=== PATIENT | male | born 1980 | race Caucasian/White ===

== ENCOUNTER → 2019-10-13 | Outpatient (CLI) | payer MEDICAID | LOC: M OUTALCOH 09:25 | PROVIDERS: ATTEND Psychiatry & Neurology Addiction Medicine | DX: F10.20 Alcohol dependence, uncomplicated (principal) ==

== ENCOUNTER 2019-11-14 13:18 | Outpatient (RCR) | payer MEDICAID | END 2019-11-16 | LOC: M OUTALCOH 13:18 | PROVIDERS: ATTEND Psychiatry & Neurology Addiction Medicine | DX: F10.20 Alcohol dependence, uncomplicated (principal); F17.200 Nicotine dependence, unspecified, uncomplicated ==

== ENCOUNTER → 2019-12-16 | Outpatient (RCR) | payer MEDICAID | LOC: M OUTALCOH 11-18 11:16 | PROVIDERS: ATTEND Psychiatry & Neurology Addiction Medicine | DX: F10.20 Alcohol dependence, uncomplicated (principal); F17.200 Nicotine dependence, unspecified, uncomplicated ==

== ENCOUNTER 2020-01-13 11:00 | Outpatient (RCR) | payer OTHER, MEDICAID | END 2020-01-16 | LOC: M OUTALCOH 11:00 | PROVIDERS: ATTEND Psychiatry & Neurology Addiction Medicine | DX: F10.20 Alcohol dependence, uncomplicated (principal); F17.200 Nicotine dependence, unspecified, uncomplicated ==

== ENCOUNTER 2020-02-09 10:00 | Outpatient (RCR) | payer MEDICAID, OTHER | END 2020-02-16 | LOC: M OUTALCOH 10:00 | PROVIDERS: ATTEND Psychiatry & Neurology Addiction Medicine | DX: F10.20 Alcohol dependence, uncomplicated (principal); F17.200 Nicotine dependence, unspecified, uncomplicated ==

== ENCOUNTER 2020-03-12 14:37 | Outpatient (RCR) | payer MEDICAID, OTHER | END 2020-03-17 | LOC: M OUTALCOH 14:37 | PROVIDERS: ATTEND Psychiatry & Neurology Addiction Medicine | DX: F10.20 Alcohol dependence, uncomplicated (principal); F17.200 Nicotine dependence, unspecified, uncomplicated ==

== ENCOUNTER 2020-04-14 13:35 | Outpatient (RCR) | payer MEDICAID | END 2020-04-17 | LOC: M OUTALCOH 13:35 | PROVIDERS: ATTEND Psychiatry & Neurology Addiction Medicine | DX: F10.20 Alcohol dependence, uncomplicated (principal); F17.200 Nicotine dependence, unspecified, uncomplicated ==

== ENCOUNTER → 2020-05-17 | Outpatient (RCR) | payer MEDICAID | LOC: M OUTALCOH 04-19 13:23 | PROVIDERS: ATTEND Psychiatry & Neurology Addiction Medicine | DX: F10.20 Alcohol dependence, uncomplicated (principal); F17.200 Nicotine dependence, unspecified, uncomplicated ==

== ENCOUNTER 2020-06-09 12:00 | Outpatient (RCR) | payer MEDICAID | END 2020-06-17 | LOC: M OUTALCOH 12:00 | PROVIDERS: ATTEND Psychiatry & Neurology Addiction Medicine | DX: F10.20 Alcohol dependence, uncomplicated (principal); F17.200 Nicotine dependence, unspecified, uncomplicated ==

== ENCOUNTER 2020-07-02 13:32 | Emergency (ER) | payer OTHER, MEDICAID ==
[~2020-07-02] VITALS: Ht 182.9 cm; Wt 76.6 kg
--- OUTSIDE RECORDS SUMMARY | 2020-07-02 13:41 | CCD ---
Author Author [facility] Organization [facility] Address Unknown Phone Unavailable Care Team Providers Care Bone Cooking Operator Name Role Phone Ella GUAMAN MD Unavailable Unavailable Ella GUAMAN MD Unavailable Unavailable Ella GUAMAN MD Unavailable Unavailable Ella GUAMAN MD Unavailable Unavailable Ella GUAMAN MD Unavailable Unavailable Ella GUAMAN MD Unavailable Unavailable Ella GUAMAN MD Unavailable Unavailable Ella GUAMAN MD Unavailable Unavailable Ella GUAMAN MD Unavailable Unavailable Ella GUAMAN MD Unavailable Unavailable Ella GUAMAN MD Unavailable Unavailable Ella GUAMAN MD Unavailable Unavailable Ella GUAMAN MD Unavailable Unavailable Ella GUAMAN MD Unavailable Unavailable Ella GUAMAN MD Unavailable Unavailable ANGIE ., T AILEEN . Unavailable Unavailable ADAMS ., T AILEEN . Unavailable Unavailable Chelsie ECHAVARRIA MD Unavailable Unavailable Chelsie ECHAVARRIA MD Unavailable Unavailable Chelsie ECHAVARRIA MD Unavailable Unavailable Chelsie ECHAVARRIA MD Unavailable Unavailable Chelsie ECHAVARRIA MD Unavailable Unavailable Chelsie ECHAVARRIA MD Unavailable Unavailable Chelsie ECHAVARRIA MD Unavailable Unavailable Chelsie ECHAVARRIA MD Unavailable Unavailable Chelsie ECHAVARRIA MD Unavailable Unavailable Chelsie ECHAVARRIA MD Unavailable Unavailable Chelsie ECHAVARRIA MD Unavailable Unavailable Chelsie ECHAVARRIA MD Unavailable Unavailable Chelsie ECHAVARRIA MD Unavailable Unavailable Richelle, L Cheri FRUIT OR NUT PICKER Unavailable Unavailable Richelle, L Cheri FRUIT OR NUT PICKER Unavailable Unavailable Richelle, L Cheri FRUIT OR NUT PICKER Unavailable Unavailable Richelle, L Cheri FRUIT OR NUT PICKER Unavailable Unavailable Richelle, L Cheri FRUIT OR NUT PICKER Unavailable Unavailable Richelle, L Cheri FRUIT OR NUT PICKER Unavailable Unavailable Richelle, L Cheri FRUIT OR NUT PICKER Unavailable Unavailable Richelle, L Cheri FRUIT OR NUT PICKER Unavailable Unavailable Richelle, L Cheri FRUIT OR NUT PICKER Unavailable Unavailable Richelle, L Cheri FRUIT OR NUT PICKER Unavailable Unavailable Richelle, L Cheri FRUIT OR NUT PICKER Unavailable Unavailable Richelle, L Cheri FRUIT OR NUT PICKER Unavailable Unavailable Richelle, L Cheri FRUIT OR NUT PICKER Unavailable Unavailable Richelle, L Cheri FRUIT OR NUT PICKER Unavailable Unavailable Richelle, L Cheri FRUIT OR NUT PICKER Unavailable Unavailable Richelle, L Cheri FRUIT OR NUT PICKER Unavailable Unavailable Richelle, L Cheri FRUIT OR NUT PICKER Unavailable Unavailable Richelle, L Cheri FRUIT OR NUT PICKER Unavailable Unavailable Richelle, L Cheri FRUIT OR NUT PICKER Unavailable Unavailable Richelle, L Cheri FRUIT OR NUT PICKER Unavailable Unavailable Richelle, L Cheri FRUIT OR NUT PICKER Unavailable Unavailable Richelle, L Cheri FRUIT OR NUT PICKER Unavailable Unavailable Richelle, L Cheri FRUIT OR NUT PICKER Unavailable Unavailable Richelle, L Cheri FRUIT OR NUT PICKER Unavailable Unavailable Richelle, L Cheri FRUIT OR NUT PICKER Unavailable Unavailable Richelle, L Cheri FRUIT OR NUT PICKER Unavailable Unavailable Richelle, L Cheri FRUIT OR NUT PICKER Unavailable Unavailable Richelle, L Cheri FRUIT OR NUT PICKER Unavailable Unavailable Richelle, L Cheri FRUIT OR NUT PICKER Unavailable Unavailable Richelle, L Cheri FRUIT OR NUT PICKER Unavailable Unavailable Richelle, L Cheri FRUIT OR NUT PICKER Unavailable Unavailable Richelle, L Cheri FRUIT OR NUT PICKER Unavailable Unavailable Richelle, L Cheri FRUIT OR NUT PICKER Unavailable Unavailable Richelle, L Cheri FRUIT OR NUT PICKER Unavailable Unavailable Richelle, L Cheri FRUIT OR NUT PICKER Unavailable Unavailable Richelle, L Cheri FRUIT OR NUT PICKER Unavailable Unavailable Richelle, L Cheri FRUIT OR NUT PICKER Unavailable Unavailable Santa Bolden MD Unavailable Unavailable Santa Bolden MD Unavailable Unavailable Santa Bolden MD Unavailable Unavailable Santa Bolden MD Unavailable Unavailable Santa Bolden MD Unavailable Unavailable Santa Bolden MD Unavailable Unavailable Santa Bolden MD Unavailable Unavailable Santa Bolden MD Unavailable Unavailable Santa Bolden MD Unavailable Unavailable Santa Bolden MD Unavailable Unavailable Santa Bolden MD Unavailable Unavailable Santa Bolden MD Unavailable Unavailable Santa Bolden MD Unavailable Unavailable Santa Bolden MD Unavailable Unavailable Santa Bolden MD Unavailable Unavailable Santa Bolden MD Unavailable Unavailable Santa Bolden MD Unavailable Unavailable Rabbia, C Jessenia Unavailable Unavailable Rabbia, C Jessenia Unavailable Unavailable Rabbia, C Jessenia Unavailable Unavailable SuryadeChelsie robert MD Unavailable Unavailable SuryadeChelsie robert MD Unavailable Unavailable SuryadevarChelsie guerra MD Unavailable Unavailable SuryadeChelsie robert MD Unavailable Unavailable SuryadeChelsie robert MD Unavailable Unavailable SuryadeChelsie robert MD Unavailable Unavailable SuryadevarChelsie guerra MD Unavailable Unavailable SuryadevarChelsie guerra MD Unavailable Unavailable SuryadeChelsie robert MD Unavailable Unavailable SuryadeChelsie robert MD Unavailable Unavailable SuryadeChelsie robert MD Unavailable Unavailable SuryadevarChelsie guerra MD Unavailable Unavailable SuryadevarChelsie guerra MD Unavailable Unavailable SuryadevarChelsie guerra MD Unavailable Unavailable SuryadevarChelsie guerra MD Unavailable Unavailable SuryadeChelsie robert MD Unavailable Unavailable SuryadeChelsie robert MD Unavailable Unavailable SuryadeChelsie robert MD Unavailable Unavailable SurChelsie williamson MD Unavailable Unavailable SuryadeChelsie robert MD Unavailable Unavailable SuryadeChelsie robert MD Unavailable Unavailable SuryadeChelsie robert MD Unavailable Unavailable SuryadeChelsie robert MD Unavailable Unavailable SuryadeChelsie robert MD Unavailable Unavailable SuryadeChelsie robert MD Unavailable Unavailable SuryadeChelsie robert MD Unavailable Unavailable SuryadeChelsie robert MD Unavailable Unavailable SuryadeChelsie robert MD Unavailable Unavailable SuryaChelsie lo MD Unavailable Unavailable SurChelsie williamson MD Unavailable Unavailable SuryaChelsie ol MD Unavailable Unavailable SuryaChelsie lo MD Unavailable Unavailable SuryadeChelsie robert MD Unavailable Unavailable Suryadevara C Amcody SUAZO Unavailable Unavailable SuryadevaraChelsie Amcody MD Unavailable Unavailable SuryadevaraChelsie Amcody MD Unavailable Unavailable SuryadevarChelsie guerra Amcody MD Unavailable Unavailable Suryadevara, Chelsie Amcody MD Unavailable Unavailable Suryadevara, C Amcody MD Unavailable Unavailable Suryadevara, C Amcody MD Unavailable Unavailable Suryadevara, C Amcody MD Unavailable Unavailable Suryadevara, C Amcody MD Unavailable Unavailable Suryadevara, C Amcody MD Unavailable Unavailable Suryadevara, C Amcody MD Unavailable Unavailable Suryadevara, C Amcody MD Unavailable Unavailable Suryadevara, C Amcody MD Unavailable Unavailable Suryadevara, C Amcody MD Unavailable Unavailable Suryadevara, C Amcoyd MD Unavailable Unavailable Suryadevara, C Amcody MD Unavailable Unavailable Suryadevara, C Amcody MD Unavailable Unavailable Suryadevara, C Amcody MD Unavailable Unavailable Suryadevara, C Amcody MD Unavailable Unavailable Suryadevara, C Amcody MD Unavailable Unavailable Mahapatra, Angana DO Unavailable Unavailable Mahapatra, Angana DO Unavailable Unavailable Mahapatra, Angana DO Unavailable Unavailable Mahapatra, Angana DO Unavailable Unavailable Mahapatra, Angana DO Unavailable Unavailable Mahapatra, Angana DO Unavailable Unavailable Mahapatra, Angana DO Unavailable Unavailable Mahapatra, Angana DO Unavailable Unavailable Mahapatra, Angana DO Unavailable Unavailable Mahapatra, Angana DO Unavailable Unavailable Mahapatra, Angana DO Unavailable Unavailable Mahapatra, Angana DO Unavailable Unavailable Mahapatra, Angana DO Unavailable Unavailable Mahapatra, Angana DO Unavailable Unavailable Mahapatra, Angana DO Unavailable Unavailable Mahapatra, Angana DO Unavailable Unavailable Mahapatra, Angana DO Unavailable Unavailable Mahapatra, Angana DO Unavailable Unavailable Mahapatra, Angana DO Unavailable Unavailable Mcdermott, F Lisa MD Unavailable Unavailable Mcdermott, F Lisa MD Unavailable Unavailable Mcdermott, F Lisa MD Unavailable Unavailable Mcdermott, F Lisa MD Unavailable Unavailable Mcdermott, F Lisa MD Unavailable Unavailable Mcdermott, F Lisa MD Unavailable Unavailable Mcdermott, F Lisa MD Unavailable Unavailable Mcdermott, F Lisa MD Unavailable Unavailable Mcdermott, F Lisa MD Unavailable Unavailable Mcdermott, F Lisa MD Unavailable Unavailable Mcdermott, Santa Gonzalez MD Unavailable Unavailable Mcdermott, Santa Gonzalez MD Unavailable Unavailable Mcdermott, F Lisa SUAZO Unavailable Unavailable Mcdermott, F Lisa SUAZO Unavailable Unavailable Mcdermott, F Lisa SUAZO Unavailable Unavailable Mcdermott, F Lisa SUAZO Unavailable Unavailable Mcdermott, F Lisa SUAZO Unavailable Unavailable Mcdermott, Santa Gonzalez MD Unavailable Unavailable Mcdermott, Santa Gonzalez MD Unavailable Unavailable Tirso GARCIA Unavailable Unavailable Mirna Hernandez MD Unavailable Unavailable Melo Sanchez MD Unavailable Unavailable LaMee, R Allan Unavailable LaMee, R Allan Unavailable LaMee, R Allan Unavailable LaMee, R Allan Unavailable YUKO, JOCELIN PA-C Unavailable Unavailable YUKO, JOCELIN PA-C Unavailable Unavailable YUKO, JOCELIN PA-C Unavailable Unavailable YUKO, JOCELIN PA-C Unavailable Unavailable YUKO, JOCELIN PA-C Unavailable Unavailable YUKO, JOCELIN PA-C Unavailable Unavailable YUKO, JOCELIN PA-C Unavailable Unavailable YUKO, JOCELIN PA-C Unavailable Unavailable YUKO, JOCELIN PA-C Unavailable Unavailable YUKO, JOCELIN PA-C Unavailable Unavailable YUKO, JOCELIN PA-C Unavailable Unavailable YUKO, JOCELIN PA-C Unavailable Unavailable YUKO, JOCELIN PA-C Unavailable Unavailable YUKO, JOCELIN PA-C Unavailable Unavailable YUKO, JOCELIN PA-C Unavailable Unavailable YUKO, JOCELIN PA-C Unavailable Unavailable YUKO, JOCELIN PA-C Unavailable Unavailable YUKO, JOCELIN PA-C Unavailable Unavailable YUKO, JOCELIN PA-C Unavailable Unavailable YUKO, JOCELIN PA-C Unavailable Unavailable YUKO, JOCELIN PA-C Unavailable Unavailable YUKO, JOCELIN PA-C Unavailable Unavailable YUKO, JOCELIN PA-C Unavailable Unavailable YUKO, JOCELIN PA-C Unavailable Unavailable YUKO, JOCELIN PA-C Unavailable Unavailable YUKO, JOCELIN PA-C Unavailable Unavailable YUKO, JOCELIN PA-C Unavailable Unavailable YUKO, JOCELIN PA-C Unavailable Unavailable YUKO, JOCELIN PA-C Unavailable Unavailable UYKO, JOCELIN PA-C Unavailable Unavailable YUKO, JOCELIN PA-C Unavailable Unavailable YUKO, JOCELIN PA-C Unavailable Unavailable YUKO, JOCELIN PA-C Unavailable Unavailable YUKO, JOCELIN PA-C Unavailable Unavailable YUKO, JOCELIN PA-C Unavailable Unavailable Eranki, P Anabelle Unavailable Unavailable Eranki, P Anabelle Unavailable Unavailable Eranki, P Anabelle Unavailable Unavailable Eranki, P Anabelle Unavailable Unavailable Eranki, P Anabelle Unavailable Unavailable Eranki, P Anabelle Unavailable Unavailable Eranki, P Anabelle Unavailable Unavailable Eranki, P Anabelle Unavailable Unavailable Eranki, P Anabelle Unavailable Unavailable Eranki, P Anabelle Unavailable Unavailable Eranki, P Anabelle Unavailable Unavailable Eranki, P Anabelle Unavailable Unavailable Eranki, P Anabelle Unavailable Unavailable Eranki, P Anabelle Unavailable Unavailable Eranki, P Anabelle Unavailable Unavailable Eranki, P Anabelle Unavailable Unavailable Eranki, P Anabelle Unavailable Unavailable Eranki, P Anabelle Unavailable Unavailable Eranki, P Anabelle Unavailable Unavailable Eranki, P Anabelle Unavailable Unavailable Eranki, P Anabelle Unavailable Unavailable Eranki, P Anabelle Unavailable Unavailable Eranki, P Anabelle Unavailable Unavailable Eranki, P Anabelle Unavailable Unavailable Eranki, P Anabelle Unavailable Unavailable Eranki, P Anabelle Unavailable Unavailable Eranki, P Anabelle Unavailable Unavailable Eranki, P Anabelle Unavailable Unavailable Eranki, P Anabelle Unavailable Unavailable Eranki, P Anabelle Unavailable Unavailable Eranki, P Anabelle Unavailable Unavailable Eranki, P Anabelle Unavailable Unavailable Eranki, P Anabelle Unavailable Unavailable Eranki, P Anabelle Unavailable Unavailable Eranki, P Anabelle Unavailable Unavailable Eranki, P Anabelle Unavailable Unavailable Eranki, P Anabelle Unavailable Unavailable Eranki, P Anabelle Unavailable Unavailable Eranki, P Anabelle Unavailable Unavailable Eranki, P Anabelle Unavailable Unavailable Eranki, P Anabelle Unavailable Unavailable Eranki, P Anabelle Unavailable Unavailable Eranki, P Anabelle Unavailable Unavailable Eranki, P Anabelle Unavailable Unavailable Eranki, P Anabelle Unavailable Unavailable Eranki, P Anabelle Unavailable Unavailable Eranki, P Anabelle Unavailable Unavailable Eranki, P Anabelle Unavailable Unavailable Eranki, P Anabelle Unavailable Unavailable Eranki, P Anabelle Unavailable Unavailable Eranki, P Anabelle Unavailable Unavailable Eranki, P Anabelle Unavailable Unavailable Eranki, P Anabelle Unavailable Unavailable Eranki, P Anabelle Unavailable Unavailable Eranki, P Anabelle Unavailable Unavailable Eranki, P Anabelle Unavailable Unavailable Eranki, P Anabelle Unavailable Unavailable Re-disclosure Warning The records that you are about to access may contain information from federally-assisted alcohol or drug abuse programs. If such information is present, then the following federally mandated warning applies: This information has been disclosed to you from records protected by federal confidentiality rules (42 CFR part 2). The federal rules prohibit you from making any further disclosure of this information unless further disclosure is expressly permitted by the written consent of the person to whom it pertains or as otherwise permitted by 42 CFR part 2. A general authorization for the release of medical or other information is NOT sufficient for this purpose. The Federal rules restrict any use of the information to criminally investigate or prosecute any alcohol or drug abuse patient.The records that you are about to access may contain highly sensitive health information, the redisclosure of which is protected by Article 27-F of the [facility] Public Health law. If you continue you may have access to information: Regarding HIV / AIDS; Provided by facilities licensed or operated by the [facility] Office of Mental Health; or Provided by the [facility] Office for People With Developmental Disabilities. If such information is present, then the following [facility] mandated warning applies: This information has been disclosed to you from confidential records which are protected by state law. State law prohibits you from making any further disclosure of this information without the specific written consent of the person to whom it pertains, or as otherwise permitted by law. Any unauthorized further disclosure in violation of state law may result in a fine or alf sentence or both. A general authorization for the release of medical or other information is NOT sufficient authorization for further disc losure. Allergies and Adverse Reactions Type Description Substance Reaction Status Data Source(s ) DRUG INGREDI OLIVE OIL OLIVE OIL Rash [facility] ivory soap ivory soap [facility] Drug allergy bismuth subsalicylate bismuth subsalicylate [facility] Family History Family Member Name Family Member Gender Family Member Status Date o f Status Description Data Source(s) Unknown Condition [facility] Unknown Condition [facility] Unknown Condition [facility] Unknown Condition [facility] Encounters Encounter Providers Location Date Indications Data Source(s ) Outpatient Attender: Dale Milan MD 10/16/2019 12:00: 00 AM EDT [facility] Emergency [id number] 08/26/2019 05:42 :00 PM EDT - 08/26/2019 09:38:00 PM EDT Emesis, Cough, r/o [place] Virus [facility] pital Emesis, Cough, r/o [place] Virus Patient discharged. Outpatient Attender: Dale Milan MD 08/21/2019 12:00: 00 AM [facility] Outpatient Attender: Anabelle ElliottReferrer: Dale guerra MD 08/13/2019 12:00:00 AM [facility] Outpatient Attender: JOCELIN Jamesonrer: Dale williamson MD 08/08/2019 12:00:00 AM [facility] Outpatient Attender: Dale Milan MD 07/31/2019 12:00: 00 AM [facility] Emergency [id number] 07/30/2019 08:13 :00 AM EST - 07/30/2019 11:31:00 AM EST Presence of other vascular implants and grafts [facility] Presence of other vascular implants and grafts Patient discharged. Outpatient Attender: JOCELIN Jamesonrer: Dale Milan MD [id number] 07/30/2019 12:00:00 AM EST - 07/30/2019 12:56:04 PM ES T Inflammatory conditions of jaws [facility] Inflammatory conditions of jaws Outpatient Attender: Cheri Peoples NPReferrer: Dale stevenson MD 07/28/2019 12:00:00 AM [facility] Outpatient Attender: JOCELIN Jamesonrer: Dale williamson MD 07/25/2019 12:00:00 AM EST [facility] Emergency 07/24/2019 07:57:00 AM EST - 07/24/2019 08:47:00 AM EST Pic Line issue [facility] Pic Line issue Patient discharged. Emergency Attender: JACOBO ECHAVARRIA MD [id number] 07/24/2019 04:36:00 AM EST - 07/24/2019 07:33:00 AM EST Encounter for other specified aftercare [facility] Encounter for other specified aftercare Patient discharged. Outpatient Referrer: Panfilo Morrow DO 07/22/2019 03:38:00 PM EST Inflammatory conditions of jaws [facility] Inflammatory conditions of jaws Outpatient Attender: Dale Milan MD [id number] 12:00:00 AM EST - 07/17/2019 04:07:01 PM EST Fracture of mandible of other specified site, subsequent encounter for fracture with nonunion [facility] Fracture of mandible of other specified site, subsequent encounter for fracture with nonunion Outpatient Attender: Dale Milan MD 07/17/2019 12:00: 00 AM [facility] Outpatient Attender: AILEEN ADAMS .Referrer: AILEEN ADAMS . 07/14/2019 12:00:00 AM EST Abscess of salivary gland [facility] Abscess of salivary gland Outpatient Attender: Dale Milan MDReferrer: Dale silva MD 07/08/2019 12:00:00 AM EST Abscess of [facility] gland [facility] Abscess of salivary gland Outpatient Attender: Dale Milan MD [id number] 12:00:00 AM EST - 07/03/2019 03:00:58 PM EST [facility] Out[facility] Attender: Darren Sanchez MD 07/02/2019 12:00:00 AM EST Veterinary Virologist [facility] Veterinary Virologist Outpatient Attender: Dale Milan MDReferrer: Dale silva MD 06/28/2019 12:00:00 AM [facility] Inpatient Attender: Dale Bae DAttender: KARLY GUAMAN MDAdmitter: Dale Milan MDReferrer: Allan Luis [id number] 0 12:00:00 AM EST - 07/01/2019 12:00:00 AM EST Fracture of unspecified part of body of right mandible, subsequent encounter for fracture with nonunion [facility] Fracture of unspecified part of body of right mandible, subsequent encounter for fracture with nonunion Patient discharged. Emergency Attender: Mirna Hernandez MD 06/25 02:59:00 PM EST - 06/25/2019 03:35:00 PM EST [facility]/mouth [facility]/mouth and jaw complaint Patient discharged. 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 Outpatient Attender: Jessenia MccrackenReferrer: Dale Milan MD 06/24/2019 12:00:00 AM [facility] pretest Outpatient Attender: Dale Milan MD [id number] 12:00:00 AM [facility] - 06/19/2019 02:05:24 PM EST Fracture of unspecified part of body of right mandible, subsequent encounter for fracture with nonunion [facility] Fracture of unspecified part of body of right mandible, subsequent encounter for fracture with nonunion Emergency Attender: Lisa Mcdermott MD 06/08/20 03:45:00 PM [facility] - 06/08/2019 05:27:00 PM EST [facility]/Jaw injury Patient discharged. Outpatient Attender: Dale Milan MD 06/05/2019 12:00: 00 AM [facility] Outpatient Attender: Dale Milan MD 05/29/2019 12:00: 00 AM [facility] Emergency Attender: ROLANDO GARCIAAttender: Raffi kessler MD [id number] 05/27/2019 12:00:00 AM [facility] - 05/27/2019 05:14:00 PM EST Fracture of unspecified part of body of right mandible, initial encounter for closed fracture [facility] Fracture of unspecified part of body of right mandible, initial encounter for closed fracture Patient discharged. Medications Medication Brand Name Start Date Product Form Dose Route Admi nistrative Instructions Pharmacy Instructions Status Indications Reaction Description Data Source(s) Ibuprofen 200 MG Oral Capsule Ibuprofen 09/26/2019 12:00:00 AM EDT active [facility] ([facility]) Acetaminophen 325 MG Oral Tablet acetaminophen (TYLENO L) tablet 975 mg acetaminophen (TYLENOL) tablet 975 mg 07/30/2019 09:45:00 AM EST 97 5 mg Oral completed 975 mg, Oral, O nce, 07/30/19 at 0945, For 1 dose
Maximum daily dose of acetaminophen is 3,000 mg from all sources in 24 hours.
[facility] Medication administered onsite Amoxicillin 875 MG / Clavulanate 125 MG Oral Tablet Amoxicillin-Pot Clavulanate 875-125 MG Oral Tablet Amoxicillin-Pot Clavulanate 875-125 MG Oral Tablet 07/30/2019 12:00:00 AM EST 1 {tbl} Oral active Take 1 tablet by mouth Two Times Daily for 7 days [facility] Amoxicillin 875 MG / Clavulanate 125 MG Oral Tablet Amoxicillin-Pot Clavulanate 875-125 MG Oral Tablet Amoxicillin-Pot Clavulanate 875-125 MG Oral Tablet 07/30/2019 12:00:00 AM EST 1 {tbl} Oral active Take 1 tablet by mouth Two Times Daily [facility] chlorhexidine gluconate 1.2 MG/ML Mouthw venice chlorhexidine (PERIDEX) 0.12 % solution 15 mL chlorhexidine (PERIDEX) 0.12 % solution 15 mL 07/24/19 20 09:00:00 AM EST 15 mL Mouth/Throat aborted 15 mL, Mouth/Throat, 2 Times Daily, First dose on Yarelis 07/24/19 at 0900, For 30 days
Do not swallow.
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 Use as directed 15 mLs in the mouth or throat Three times daily [facility] 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 sodium chloride 0.9 % SOLN 50 mL with ertapenem 1 g SOLR 1,0 00 mg 07/02/2019 12:00:00 AM EST 1000 mg Intravenous active Inject 1,000 mg into the vein every 24 (twenty-four) hours [facility] 24 HR Nicotine 0.583 MG/HR Transdermal P atch Nicotine 14 MG/24HR Transdermal Patch 24 Hour (NICODERM CQ) Nicotine 14 MG/24HR Transdermal Patch 24 Hour (NICODERM CQ) 07/02/2019 12:00:00 AM EST 1 {patch} Transdermal active Place 1 patch onto the skin daily [facility] 1 ML heparin sodium, porcine 100 UNT/ML Injection Heparin Lock Flush 100 UNIT/ML Intravenous Solution Heparin Lock Flush 100 UNIT/ML Intravenous Solution 07/02/2019 12:00:00 AM EST 500 U Intracatheter aborted Encounter for long- term (current) use of antibioticsOsteomyelitis of mandible 5 mLs by Intracatheter route as needed (PRN for after IV infusion and as needed) [facility] Encounter for long-term (current) use of antibiotics Osteomyelitis of mandible Ertapenem Sodium 1 GM Intravenous Solution Reconstituted (IN VANZ) [id number] 07/02/2019 12:00:00 AM EST 1 g Intravenous a borted Encounter for long-term (current) use of antibioticsOsteomyelitis of mandible Inject 1 g into the vein every 24 (twenty-four) hours [facility] Encounter for long-term (current) use of antibiotics Osteomyelitis of mandible Sodium Chloride Flush 0.9 % Intravenous Solution [id number] 1 07/02/2019 12:00:00 AM EST 10 mL Intravenous aborted En counter for long-term (current) use of antibioticsOsteomyelitis of mandible Inject 10 mLs into the vein as needed (for before and after infusion and PRN) [facility] Encounter for long-term (current) use of antibiotics Osteomyelitis of mandible Vitamin B 12 0.1 MG Oral Tablet Cyanocobalamin 100 MCG Oral Tablet Cyanocobalamin 100 MCG Oral Tablet 07/02/2019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 METABOLIC PANEL COMPREHENSIVE METABOLIC PANEL Rou lizzie 07/14/2019 1:00 PM EST 07/14/2019 06:00:00 PM [facility] SEDIMENTATION RATE RBC AUTOMATED SEDIMENTATION RATE, AUTOMATED Routine 07/08/2019 4:30 AM EST 07/08/2019 09:30:00 AM [facility] BLOOD COUNT COMPLETE AUTO&AUTO DIFRNTL WBC COUNT CBC AND DIFFER ENTIAL Routine 07/08/2019 4:30 AM EST 07/08/2019 09:30:00 AM [facility] C-REACTIVE PROTEIN C-REACTIVE PROTEIN Routine 07/08/2019 4:[address] 07/08/2019 09:30:00 AM [facility] COMPREHENSIVE METABOLIC PANEL COMPREHENSIVE METABOLIC PANEL Rou lizzie 07/08/2019 4:30 AM EST 07/08/2019 09:30:00 AM [facility] CREATININE BLOOD CREATININE WITH GFR Routine 07/01/2019 9:44 AM ES T 07/01/2019 02:44:00 PM [facility] DRUG SCREEN QUALITATIVE VANCOMYCIN VANCOMYCIN, TROUGH Routine 06/30/2019 6:13 AM EST 06/30/2019 11:13:00 AM [facility] PICC ULTRASOUND - BEDSIDE PROCEDURE PICC ULTRASOUND - BEDSI DE PROCEDURE Routine 06/29/2019 8:17 AM EST 06/29/2019 01:17:00 PM [facility] FOLIC ACID SERUM FOLATE Routine 06/28/2019 8:35 PM EST 06/29/2019 01:35:00 AM [facility] SEDIMENTATION RATE RBC AUTOMATED SEDIMENTATION RATE, AUTOMATED Routine 06/28/2019 8:33 PM EST 06/29/2019 01:33:00 AM [facility] C-REACTIVE PROTEIN C-REACTIVE PROTEIN Routine 06/28/2019 8:[address] 06/29/2019 01:33:00 AM [facility] CYANOCOBALAMIN VITAMIN B-12 VITAMIN B12 Routine 06/28/2019 8:33 PM EST 06/29/2019 01:33:00 AM [facility] XR CHEST FRONTAL ONLY [id number] XR CHEST FRONTAL ONLY [id number] Routine 06/28/2019 2:20 PM EST 06/28/2019 07:20:00 PM [facility] RADIOLOG EXAM MANDIBLE COMPL MINIMUM 4 VIEWS XR MANDIBLE 4 OR MORE VIEWS [id number] Routine 06/28/2019 10:12 AM EST 06/28/2019 03:12:49 PM [facility] CUL BACT XCPT URINE BLOOD/STOOL AEROBIC ISOL BX/SURG TISSUE CUL TURE 1 Routine 06/27/2019 6:37 PM EST 06/27/2019 11:37:00 PM [facility] CUL BACT XCPT URINE BLOOD/STOOL AEROBIC ISOL WOUND CULTURE Ro utine 06/27/2019 6:36 PM EST 06/27/2019 11:36:00 PM [facility] OPEN TREATMENT, MANDIBULAR FX, COMPLICATED, MULTIPLE A PPROACHES W/INT FIXATION OPEN TREATMENT, MANDIBULAR FX, COMPLICATED, MULTIPLE APPROACHES W/INT FIXATION 06/27/2019 2:09 PM EST 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 06/27/2019 07:09:00 PM EST - 06/28/2019 12:39:00 AM EST Closed Fracture Of Right Side Of Mandibular Body With Nonunion [facility] Closed Fracture Of Right Side Of Mandibu lar Body With Nonunion CUL BACT XCPT URINE BLOOD/STOOL AEROBIC ISOL WOUND CULTURE ST AT 06/26/2019 10:32 AM EST 06/26/2019 03:32:00 PM [facility] CT MAXILLOFACIAL W/CONTRAST MATERIAL CT MAXILLOFACIAL WITH CONT RAST [id number] STAT 06/26/2019 10:13 AM EST 06/26/2019 03:13:07 PM [facility] EKG ED PHYSICIAN INTERPRETATION EKG ED PHYSICIAN INTERPRETATION Routine 06/26/2019 9:52 AM EST 06/26/2019 02:52:43 PM [facility] EKG 12-LEAD - CMAXX REPORT EKG 12-LEAD - CMAXX REPORT 06/26/2019 9:46 AM EST 06/26/2019 02:46:13 PM [facility] EKG 12-LEAD - CMAXX REPORT EKG 12-LEAD - CMAXX REPORT 06/26/2019 9:46 AM EST 06/26/2019 02:46:13 PM [facility] EKG 12-LEAD EKG 12-LEAD STAT 06/26/2019 9:46 AM EST 06/26/2019 02:46:13 PM [facility] ETHYL ALCOHOL LEVEL ETHYL ALCOHOL LEVEL STAT 06/26/2019 9:21 AM EST 06/26/2019 02:21:00 PM [facility] PROTHROMBIN TIME PROTIME INR Routine 06/26/2019 9:21 AM EST 06/26/2019 02:21:00 PM [facility] BLOOD COUNT COMPLETE AUTO&AUTO DIFRNTL WBC COUNT CBC AND DIFFER ENTIAL STAT 06/26/2019 9:21 AM EST 06/26/2019 02:21:00 PM [facility] PHOSPHORUS INORGANIC PHOSPHORUS LEVEL Routine 06/26/2019 9:[address] 06/26/2019 02:21:00 PM [facility] MAGNESIUM MAGNESIUM LEVEL Routine 06/26/2019 9:21 AM EST 06/26/2019 02:21:00 PM [facility] COMPREHENSIVE METABOLIC PANEL COMPREHENSIVE METABOLIC PANEL STA T 06/26/2019 9:21 AM EST 06/26/2019 02:21:00 PM [facility] SURGERY CASE REQUEST OUTSIDE FACILITY ONLY SURGERY CA SE REQUEST OUTSIDE FACILITY ONLY Routine 06/19/2019 5:10 PM EST Closed Fracture Of Right Side Of Mandibular Body With Nonunion 06/19/2019 10:10:40 PM EST Closed Fracture Of Right Side Of Mandibular Body With Nonunion [facility] Closed Fracture Of Right Side Of Mandibu lar Body With Nonunion DRUGS OF ABUSE, URINE DRUGS OF ABUSE, URINE STAT 05/27/2019 10:0 7 AM EST 05/27/2019 03:07:00 PM [facility] ETHYL ALCOHOL LEVEL ETHYL ALCOHOL LEVEL STAT 05/27/2019 9:24 AM EST 05/27/2019 02:24:00 PM [facility] BLOOD COUNT COMPLETE AUTO&AUTO DIFRNTL WBC COUNT CBC AND DIFFER ENTIAL STAT 05/27/2019 8:06 AM EST 05/27/2019 01:06:00 PM [facility] BASIC METABOLIC PANEL CALCIUM TOTAL BASIC METABOLIC PANEL STAT 05/27/2019 8:06 AM EST 05/27/2019 01:06:00 PM [facility] CT MAXILLOFACIAL W/O CONTRAST MATERIAL CT MAXILLOFACIAL WIT HOUT CONTRAST [id number] STAT 05/27/2019 7:59 AM EST 05/27/2019 12:59:31 PM [facility] Results ID Date Data Source [id number] 08/27/2019 04:17:50 PM EDT [facility] Name Value Range Interpretation Code Description Data Chhaya rce(s) Supporting Document(s) ED Provider Note [facility] UJRJAg1wUqIYDeCx25/ZOWdyQJOtk5AqIFhrMQh7EZtvMODdZ3EtGSY0cW5iGST9OHaUYyZaAbMrFrVr lbm [file] VDXnCOKaKcSiNTCEWVjtLW8LDS3vjsT8OJ1ScTZkBPRlYJIceXIvLOe9T78snIWqLHieSH5CLRX+Harry+ Hz6XTYFjHUAnYOHqPsRwRNKPXfJlJ5TcD6DPv8TpN8 LdIA57nSliwjQlGJwiBR5COA5hZQUuGIQRSI5EhTTstO7uobXcYiQyYEUKNeLuG81nhLYbAQZcYNIgMH DpLs1TYCLhZ8LaajVbpVwmpcYpSMTaXBJQIL7RYHdtnrDclMKchBjdFY56hRiyUV2PSq3LSsEkER3tki 4CfSCfOl0EEZYnNu5ZFKYsBCViAGWvKCG0EGKdSmFd ILzxJVYuGLOxXAS0JZPeFULzRV8GLhXrSWDwOObvUbJeLFGyOHJzgw7ZUVKtRUTdMMf4UEAzNYLvEYBn VNarLMSjSXHmPCE8IDKrHHLyPZ9WXfVkOZRzTQF8VYMpXXAiKXTojr8RAMAyMIUvPjl6RDDiMQEwRSQt GMxeGJVsAQYhIPMyQPUeWBRsSW3RFsFpIABlUMYzKv abQFKaSGPmgl9KUMNuFSAkABAnEAGoBCHyFZJjCCvfIPMjGOT8YQi6JYEvQWTnEP9VYyIeDGReIAFiQg noYAZpKJVdsb3VKFGgOMIpTVF6CyUgCSOnKHUxPTbkRQRrFUZ9XZZ9BNQkVHQxKM9QOrOlUPAsAZR0Lf IeGDKmMSNkmx0EOEIcEYJwTpufMuCcFDKnPRQwYWxd UYRtFEM4ZpNbICJlKEWgID9NZiJbFPVaNSq4GUEtOJPnNUTacn4GNJOdWVVqJEedTlIxBBRvGEVjFDpa ROHzGKH5SQGcHQBrFMNcBI5IFeOkCCNzJYeyKLuoIJXhYMXbfd9QLPGgBPMyDESlWCRuJWBfDGOdIAfa WEFmXXLiQPPkHCQfKZAqEL3SHmRdQOLwFsXbNtOaKT PgOMFnht2FGYQzHLTyHVF5VYQoMWThMRKlZYypCSDnUXYcPda9IKUrRLSpEM9ALbTsNAYpUnR6ZGEcTQ DrQKKifr1TaGAisXjuqw4ROVzXDw6IoNilNID2EXobBq4qzHLkIuTgNHECVv1AhiQpRLHbNLQPLDvdKK GoEZWjQ7PrIkVjEFLqHYCjUHZ2GtS5JoDcRfPsJcqr IoRdOdF9PjLdFJUsPdDdKjSvTQIfKNRjDAKkCxYnYhF3QCX0CRU+CJ0rPNe+Ov4Eb3OkyrU3jdGdMYlb QFq2Wv9DYUXWS0QUXx== ID Date Data Source [id number] 07/30/2019 02:10:14 PM EST [facility] Name Value Range Interpretation Code Description Data Chhaya rce(s) Supporting Document(s) ED Provider Note [facility] XLDMBb1cIjCXMfLt74/GLOsnGOUck4RjOQjaYXb8JZabLZDwO1VzQKI4uX5hORV4GVjYKbQlYxMeFwUq lbm [file] 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+Yn4qkwFjiuhbvE0BqDrzhGENj3H4ttuNpe5oYutVMEgV8kitmeHSKmARX/ClOJ2ENN+onzpw/dPCK [file] 0xUoqTkdNjbSGVyaMRBO0AdA0h1jRxIeqrvrfF/golf ball molder [file] AgICAgICAgICAgICAgICAgICAgICAgICAgICAgICAgICAgICAgICAgICAgICAgICANCiAgICAgICAgIC AgICAgICAgICAgICAgICAgICAgICAgICAgICAgICAg ICAgICAgICAgICAgICAgICAgICAgICAgICAgICAgICAgICAgICAgICAgICAgICAgICAgICAgICAgICAN CiAgICAgICAgICAgICAgICAgICAgICAgICAgICAgICAgICAgICAgICAgICAgICAgICAgICAgICAgICAg ICAgICAgICAgICAgICAgICAgICAgICAgICAgICAgIC AgICAgICAgICANCiAgICAgICAgICAgICAgICAgICAgICAgICAgICAgICAgICAgICAgICAgICAgICAgIC AgICAgICAgICAgICAgICAgICAgICAgICAgICAgICAgICAgICAgICAgICAgICAgICAgICANCiAgICAgIC AgICAgICAgICAgICAgICAgICAgICAgICAgICAgICAg ICAgICAgICAgICAgICAgICAgICAgICAgICAgICAgICAgICAgICAgICAgICAgICAgICAgICAgICAgICAg ICANCiAgICAgICAgICAgICAgICAgICAgICAgICAgICAgICAgICAgICAgICAgICAgICAgICAgICAgICAg ICAgICAgICAgICAgICAgICAgICAgICAgICAgICAgIC AgICAgICAgICAgICANCiAgICAgICAgICAgICAgICAgICAgICAgICAgICAgICAgICAgICAgICAgICAgIC AgICAgICAgICAgICAgICAgICAgICAgICAgICAgICAgICAgICAgICAgICAgICAgICAgICAgICANCiAgIC AgICAgICAgICAgICAgICAgICAgICAgICAgICAgICAg ICAgICAgICAgICAgICAgICAgICAgICAgICAgICAgICAgICAgICAgICAgICAgICAgICAgICAgICAgICAg ICAgICANCiAgICAgICAgICAgICAgICAgICAgICAgICAgICAgICAgICAgICAgICAgICAgICAgICAgICAg ICAgICAgICAgICAgICAgICAgICAgICAgICAgICAgIC AgICAgICAgICAgICAgICANCiAgICAgICAgICAgICAgICAgICAgICAgICAgICAgICAgICAgICAgICAgIC AgICAgICAgICAgICAgICAgICAgICAgICAgICAgICAgICAgICAgICAgICAgICAgICAgICAgICAgICANCj w/jWPqQ2voyTOippV0K6scTr6YGa1BLJ4ce7VuSFOw KRicceGnZeiNYxYwMAPvYslPRok0JElkRX7HgFYtH3TmW8UoUHzsDQ7PIKCbUPSzbNFcJHJhAOAuSaE6 BMJnKPixKV1GmOSvKCglKJApFEJmDpIaFVTcWRFcNUFkMEKcVOWTZSUsAYOmSeRaLBAbRZQrZTsuMKGY HCP5LMYfToGoUCNuQCJcLsRwAJNQNS1DGlKsO0GtxW 50IDEwDQo+Jt9FXM0md9HgECy9UtKwZU5wlh8PDEsQLfHuW7RelkI7KFT5UHThYv3YUCKbPKOswCP1EW IfFGVLDcKdA3ZmkV78HSQTBb4+LCbtsjCdPqnYZyK4AWEuw2ArIBi9JT2YSFHiZQe1bHUmFLDuEQBrrt csKRLqGl70TYItUgjjPGGdQJaaLhHHnUfdPEHsUVUL YOT5AIBpKGKoPcFgAEBlTRyvXsUHVQoDDbXfX4Gsi5FiCqD3ILNmArGtGMrzGYMfVoInIW73tAuzFY1G QGKjFVGiKO37FTD9FIFkVz0VOIZeHcZ7aOK0QJWqNWTEBz9+CPzmfnSlAsbAGoW6DAZbk7PrBCh7QT5F PKHfTWc6tJFhAXRoMBCrlipjUZThKe04GTAwXnpkAH IpWSxvUnOWnPnzXJHhFHLOXKR4UJGkCYPkNoGzBANdLMpoWjRUKHbOKaOuM4Yhv7YzRtUfKuSrSDMrI2 iHTfMjVDIkHsAchFfpOR6BPbMpZ6QnrjEifVG3JfPlXUZBOpKoF7GpJBNoYJbvMBWVDFzuZU9PCEt2KI K0TVMtQs5QWp1XZmGrBS2bwx6DLHozAYKxHwhSPcf4 NQzhIG8AvWWyKKxMCVSBt4MalvHswIHNeEddnAFmQDCvJLTbZ1tcALUQSCO3FNIbQXFaIfYvILExSDct AFBMSCbUDhUtI6Kmk0QpAcQoLCXtWUGhJ2sPMaRwVYM1KDNcpHvwLD3JIvQaP3WtykRiaRJ9AxDdQUZH CjCuT6LiGVQsLEmiZDTJGBhaGV1HCKx8ATPgYAFaAg 8EPm1YBfJkPT9xiu1EMMMtXGFpTboPAwl4BOmcYE5SlGZfWYaEBZEVcfdzI6VqDc20YRVpBsezTpRmzb liKHZfLDWKbZPjzSTkB7rmQFNZQHH1MBKaJYMmIwMuJZRtCAfvTKJJAPrEXkZzL4Pmb4JwMeQdHYRzHU OwN8rUHgQkGEojVE96hVvuGR2TDDYrZXPgIK36VDL5 TFEsNd8XKOVoCVPoauV5QUTzFIQOYl7+HVdbusEbXghFPsRgIULib5ZyMRs2MS5BOXBbOExiLC8PFJUm lL2mJCzsXK4AZtV8WDCcVIMYRoSxP88kwZWuVIm9K5SiVaYjZHQuEobfHEZmPUgvGxImAGDqViPgLTkd ID4+ID4+FBxdWV7EYPfmkiCgKTPtVk4DJWLyZDCrNY 8zBXHgRBUlO2A9hXlxKIKAYcRuQ6tvaknnRB7xBDBbY027tYobcfDeAVC1QXPjLo5HBRDcQSO2DTYijI ZzNPFuXXPGTDsoNR3FiFBzLGZ2sR5tHDnlJJIgMHNkA6oFQaMhfYwyIB50jSppyzEcfMXrZDn+Pg0KZW 7bz3MhXJw3wuTgWUwkAYEkTOeaHRGjVNDuKNDeORE4 TEH2IHXYEtHcCIDgYORxCBidGNJkWWYlnc0GNRDfQIP8AJD6UBYzULEhABUqBIdzZERwXXKqOoR9IYRt TDZmNS4KOxQnAMPiCXKqUBslPLHmDWHwfj9WWZDwIFNnQjSwWWZkYTVsYPQtNHfaDVBqEVVzTVClRZSl KXFoZE6CEzVjJIMeCBOtLKLzLBVxUYThwf9WZWGnJD AgZmS3CdSrHNIuKEKaWSrqNGHqPSC2CPh6KLZpLWRuWO5VXeFsIXKqKFnkLZjlZZLmWKXvjr0KUJKySG VgImY9BPOhAHFzVOFfOAhtEPUfNCXkNQr3RQGfPNAkJZ3ITrSwEJHmLIA2RAfhRGUgLSKsuc6YNOJmNF FoBeLwRUMaLUOfCTEpGKshMCWuLMJ8XBU3XBJoWOPf LT0JBxIkPNLaEAcoVeFpPKOtWASeol3QMBCxRQEbWJD5EuJzWUTwGEDzAYipMUSsXGZvEPIvTVVhRIZu PW0DJbIoMDPrNbN8NXwcXCMpIKUotf2DUUYbCRBsWWPhFPYbQYWrZMWqXRgmAUVfSPU0RBMmKKEuZUGx CP5MIwDiDMOoBsrrAhrvFCBuZEUcgp5TRMDqLOArOW E7FSFcJHFyOVLnUBkjWSGtADK9NBdrKAQkGKAaZL4RBzEcKLSqXyQ8TvWpBQXnACEojr3ZFEFtZHJtPE rdQHAdMIDyGKPhNDwmCKRtTRAkXXPuTKZcGSGgOM4JBtStXNFiCfU3KmDnXUNaAVWpux2NOFWyAKNpHj U1TaHqYPZxVGOjNJrfXTNzGWVmWuNnGYPfTGEiDM0J SkMwRWPiIvDwRhQqNWObIMHufw3FYBHmRVHrNyBjXwFhOBHkKNZgKGnrVXLrQACyQfWyAXIfTZWdQW8I BrJtMHTkAIW1BFLjJSEdZEAggo4GDWCmSMW8SCPuHlGhMQIgRCSdVEyyXBWhKMB7VESrUCPiIOXxPP1T XrXqPNMjYOA2JLZaXYYpQUDniu8XSLGxULF7DJo4Xd TqUDCnGHOrOXusOGLmXZG0GLDsXNOhIAYaBX1HGaTyWGVeBAwzUgxjMPCfXJZkrn9VSTPgITO3BdWnSh FzIXMwKCTnLRgyQCJoPCH8GPAoXRAyTRQmZI1GNjSbCVYvDEogVMXoRDDcZZYaup9KNJLnMAO1MEViVS PbDJVeMHVePRgxFUHmBLG8EQZ3MAShLNXgYK1FAbBi KZDoPKN9UwbkJIQdLUTjxj9FPUEpBVX4NRIcCCQfSIElYCHpCNvvOASkMVWiJhZ0NFGdANTaFS4UPgBu PLTyQBO4ERPaGKCaFILnjz3MQNUaYBR4TCE1HDMqGNRaTPMaFEgxEHHmYWYqSuRkILRsPKNeOU1NYkPq CXitSMTJErg2ROogK7n6EKZ8Gb7HH7Vvs5VuPFAoPY NEJQtmMZ5rbpQxCFFsBg9AH5xVYyaiM6HoKNTlFXB1GNM4I1DpWnozDPCkD5W3CrB1M4AgMB0tNRC9VA ApEjMoWpBjHNioWaYqUVEeDANbVuK7CRd8NqRoPsDcBG3WBr5GJdP8FVV6jMYxJo7QVTN3WTACLjFeGS 9GDQo= ID Date Data Source [id number] 07/30/2019 12:57:15 PM EST [facility] Name Value Range Interpretation Code Description Data Chhaya rce(s) Supporting Document(s) Progress Note [facility] CFKKCr3vCdJZWyBb75/WSIyhKITad1WyFLstIYa4YIpdBSGzA0IpZDU7uG6fZEA8VHgEOpRrFtMrSpWl lbm [file] 0e/Jodie/BSKYATi8X8f8g21DPY2sQsUMDQiKaGJM0lfYchW7sfTMqybXVLMYRFcOnwxXVYHPJnSMN+f6J DBTL784h43iDILuxkbqU3fqPKW+dAbQG4X0wLAUrEm GITRZ25ELaM+xwip0uld8NdXES/i4TFbPNTarJm+hhsdFCPx+3/aSjCBq8sb3mwXpFpc9z1J/leUPUWR x900/q/I17WedBJ1bnMN9ZXUoDA2DQBrpDkjihmHNOes082iTyjFXtnGN1SsqTuGLmKLg0xAcmVR7Yix qY/ajducraPAnpYjxGzLKwjUBDJj7IogV+cfyXhwsm /3ORzAFlMi4zoyafXTAl602jpE7EadsleJb5jbGFV9JUuDmaDQAXLYD7YsYukp+X2VAOGofpFF7oBQK8 3Ol8aD9Usv5lmF3/KIO26Pu2dxWhO6r0vivlbKdomv5p45JrJ2i+xDXd24wfG6Eff5vDByOSnQC0tIvI 5Tdup/hqnQ5RcNZi/ZjT2P8PZCVDkwUECPVx/0fNAd Dntn/K9FIeFmXUZjBi+Azaw5XST+ozZWkEI7+XXaQQ9LF7TeQRcZjfD9AqdB2ZU8odHyE2eurrilqdaT uRWii5QryMJy4Rck9wOR3XJrTZTabjVJIOjLOp6etiUWtT3ypK0enxKYrx3U010e9hTFilgSCCcK3bts qEvKho4vEDDM8ObJT4dVfSI9c+1FIBSLop1IukPg+n A+TglCaf1Ec0JFUhATCA9IEZ8cTkJVymhRIYV0ETXGnelbRl6lLkErjPfuHb5r2op9SXUe8z8Sq99lAL HQkUvOwP16HwMkmwWw4d+YXUQKFvwEfdKRE0QEKLaJlMr3Kls8IB6DCpICRYA+0KbtCnQGNHv9kb0/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 [file] AgICAgICAgICAgICAgICAgICAgICAgICAgICAgICAgICAgICAgICAgICAgICAgICAgICAgICAgICAgIC AgICAgICAgICAgICAgICAgICAgICAgICAgICAgICAgICANCiAgICAgICAgICAgICAgICAgICAgICAgIC AgICAgICAgICAgICAgICAgICAgICAgICAgICAgICAg ICAgICAgICAgICAgICAgICAgICAgICAgICAgICAgICAgICAgICAgICAgICANCiAgICAgICAgICAgICAg ICAgICAgICAgICAgICAgICAgICAgICAgICAgICAgICAgICAgICAgICAgICAgICAgICAgICAgICAgICAg ICAgICAgICAgICAgICAgICAgICAgICAgICANCiAgIC AgICAgICAgICAgICAgICAgICAgICAgICAgICAgICAgICAgICAgICAgICAgICAgICAgICAgICAgICAgIC AgICAgICAgICAgICAgICAgICAgICAgICAgICAgICAgICAgICANCiAgICAgICAgICAgICAgICAgICAgIC AgICAgICAgICAgICAgICAgICAgICAgICAgICAgICAg ICAgICAgICAgICAgICAgICAgICAgICAgICAgICAgICAgICAgICAgICAgICAgICANCiAgICAgICAgICAg ICAgICAgICAgICAgICAgICAgICAgICAgICAgICAgICAgICAgICAgICAgICAgICAgICAgICAgICAgICAg ICAgICAgICAgICAgICAgICAgICAgICAgICAgICANCi AgICAgICAgICAgICAgICAgICAgICAgICAgICAgICAgICAgICAgICAgICAgICAgICAgICAgICAgICAgIC AgICAgICAgICAgICAgICAgICAgICAgICAgICAgICAgICAgICAgICANCiAgICAgICAgICAgICAgICAgIC AgICAgICAgICAgICAgICAgICAgICAgICAgICAgICAg ICAgICAgICAgICAgICAgICAgICAgICAgICAgICAgICAgICAgICAgICAgICAgICAgICANCiAgICAgICAg ICAgICAgICAgICAgICAgICAgICAgICAgICAgICAgICAgICAgICAgICAgICAgICAgICAgICAgICAgICAg ICAgICAgICAgICAgICAgICAgICAgICAgICAgICAgIC ANCiAgICAgICAgICAgICAgICAgICAgICAgICAgICAgICAgICAgICAgICAgICAgICAgICAgICAgICAgIC AgICAgICAgICAgICAgICAgICAgICAgICAgICAgICAgICAgICAgICAgICANCjw/lRXvH8txhRSuqzD6S3 jgIj7NGy5HWT4nl1NrFLNhDZwmvbNkTkqZPfJqDELg XpcJPqh8YKetFW5DaKCeT8WsQ0KpXYitGM0VFDSdIVDisATpVZTnUBYwXbF5AHDoVJnmRW5SeORdJAvw GROeZAXvHyUkQPDbDCKrIZTnTMVdPCSPWF3GXmCzB8NoxR57TMVIWf2+YHsuacEeBvlMIdHxXQSwf2Zu OAf7EJ8IYVYzKosjs7HkTaOuUALKXSphUI3AVZG9YO KbSLCmUb1PNRHcN203llIyLU5BAu8RBfIiTE8oui2GMkJkIEMfHvjCBil1PLksMC5FnLHzEBhDyc7eri JhxtGOa5TgaoMbkHWQg75jbKrkwrKIEIHnnctzcstvUNPlMFMtMj6jSr3nZHRoVMEnMbWeVIXGTC7PIH StXLNkbKQpWAArLDNRFB3EHVkdUIY8ZEKgouApySOd RQfeQG2SVEHkgnOfUbDpCCMZZHa+Yb7CXR7wb9UiJKmnKwCfIR1fil5RFKnJIeBnA8W9xSBuJ6K3SWyd Xv5NCYBuKONmYozeHIMYTVemLP3SBQ5usrY2ZT7TpPUdIVHgXGXywDZsYZv8W47piWDtCOvmDV9UNSD+ Harry+Xu3MYLIaOMZoHYYlQvDkHXGYLiYrQ8QbM1FCl0 TbN9CpTW35rHehagVdRUksIO2JQC3sXMYzXYZDZY1HnRIsuM9zyrCiGKDrZOFYStVcN36qbBJaESJyRU Z3UVSoLl3OUBPkZ2DihoWxtZndvkMbWDJoVEUVEW4YKRodvkOedMLohWurSO14dGuiKQ9KCx4JPnXfQG 6nwn1DeBYiZy7FRTItWf2OFNUzHNSfEZIuGPQ7XIRz LaRuWWxeWGIvVVEgNCG8SNYnDUXoLT3MCxKuMYLyUuQ9GnCsZHDqTZDotn6FMSSlHWJsFPUsMaTzIFKs SUSyWLxbBBJmAPQoNZT8UEYxRXBhFJ0VKiWiYFCcBRE8GVvtELQgSUVyed2EJHFxYOUaVxx2BeHhNFEb CDHkVCzdRTRhNZO7HCy9WCIgXUMjIA9GToMgHURrLZ sqOcmxYNKjRMEege3VUSFkVLZzTNC2BUMzPDAzKWDvYHuvSUJxVKW2CPL2QCPmGLTcJF3CTbPgVVNtMS R3CkiaUIUsUFQejc7SITDlQJRuMgO7GSSqKEBoZWOeGSpzRKIaGBEfAWI9ZPKtZNFbUZ4BXjUkGUXmLB LgTCHwWVUaIBOmto1CYPOrRGYjJoH3DOAdUKAuTCXn SQlnGILmQJT2CWZsFQDvYWAtQX4DLyCwCONtASQ3JBWpMJAyUYWast9MJTHmSGSlJZpmZeKzVJMgGFDq UDxpJNAfNCM1IaYnCVKkFKPmTP4EIlIjTIVnYnV3HTxkQCMpBEObaq6ATEYlQIMxQvc7GoZlZPBrRKXv CTmlVIRuBMB8SOO1MZAdVZSuTY9OPdUoHDZmObojFQ EmISGqBWFzar9TGZNrXHTlZCUlLnEhSWRvYBBvLNewALGhAMT6VpE1TPFfCWLoCJ1IGuCiDBIeNit9SE NiBJIwGHJqan0LAAHmNKVqJOnrGCYdOQCsTAWcZQqlRJSdQYFvImVzVQWpWQClXC5GKeTnUADlWtEoTR erBLBiKGSxtr9HUQCwIELiSBY8OVVmLJDnAQPoNXtu UPPvLEZ6EmR8EIInCWUgIM9WKmYfFPYuYwJ0HmrjMVAcRYPbyd7EnIAokXmpoi8TRLdCHj3NyQhaCZWi EOwjVg5hcNWyQuHtEXLNIr9LhmOeQNQkYGFFYIuoUQKnOUFrXhYvCLJnQNG3KCHdO7NeSiQeELJrMQQc KGY8RbF1OzA9XNAxBUOdSEZnHZV9ISK6JdF3BeSuEm D2AnBgVWVmIjG+AH0wXGm+Wt7Qd2FgfsB5vbAiUAjmQSGqKU0CVFZEY1BIJk== ID Date Data Source [id number] 07/28/2019 08:29:42 PM EST [facility] Name Value Range Interpretation Code Description Data Chhaya rce(s) Supporting Document(s) ED Provider Note [facility] NIBIUs4yGqZOWkSu67/DPKelMRZqa5HnKCpaJCc5JBsoWMMqK2SzOVT6yS1gJIN5WObJWgRyFoRtCeNy lbm [file] OTRiMjRjYzBjZDUyNmE+AD5iIUq+Hh0Ev0NblkM7goZsMYr7NRD3Ou9PCUFKK8GSIp== ID Date Data Source [id number] 07/24/2019 11:27:[address] [facility] CT MAXILLOFACIAL WITHOUT CONTRAST [id number] INAL RESULTInterpreted by:Sonia Rob MDINDICATION: 39-year-old male with recent multiple mandibular fractures status post ORIF now with new trauma.TECHNIQUE: Multidetector axial CT images were obtained through the bones of the face and displayed with bone and soft tissue algorithms, without intravenous contrast. Coronal and sagittal reformatted images were obtained from the axial slices. Automated dose lowering techniques and/or adjustment according to patient size were utilized for this exam.COMPARISON: CT maxillofacial dated 06/26/2019.FI NDINGS: There has been interval ORIF of the previously seen right mandibular angle fracture and multiple midline mandible fractures by plate, screw, and cerclage wiring fixation. The fracture fragments appear to be in grossly anatomic alignment. The surgical hardware appears intact without evidence of fracture, loosening, or displacement. No new facial fractures are identified. The nasal bones are normal. The pterygoid plates and zygomatic arches are intact. The globes are normal and symmetric bilaterally. Orbital bacon are intact. Extraocular muscles are normal and symmetric. Redemonstration of prior resection of the medial wall of the right maxillary sinus. There is near complete opacification of the right maxillary sinus. There is partial opacification of the ethmoid air cells. The remaining paranasal sinuses are clear. Mastoid air cells are clear bilaterally. IMPRESSION: 1. No evidence of new facial bone fractures.2. Status post ORIF of previously seen right mandibular angle and multiple midline mandible fractures with surgical hardware apparently intact. Fracture fragments are in grossly anatomic alignment.This document has been electronically signed by Kapil Alberto MD on 07/24/2019 11:25 AM Name Value Range Interpretation Code Description Data Chhaya rce(s) Supporting Document(s) ID Date Data Source [id number] 07/24/2019 05:57:11 AM [facility] XR CHEST FRONTAL ONLY [id number] RESULTI nterpreted by:GT RoaROCEDMARISA INFORMATION: Exam: XR Chest, 1 View Exam date and time: 07/24/2019 5:49 AM Age: 39 years old Clinical indication: Other: Eval picc placment TECHNIQUE: Imaging protocol: XR of the chest Views: 1 view. COMPARISON: CR XR CHEST FRONTAL ONLY [id number] PORTABLE 06/28/2019 2:10 PM FINDINGS: Lungs: Unremarkable. No consolidation. Central vascular catheter tip resides at the upper superior vena cava upper right jamey.Pleural space: Unremarkable. No pleural effusion. No pneumothorax. Heart/Mediastinum: Unremarkable. No cardiomegaly. Bones/joints: Chronic fracture deformity left 3rd and 4th ribs. Chronic fracture deformity left 9th rib.IMPRESSION: No acute findings. THIS DOCUMENT HAS BEEN ELECTRONICALLY SIGNED BY LIZBETH HAGEN MDThis document has been electronically signed by Lizbeth Hagen DO on 07/24/2019 5:57 AM Name Value Range Interpretation Code Description Data Chhaya rce(s) Supporting Document(s) ID Date Data Source [id number] 07/17/2019 04:49:10 PM [facility] Name Value Range Interpretation Code Description Data Chhaya rce(s) Supporting Document(s) Progress Note [facility] FOIXTu5uNrIJSbQv58/MAExqYSBac4BgOVafMMm8YIjnORPsL9JoHES8cM6tZHW0OPsJEfUmYhXjVTSa lbm [file] DQo+Vk2Bl3XbtkO0zqIeKZntYDj7Id9ICISAC6VKCl== ID Date Data Source [id number] 07/14/2019 08:18:40 PM [facility] Name Value Range Interpretation Code Description Data Chhaya rce(s) Supporting Document(s) Leukocytes [#/volume] in Blood by Automated count 4.4 10*3/uL 4-10 [facility] Erythrocytes [#/volume] in Blood by Automated count 3.66 10*6/uL 4.6- 6.1 L [facility] Hemoglobin [Mass/volume] in Blood 13.0 g/dL 13.5-18 L [facility] Hematocrit [Volume Fraction] of Blood by Automated count 37.9 % 4 1-53 L [facility] Erythrocyte mean corpuscular volume [Entitic volume] b y Automated count 103.4 fL 80-96 H [facility] Erythrocyte mean corpuscular hemoglobin [Entitic mass] by Automated count 35.5 pg 27-33 H [facility] Erythrocyte mean corpuscular hemoglobin concentration [Mass/volume] by Automated count 34.3 g/dL 32.0-36.[facility] width [Ratio] by Automated count 13.9 % 11.5-14.5 [facility] Platelets [#/volume] in Blood by Automated count 257 10*3/uL 150-400 [facility] Differential cell count method - Blood [facility] Neutrophils/100 leukocytes in Blood by Automated count 48 % [facility] Lymphocytes/100 leukocytes in Blood by Automated count 37 % [facility] Monocytes/100 leukocytes in Blood by Automated count 11 % [facility] Eosinophils/100 leukocytes in Blood by Automated count 3 % [facility] Basophils/100 leukocytes in Blood by Automated count 1 % [facility] Neutrophils [#/volume] in Blood by Automated count 2.14 10*3/uL 1.8-7 .0 [facility] Lymphocytes [#/volume] in Blood by Automated count 1.62 10*3/uL 1.2-4 .0 [facility] Monocytes [#/volume] in Blood by Automated count 0.47 10*3/uL 0-0.8 [facility] Eosinophils [#/volume] in Blood by Automated count 0.12 10*3/uL 0-0.5 [facility] Basophils [#/volume] in Blood by Automated count 0.05 10*3/uL 0-0.2 [facility] Nucleated erythrocytes/100 leukocytes [Ratio] in Blood by Automated count 0 /100{WBCs} 0-0 [facility] ID Date Data Source [id number] 07/14/2019 08:26:26 PM [facility] Name Value Range Interpretation Code Description Data Chhaya rce(s) Supporting Document(s) C reactive protein [Mass/volume] in Serum or Plasma 1.2 mg/L <8.0 [facility] ID Date Data Source [id number] 07/14/2019 08:26:26 PM [facility] Name Value Range Interpretation Code Description Data Chhaya rce(s) Supporting Document(s) Albumin [Mass/volume] in Serum or Plasma by Bromocresol green (BCG) dye binding method 3.8 g/dL 3.5-5.2 [facility] Bilirubin.total [Mass/volume] in Serum or Plasma 0.3 mg/dL <1.2 [facility] Calcium [Mass/volume] in Serum or Plasma 9.1 mg/dL 8.6-10.0 [facility] Chloride [Moles/volume] in Serum or Plasma 102 mmol/L 98-107 [facility] Creatinine [Mass/volume] in Serum or Plasma 0.70 mg/dL 0.70-1.20 [facility] Glucose [Mass/volume] in Serum or Plasma 130 mg/dL 70-140 [facility] Alkaline phosphatase [Enzymatic activity/volume] in Serum or Plasma 85 U/L 40-129 [facility] Potassium [Moles/volume] in Serum or Plasma 4.4 mmol/L 3.4-5.1 [facility] Protein [Mass/volume] in Serum or Plasma 6.2 g/dL 6.4-8.3 L [facility] Sodium [Moles/volume] in Serum or Plasma 139 mmol/L 136-145 [facility] Aspartate aminotransferase [Enzymatic activity/volume] in Serum or Plasma 20 U/L <40 [facility] Urea nitrogen [Mass/volume] in Serum or Plasma 4 mg/dL 6-20 L [facility] Osmolality of Serum or Plasma by calculation 287 mosm/kg 275-300 [facility] Creatinine/Urea nitrogen [Mass Ratio] in Serum or Plasma 6 [facility] Bicarbonate [Moles/volume] in Serum 22 mmol/L 22-29 [facility] Alanine aminotransferase [Enzymatic activity/volume] in Seru m or Plasma 23 U/L <41 [facility] Anion gap 3 in Serum or Plasma 15 mmol/L 8-15 [facility] Albumin/Globulin [Mass Ratio] in Serum or Plasma 2.0 [facility] Glomerular filtration rate/1.73 sq M pre dicted among non-blacks [Volume Rate/Area] in Serum or Plasma by Creatinine-based formula (MDRD) >6 0 [facility] Glomerular filtration rate/1.73 sq M pre dicted among blacks [Volume Rate/Area] in Serum or Plasma by Creatinine-based formula (MDRD) >60 [facility] ID Date Data Source [id number] 07/14/2019 09:17:52 PM [facility] Name Value Range Interpretation Code Description Data Chhaya rce(s) Supporting Document(s) Erythrocyte sedimentation rate 9 mm/hr <15 [facility] ID Date Data Source [id number] 07/11/2019 12:47:37 PM [facility] Name Value Range Interpretation Code Description Data Chhaya rce(s) Supporting Document(s) Operative Note [facility] KUCSJa2rMtKRUtPe82/PVGpwCZFys5PeDXptHHh7SIqoGCYgF9HcWOR0wS4vHTS5PXaFTwIjKtYaHFK4 lbm [file] 0gDQo+Yk9Nf5RuksE3drFgNOohJCo2Ic2UJLDWF7VKVl== ID Date Data Source [id number] 07/09/2019 05:57:17 PM EST [facility] Name Value Range Interpretation Code Description Data Chhaya rce(s) Supporting Document(s) Discharge Summary [facility] HHCIXe9zInZSZfEv92/AEPqgJALwe6PrDFqsCZt1IUboGBLsB3TdUYU2zN9uIFU8NJaPXoYlNoObMFTi lbm [file] ICAgICAgICAgICAgICAgICAgICAgICAgICAgICAgICAgICAgICAgICAgICAgICAgICAgICAgICAgICAg RAQbTZUjIXYbRAOeMN5RQZWgCIYhIWYdBWSvFXXqEULzFGDtKHEwSCWtCSEtWSInVSDgWWRaUUDlICKb ICAgICAgICAgICAgICAgICAgICAgICAgICAgICAgIC BwMJXaZOCmUNZaBRIzFVEiKGTmMGHaCU7WVLLdZZVuZIWtEWHkJXEkLFTlBCCeKJTbYZEoQZAtRWJpVD AgICAgICAgICAgICAgICAgICAgICAgICAgICAgICAgICAgICAgICAgICAgICAgICAgICAgICAgICAgIC HyVVCyYM5IIDZmHKYlSDLdBOZrMHBaTKJmLBHrMYWn ICAgICAgICAgICAgICAgICAgICAgICAgICAgICAgICAgICAgICAgICAgICAgICAgICAgICAgICAgICAg YVThTKDxYXSkEHIcHEIdOI7UIEIxRMTkLCQrKHKnAYXmTUZoGBHpSKKrXMYnNTNwAFCpILUmJRCdVYKf ICAgICAgICAgICAgICAgICAgICAgICAgICAgICAgIC KfFMScGPVdUFLvDRSqGVDuBODiPDFzZURvUC1QDZKqKHLuFTPmYGVyXSUoRCAoFMOdNWBmDYUvAADoZV AgICAgICAgICAgICAgICAgICAgICAgICAgICAgICAgICAgICAgICAgICAgICAgICAgICAgICAgICAgIC CjLPAmRGRcHG2LXOTlQEJvDAFgVSRfYCDxVSHgUZAm ICAgICAgICAgICAgICAgICAgICAgICAgICAgICAgICAgICAgICAgICAgICAgICAgICAgICAgICAgICAg IFUiVNEoVATyUHLrRXHpZZOeFR0EYROlXCCtDWNeESXfJWDhDDMqCTVhIMHpHEIfTRWhDABtYOWpDASq ICAgICAgICAgICAgICAgICAgICAgICAgICAgICAgIC PhOVWgNWOfPPCyIQSsDEIrVNMoZVYoUJUqPXSbDG1TPRFsHHSwWDJtADAoDISfIKGlYBKjAYKtTZGsUF AgICAgICAgICAgICAgICAgICAgICAgICAgICAgICAgICAgICAgICAgICAgICAgICAgICAgICAgICAgIC EsGMIoGYLoXPBjQS4FIRUbPDRhYTYxYAFdUXBpSRIa ICAgICAgICAgICAgICAgICAgICAgICAgICAgICAgICAgICAgICAgICAgICAgICAgICAgICAgICAgICAg MSSpUEZtWKFtXYSkZONrFNPlEVCtEI8UFD57kBFya2F4BRCaQW8bbhp/Zc2TJZskqvYlmFDrCS5TCsAf FA5dzz4KTqIpWM4xmy4ZQGrJIlPzH9H8wVFcHAQeIZ FLQuYkV62eXIwuWr03ZFldXQRgGlJtBOu7Pe1TInViE7ikSYOeUmU6KKDnPvQ6WJLuBzY9QIKdFzNqRR zjUN0Wz6NpzKZzYKy+Dw0GOX7lr0AoQKyaLVIiRY0wxz5IBIsAMwJjG0XvlwP7AKSkUALvFz4DVZPuII YziYYcPfNsHMAVToHxG5DkrS14DPTBCe7+DQplbmRv RejWVzMfRDReb5YkQOf0AM0IRPRrJKb6lDTnIFtlK2iehphgCKJ4zY3hliqgWxtpD5NkU4NgFMBYxVuw DRBqREVdFV8yIO9nYMLbPFIbOnF6NMUHCR5GIATcRDDdkEAxEZYnVGAFXX7CLRqgLBI8SPIhmqJxlZKu GHcdNG2IUHYmoxQpRvBwVGFKGPh+Bi9LVZ0kq9EcWC bdGpEvOU7pji0XORcGYuJlN5F4rDVhC5S9CZmyOt4ORACcERMjBJaiBHEWSIqaXL7QOK9ekeH4SG1RzE TqBVInFXZcoFYuUPw2H77nkCEeLGjnXB1EIOV+Harry+Nq4NEDTbNXNlJQZwVwSvDYWHHmCeV6TwS5XUt9 HuS6XdHB40fZwvhzMuGUhuFR9ION8uXXSrOFHBLC0D mULtaJ5iubVgDWSyRGCYGaFlT59uyPMyZMRmTXQiOHXlUj7URQRtT9UelhPjnNiavoXvHTAsZUWXXM3I SOvoorQkpIUjtWviIP28yMumRH0LTr1HFbPbIL9deb4LfSDhOe0VFKKcKW5JUCNtANKrPNPhUUO6HGWg LlGbXDibMPGiCIXcJSR4UIJtANPyAU1FWeRdETHgHE QvRaZpVCHlZWYnmt9JQLQgTNEtUou4OFPcHGTrAAKgCEhnNIIfBFTaHIC8UQVzBJShVP3DDnNkNTEgGY R6MwGfCFGjHABjff5XKFTxJXObAhvaQeIfVSAqYOFwFVxxFBOwHHN1SxW1YDOnAAFoSY3CZqHcGKMdLL R6VhCqFRAiVDElox7XLGGtEHJgPuw1NQQbTBVkDCQx IMcwCZPtZBJ5HPX8ROCtMMTgDQ5SYfUiRPNkZCb6CTHgDXXaQDXjgz2RABZsUSIcYDIbRpJcYFIdTEEh INguAJZrNHT9Aue3OZWbPLXoRO9WNtZiHHXbPDYtDEApUEGpNQOgmf0BLOCjUGVfYAE8ZlGbASKeOZVt ESkgLBLqZJQoMtU4PMTnUDErBO8GUaTiSYPvNZD6LR BbYKPsRGUusb2JZSEaAZIjLQplIJEiTWJzVQNoAYpeBPOxHRPoWFb0ZFXvBWEjQK0NHuAhDWQmLMI1Au EuAZVsSIYrqr2YBYMaWDGxWcr3TXZeONFvQUAdTIobTZYlTLYfNHFrSFLrUSQcBR4BWlSkSCNzNCJbJT CjYXVsECFmpu1TvMLkzBzyfw4XKPaQPj7ShLzmEGV0 DRcyMm6juUJcWfVnXRLUDd1PuiZdZVXsJISOFDxlGKBoANM4OWJfRGQhMrAbQVLqESBmXULeUfL8UHE6 TtNvNaL2SoL9DGzqIHBmTZPhCwUfCaHbS8UfJPHjWsPuHUNjVnA3HWP+GT4wPOt+Cn9Jw4NqqrI4ciZt RIksPISlUQ4TMDARX9CTXp== ID Date Data Source [id number] 07/08/2019 07:33:[address] [facility] Name Value Range Interpretation Code Description Data Chhaya rce(s) Supporting Document(s) Leukocytes [#/volume] in Blood by Automated count 6.4 10*3/uL 4-10 [facility] Erythrocytes [#/volume] in Blood by Automated count 3.84 10*6/uL 4.6- 6.1 L [facility] Hemoglobin [Mass/volume] in Blood 13.6 g/dL 13.5-18 [facility] Hematocrit [Volume Fraction] of Blood by Automated count 39.6 % 4 1-53 L [facility] Erythrocyte mean corpuscular volume [Entitic volume] b y Automated count 103.2 fL 80-96 H [facility] Erythrocyte mean corpuscular hemoglobin [Entitic mass] by Automated count 35.3 pg 27-33 H [facility] Erythrocyte mean corpuscular hemoglobin concentration [Mass/volume] by Automated count 34.2 g/dL 32.0-36.0 [facility] distribution width [Ratio] by Automated count 13.3 % 11.5-14.5 [facility] Platelets [#/volume] in Blood by Automated count 292 10*3/uL 150-400 [facility] Differential cell count method - Blood [facility] Neutrophils/100 leukocytes in Blood by Automated count 53 % [facility] Lymphocytes/100 leukocytes in Blood by Automated count 32 % [facility] Monocytes/100 leukocytes in Blood by Automated count 13 % [facility] Eosinophils/100 leukocytes in Blood by Automated count 1 % [facility] Basophils/100 leukocytes in Blood by Automated count 1 % [facility] Neutrophils [#/volume] in Blood by Automated count 3.37 10*3/uL 1.8-7 .0 [facility] Lymphocytes [#/volume] in Blood by Automated count 2.03 10*3/uL 1.2-4 .0 [facility] Monocytes [#/volume] in Blood by Automated count 0.83 10*3/uL 0-0.8 H [facility] Eosinophils [#/volume] in Blood by Automated count 0.04 10*3/uL 0-0.5 [facility] Basophils [#/volume] in Blood by Automated count 0.09 10*3/uL 0-0.2 [facility] Nucleated erythrocytes/100 leukocytes [Ratio] in Blood by Automated count 0 /100{WBCs} 0-0 [facility] ID Date Data Source [id number] 07/08/2019 07:40:13 PM [facility] Name Value Range Interpretation Code Description Data Chhaya rce(s) Supporting Document(s) C reactive protein [Mass/volume] in Serum or Plasma 5.2 mg/L <8.0 [facility] ID Date Data Source [id number] 07/08/2019 07:40:13 PM [facility] Name Value Range Interpretation Code Description Data Chhaya rce(s) Supporting Document(s) Albumin [Mass/volume] in Serum or Plasma by Bromocresol green (BCG) dye binding method 3.9 g/dL 3.5-5.2 [facility] Bil[facility].total [Mass/volume] in Serum or Plasma 0.3 mg/dL <1.2 [facility] Calcium [Mass/volume] in Serum or Plasma 9.3 mg/dL 8.6-10.0 [facility] Chloride [Moles/volume] in Serum or Plasma 99 mmol/L 98-107 [facility] Creatinine [Mass/volume] in Serum or Plasma 0.58 mg/dL 0.70-1.20 L [facility] Glucose [Mass/volume] in Serum or Plasma 84 mg/dL 70-140 [facility] Alkaline phosphatase [Enzymatic activity/volume] in Serum or Plasma 103 U/L 40-129 [facility] Potassium [Moles/volume] in Serum or Plasma 4.3 mmol/L 3.4-5.1 [facility] Protein [Mass/volume] in Serum or Plasma 6.8 g/dL 6.4-8.3 [facility] Sodium [Moles/volume] in Serum or Plasma 137 mmol/L 136-145 [facility] Aspartate aminotransferase [Enzymatic activity/volume] in Serum or Plasma 23 U/L <40 [facility] Urea nitrogen [Mass/volume] in Serum or Plasma 5 mg/dL 6-20 L [facility] Osmolality of Serum or Plasma by calculation 280 mosm/kg 275-300 [facility] Creatinine/Urea nitrogen [Mass Ratio] in Serum or Plasma 8 [facility] Bicarbonate [Moles/volume] in Serum 23 mmol/L 22-29 [facility] Alanine aminotransferase [Enzymatic activity/volume] in Seru m or Plasma 28 U/L <41 [facility] Anion gap 3 in Serum or Plasma 15 mmol/L 8-15 [facility] Albumin/Globulin [Mass Ratio] in Serum or Plasma 1.0 [facility] Glomerular filtration rate/1.73 sq M pre dicted among non-blacks [Volume Rate/Area] in Serum or Plasma by Creatinine-based formula (MDRD) >6 0 [facility] Glomerular filtration rate/1.73 sq M pre dicted among blacks [Volume Rate/Area] in Serum or Plasma by Creatinine-based formula (MDRD) >60 [facility] ID Date Data Source [id number] 07/08/2019 08:38:19 PM [facility] Name Value Range Interpretation Code Description Data Chhaya rce(s) Supporting Document(s) Erythrocyte sedimentation rate 28 mm/hr <15 H [facility] ID Date Data Source [id number] 07/04/2019 04:25:36 PM [facility] Name Value Range Interpretation Code Description Data Chhaya rce(s) Supporting Document(s) Progress Note [facility] GMXLGq6iViDGNaPw55/VDOreMHWan1XhMFlxAPc6HLvvDVZdQ2UjKIN8eW6jANQ2WExFNxSsQjWqIJN1 [facility] [file] AgICAgICAgICAgICAgICAgICAgICAgICAgICAgICAgICAgICAgICAgICAgICAgICAgICANCiAgICAgIC AgICAgICAgICAgICAgICAgICAgICAgICAgICAgICAg ICAgICAgICAgICAgICAgICAgICAgICAgICAgICAgICAgICAgICAgICAgICAgICAgICAgICAgICAgICAg ICANCiAgICAgICAgICAgICAgICAgICAgICAgICAgICAgICAgICAgICAgICAgICAgICAgICAgICAgICAg ICAgICAgICAgICAgICAgICAgICAgICAgICAgICAgIC AgICAgICAgICAgICANCiAgICAgICAgICAgICAgICAgICAgICAgICAgICAgICAgICAgICAgICAgICAgIC AgICAgICAgICAgICAgICAgICAgICAgICAgICAgICAgICAgICAgICAgICAgICAgICAgICAgICANCiAgIC AgICAgICAgICAgICAgICAgICAgICAgICAgICAgICAg ICAgICAgICAgICAgICAgICAgICAgICAgICAgICAgICAgICAgICAgICAgICAgICAgICAgICAgICAgICAg ICAgICANCiAgICAgICAgICAgICAgICAgICAgICAgICAgICAgICAgICAgICAgICAgICAgICAgICAgICAg ICAgICAgICAgICAgICAgICAgICAgICAgICAgICAgIC AgICAgICAgICAgICAgICANCiAgICAgICAgICAgICAgICAgICAgICAgICAgICAgICAgICAgICAgICAgIC AgICAgICAgICAgICAgICAgICAgICAgICAgICAgICAgICAgICAgICAgICAgICAgICAgICAgICAgICANCi AgICAgICAgICAgICAgICAgICAgICAgICAgICAgICAg ICAgICAgICAgICAgICAgICAgICAgICAgICAgICAgICAgICAgICAgICAgICAgICAgICAgICAgICAgICAg ICAgICAgICANCiAgICAgICAgICAgICAgICAgICAgICAgICAgICAgICAgICAgICAgICAgICAgICAgICAg ICAgICAgICAgICAgICAgICAgICAgICAgICAgICAgIC AgICAgICAgICAgICAgICAgICANCiAgICAgICAgICAgICAgICAgICAgICAgICAgICAgICAgICAgICAgIC AgICAgICAgICAgICAgICAgICAgICAgICAgICAgICAgICAgICAgICAgICAgICAgICAgICAgICAgICAgIC ANCjw/gXHrP7xyjIAaifQ7K7nrZu8EKa6MIA2ds5Xw YAOuPFmvibJnIgnWAxOpTIRuIzlREgo0SRrwYX4TlCViX5VnG5CbTDxqAN0LKPTqPWXokOBvOTLrGJXn GiO3NKFhALdkMF7MgRTeYIzdLGZuJSXzCF9RVVEyF000cyBzVM1WMu8NGuCvTV1sxa7ZNBpsOLLcOjiX Yqr4VLdoIY7HxVTnhTTgOIPrXWZMMpAlE7ctp6KqXc CkXOWWFIomLI5Nq5IccYRmEVv+Gf1HQZ7ko4OmRUunWVJcGI0tbn9LOGfZDjQtY0MtyWmsGOQlc9byFC AdGD9weDOlILX1VPSeBSVnXmBUnIR2QUNwvpGdISjaETUbCVOdTQ9mEe5fXQTqARLyCqOoIUPCDH2VCT WtINKehCHnMYQwGGSGLP3UXEzmBQQ4JUXwpnZczTAr CYlqJA7TPUCpntJjRSdlKFJSRBt+Om5PVY0bl0AmKCmcXFYoRJ7keu7KBCxYVaAeS4R2yXVvY5H7EUby Zk1RWXOcVHUdPTfwCRTUTLteJF8RFU6wmzV2TD1FkNKlTXMdTTCsqEAmHQz0Q31yuZNyQAkhGK8RMAF+ Harry+Em9ZHBBrYRHhLNNsGpZwJQNNAqEeD2EoJ6LWv1 IwQ2KgBI32qAwajlFzRIuyCM2XVV2cVVHaDYDTFC9YbXOmuG3yqrPzEADbDBAKNiMbT58zgSTnSOOnTB K3FUWfMl3ZOEPmF5QpyoSlaRgjtoQtZPDnWPWMMF9XMKiheeBorGGqfOzcSG62kCgtHV9GCv6MLmMqUC 6pys9AxPPdQi2PHINeKq4MODRmNMZsJCHlERR4LGQq XmRjCEsvYVAgYESpMKT4BJTdIAQaHG2LIzVuRJYzIPpdBBRzSSYyQZDbix8HSWEeHWOeLKEqFvQyWZJi VSPvSAoaNMRaGKKyYJC2PYGhJNIsLI2COzQsSKDaVEQgSMGzOUGgPULsho7KTQCoLWZrJfYeYXJoIKFb AUMcIVgnYTXzBIOcWysiMCFrULOePH3FGvXnYPAeDV R7OhmaVEFxGUMjoy2DOWFbIWRtMja9CROtSXRlRKDxVYxjFMIhEOZ1QoY7VNLvDVTfSH0LUyUrFCQcUA R7MKyrFMYbTMTsek6DVDWfMQEsNLD7AaLbTCRiXKUbRHvlLAWpDLZ9NCKcTYXrRQAqTR3HPsPpTWCjUP P2EgluTLKhPFOxdf0UHOTwSWMkXjn4JdOyIRHcLLLf AFkhCXGyIFF4PoB8FYDfUYUwYN8FCmHlETWqFTwfJjLzRTQaRMOjwu7XSMWqCSLpGxc4KnJvXRVuVAVu DCyoZTNiBYS3PwGpMNOhPNRuBH3MXiXcTJOuXTsvGiViTKXpLNMseb4PHFSuYQMqOEWnWHIlXOTiIQTw QNj9miGytINoRXv7IB8NM2QxluUjGxHWAt6Oc529OZ JzACOcEr2NU9beJb5iSVNjRMFUKc2YFGn9Vcf5KKhaOHFuMPAmOJmcClRmYTLvDMZxCqDtYOC2OkV+ID ffVPg8XBMdBQAnHzKcDtVvPfN8NmUcSqYqBOUhRyv4IH9eOUKWAp6+EPbzqJHkxYkpAULWWgT4BrH9GH qtKDZLKq8L ID Date Data Source [id number] 07/02/2019 05:47:00 PM EST [facility] DR AILEEN ADAMS - [address] - NO FAX FAX TO [facility] [phone] AILEEN ADAMS - [address] - NO FAX FAX TO [facility] [phone] AILEEN ADAMS [address] - NO FAX FAX TO [facility] [phone] AILEEN ADAMS - [address] - NO FAX FAX TO [facility] [phone] Name Value Range Interpretation Code Description Data Chhaya rce(s) Supporting Document(s) SODIUM 139 MEQ/L 135-145 N [facility] POTASSIUM 4.2 MEQ/L 3.5-5.3 [facility] CHLORIDE 104 MEQ/L 94-110 [facility] CARBON DIOXIDE 27 MEQ/L 22-33 [facility] ANION GAP 12 5-16 N [facility] BLOOD UREA NITRO 7 MG/DL 7-25 N [facility] CREATININE 0.7 MG/DL 0.6-1.4 N [facility] GFR > 90.0 ML/MIN [facility] Stage G1 - Normal or high kidney functi on GFR normal is >=90 The MDRD GFR calculation is considered valid between the ages of 18 and 75 years only. The GFR is an estimate of the Glomerular Filtration Rate. It is considered accurate in evaluating patients with Chronic Kidney Disease,but may underestimate kidney function in Healthy Patients. BUN/CREAT RATIO 10 8-36 N [facility] GLUCOSE 109 MG/DL 70-100 H [facility] CA 9.3 MG/DL 8.7-10.5 N [facility] BILIRUBIN,TOTAL 0.4 MG/DL 0.1-1.3 N [facility] AST 57 U/L 5-40 H [facility] ALT 67 U/L 5-48 [facility] ALKALINE PHOSPHATASE 124 U/L 40-140 N [facility] alth TOTAL PROTEIN 6.6 G/DL 5.9-8.3 N [facility] ALBUMIN 4.1 G/DL 3.0-5.1 [facility] GLOBULIN 2.5 G/DL 1.5-3.5 N [facility] ALB/GLOB RATIO 1.6 G/DL 1.0-2.7 N [facility] ID Date Data Source [id number] 07/02/2019 05:57:00 PM EST [facility] DR AILEEN ADAMS - [address] - NO FAX FAX TO [facility] [phone] AILEEN ADAMS [address] - NO FAX FAX TO [facility] [phone] AILEEN ADAMS [address] - NO FAX FAX TO [facility] [phone] AILEEN ADAMS - [address] - NO FAX FAX TO [facility] [phone] Name Value Range Interpretation Code Description Data Chhaya rce(s) Supporting Document(s) WHITE BLOOD COUNT 7.22 10^3/uL 4.00-10.50 [facility] RED BLOOD COUNT 4.09 10^6/uL 4.30-5.80 [facility] HEMOGLOBIN 14.0 G/DL 13.0-17.5 N [facility] HEMATOCRIT 42.3 % 41.0-53.0 N [facility] MCV 103.4 FL 80.0-100.0 [facility] MCH 34.2 PG 27.0-34.0 [facility] MCHC 33.1 G/DL 32-36 N [facility] RDW 13.7 % 11.5-14.5 N [facility] PLATELET COUNT 233 10^3/uL 130-400 [facility] MPV 10.2 FL 8.7-13.2 N [facility] GRAN % (AUTO) 55.8 % 42.0-75.0 [facility] LYMPH % (AUTO) 25.2 % 20.0-51.0 [facility] MONO % (AUTO) 16.1 % 2.0-15.0 [facility] EOS % (AUTO) 1.9 % 0.0-11.0 [facility] BASO % (AUTO) 0.6 % 0.0-2.0 [facility] IG % (AUTO) 0.4 % 1.00-5.00 [facility] IG # (AUTO) 0.0 10^3/uL <0.5 [facility] GRAN # (AUTO) 4.03 10^3/uL 1.50-6.50 [facility] LYMPH # (AUTO) 1.8 k/uL 1.0-5.0 [facility] MONO # (AUTO) 1.16 k/uL 0.20-1.50 [facility] EOS # (AUTO) 0.14 10^3/uL 0.00-1.10 [facility] BASO # (AUTO) 0.04 10^3/uL 0.00-0.20 [facility] ID Date Data Source [id number] 07/02/2019 05:47:00 [address] [facility] [address] AILEEN Leo [address] - NO FAX FAX TO [facility] [phone] AILE[address] - NO FAX FAX TO [facility] [phone]LEEN Leo [address] - NO FAX FAX TO [facility] [phone] AILEEN Leo [address] - NO FAX FAX TO [facility] [phone] Name Value Range Interpretation Code Description Data Chhaya rce(s) Supporting Document(s) C-REACTIVE PROTEIN 23 MG/L 0.00-5.00 [facility] ID Date Data Source [id number] 07/02/2019 05:57:00 PM [facility] [address] AILEEN Leo [address] - NO FAX FAX TO [facility] [phone] AILEEN Leo [address] - NO FAX FAX TO [facility] [phone] I[address]EN [address] - NO FAX FAX TO [facility] [phone] AILEEN Leo [address] - NO FAX FAX TO [facility] [phone] Name Value Range Interpretation Code Description Data Chhaya rce(s) Supporting Document(s) SED RATE 37 mm/hr 0-15 [facility] ID Date Data Source [id number] 07/01/2019 10:36:26 AM [facility] Name Value Range Interpretation Code Description Data Chhaya rce(s) Supporting Document(s) Creatinine [Mass/volume] in Serum or Plasma 0.70 mg/dL 0.70-1.20 [facility] Glomerular filtration rate/1.73 sq M pre dicted among non-blacks [Volume Rate/Area] in Serum or Plasma by Creatinine-based formula (MDRD) >6 0 [facility] Glomerular filtration rate/1.73 sq M pre dicted among blacks [Volume Rate/Area] in Serum or Plasma by Creatinine-based formula (MDRD) >60 [facility] ID Date Data Source [id number] 06/30/2019 12:59:16 PM [facility] Name Value Range Interpretation Code Description Data Chhaya rce(s) Supporting Document(s) [facility] GSBPZr6jZvGDCuZo44/DRRpsZJWoz4GqNMtoTWx8RZsuUPQkR4NrDEV0eI9sFXI1DLdHFaEpBcTbIWBy lbm [file] [id number] ID Date Data Source [id number] 06/30/2019 09:32:37 AM [facility] XR MANDIBLE 4 OR MORE VIEWS [id number] R ESULTInterpreted by:GRAZYNA Shermanlinical indication: Status post ORIF mandible.5 views of the mandible were submitted for interpretation.Comparison: Maxillofacial CT dated 06/26/19Findings/impression: There has been internal fixation of the symphysis and angle of the right mandible. The fractures appear well aligned. Within the limitations of the study, the occlusal surfaces appear aligned.This document has been electronically signed by Ellie Westbrook MD on 06/30/2019 9:30 AM Name Value Range Interpretation Code Description Data Chhaya rce(s) Supporting Document(s) ID Date Data Source [id number] 06/30/2019 07:12:35 AM [facility] Name Value Range Interpretation Code Description Data Chhaya rce(s) Supporting Document(s) Vancomycin [Mass/volume] in Serum or Plasma --trough 10.1 ug/mL 10.0- 20.0 [facility] ID Date Data Source [id number] 06/29/2019 12:27:47 PM [facility] Name Value Range Interpretation Code Description Data Chhaya rce(s) Supporting Document(s) [facility] FQTIZh7hLlPUXaEj73/OOVdeYQLyp7FhXHlfNKg6GJjiYGBlU0TyGPY6dG6bSDY0FWsYIaSsEyXnQRFm lbm [file] +six color press operator+GO7huqxNN5+VxXI7RPuXKq/Fcxg5E9hGgAwgSjSMLzmFwRGnY9AjN+BkHdh/2k93RtDEerYA1dc [file] piNKuEEpnKJbhW/6DN5Gv9n4RenmFameD3pAdIl [file] AgICAgICAgICAgICAgICAgICAgICAgICAgICAgICAgICAgICAgICAgICAgICAgICAgICAgICAgICAgIC AgICAgICAgICAgICAgICAgICAgICAgICAgICAgDQogICAgICAgICAgICAgICAgICAgICAgICAgICAgIC AgICAgICAgICAgICAgICAgICAgICAgICAgICAgICAg ICAgICAgICAgICAgICAgICAgICAgICAgICAgICAgICAgICAgICAgDQogICAgICAgICAgICAgICAgICAg ICAgICAgICAgICAgICAgICAgICAgICAgICAgICAgICAgICAgICAgICAgICAgICAgICAgICAgICAgICAg ICAgICAgICAgICAgICAgICAgICAgDQogICAgICAgIC AgICAgICAgICAgICAgICAgICAgICAgICAgICAgICAgICAgICAgICAgICAgICAgICAgICAgICAgICAgIC AgICAgICAgICAgICAgICAgICAgICAgICAgICAgICAgDQogICAgICAgICAgICAgICAgICAgICAgICAgIC AgICAgICAgICAgICAgICAgICAgICAgICAgICAgICAg ICAgICAgICAgICAgICAgICAgICAgICAgICAgICAgICAgICAgICAgICAgDQogICAgICAgICAgICAgICAg ICAgICAgICAgICAgICAgICAgICAgICAgICAgICAgICAgICAgICAgICAgICAgICAgICAgICAgICAgICAg ICAgICAgICAgICAgICAgICAgICAgICAgDQogICAgIC AgICAgICAgICAgICAgICAgICAgICAgICAgICAgICAgICAgICAgICAgICAgICAgICAgICAgICAgICAgIC AgICAgICAgICAgICAgICAgICAgICAgICAgICAgICAgICAgDQogICAgICAgICAgICAgICAgICAgICAgIC AgICAgICAgICAgICAgICAgICAgICAgICAgICAgICAg ICAgICAgICAgICAgICAgICAgICAgICAgICAgICAgICAgICAgICAgICAgICAgDQogICAgICAgICAgICAg ICAgICAgICAgICAgICAgICAgICAgICAgICAgICAgICAgICAgICAgICAgICAgICAgICAgICAgICAgICAg ICAgICAgICAgICAgICAgICAgICAgICAgICAgDQogIC AgICAgICAgICAgICAgICAgICAgICAgICAgICAgICAgICAgICAgICAgICAgICAgICAgICAgICAgICAgIC FyCOIyAJOtDAZsPQDzAJDqHCJwYJVqVRYdWRYrOTHiQBRwZSFuEDy8J9umHVEmWFPyIS1yJXd4Uz2+DQ zERpEsKBI2baSbgY6FTD4ju5PfKYviDNDqa3BiCLt6 IZ7VFRNqYQizXA1CHJifap7BFYNeJSPoySSMr3giRbUiXAW4JTAzZrvbHH5BPSIgX8zydpNvILAyGVUZ CZqcBWZEIJffWKTBGZLgRTLhGoWjSlLtWIRjGGUvSPFHJOA7FZEwGtNkNGroXI4Wk2MgaHE5QGw+Pg0K IE8ve7FeIGm8BAMjZL3gan1XYPaPVlTkL0OborM6RC HyNHOaPr3YTIQlIIDfpSH2UVZaTRZJKoWfB0IvnI72OGZBQl9+NKyxcjCvCttEJhImRVRbi8ZyWQr5JP 4XDHBtPNb8xDHmL94wp6FviHKrEmezRRBpxGinXEdgF0SwFDSvBWSMQXTSuVWqIUKsCL1gHV9kGQEaWP KdMsYvDGMKDS4ORZWaJQEihSBgIKPoWLVAZD6DIBhq MRR5GLYppaCqiZDqCBpcVK2TMGZdbsWbXJSvWISLQPd+Pe3JCO0oy9RtAVa3WyWdVJ3aja6EUIwKEcAn J7I4gXOvQ9I2DRfvOe0FDZUmTOHjMnqpYKYJTLocGB5TAE4eyqE2MY9OnIWgMNLpYQXqkJWwOOe4N13o sMNwYHhwJG0WBDS+Harry+Kx4LDMXrVVLsDUWmYeBmBS JBSfXfY1YsN9UWy4ZdY7SiJO82tGfesuDwCLetPO2GVY5hICJsMQGEXR0BsCMolY1ljrV8UUVlHLVXNr JjP98xxPZcEEClVUK2JXWaDg5BECWdJ9WdcwAzpJsptiJlVYLeMBFMND6YIKypmfEaqUUpqEgvAV16dS jeJL7MBa5GXzDpQN9add7HsJLuVk9JJWC8Pm7UDTFh MTCrEAXdQSI3KZEaZfNoKOcjLSQcQJPrVIQ8OHBcOYNxHQ5LUnFzEBCuXFM8NZRsQVZwAIDkst0XUVZi MSY6OjygBpRxOJOhCXJqAUusYVLtUYDjSGW6GLOvXNNvPA1KEbNuKYDdITA2VXUtCGPjEDJdtr3IXRDx PVYmTtxiNZIiVNCuCQLqBDfjYURgFVM5NHu8DANdQH LwUN7DWrGlZWMpCNqdBYCwVIMuSZTojw3BAJOeZHAiFMb7UzZgOMMbWSJjLRiqPHDbLEJkAWc0GGAnPE WlET2KDjWaGTVjEWQ8BzBrUGNkRWWqjg4AQELzFOHnJlY8QVQcQCPuRGHdSTihPGAzMIY9ICP1HWRdXY EdJK8YLbVfFERgTQA2GOKiFQVkDXNquo4VGMSrUWWb TSPbZxCaHJGiIKEoYZflCDZxSFM2DwWmJSPrOAVbMG7RDrVxCHJbZkO6PmNgTOWoTUTvsj1GYKIxGCKb AHh3YGMoGTMbSNNgWOaaLEPuCRAzTXN6TZDhQEBgAW9SNkYsJPBbJaNqYnOrCGZcTCMvuj0VLNSaWZIq TcUcHLBtAHJbSVYoECeqVVVcZEQ0DkE3QBFiVOUnQP 5GPbYyECOcAaA1DeFyRRDlINXbld7YVGCvSOHuIJM5GBApOMDhADFlPQyoHENuFWP6IgL8DEEyKXRxSH 2FJbOrSRVaIyY9SOYxUQTlBFEwog4LHOXuGBVqZNx0DWWhUPCtBCMfLEjwMYMaHZX3RshfZNOpSJFbGQ 8MMkChEFXjRzn4RCHxEYQmANRqvy0LLWZjWMTwCzhh DDEjNDEwVLJmTEsrJUEuDLE8WPE1EDYlKJNzGD3HGvXdMWAoLewaIPNgFMDrWZCyeo7VWWTfOBSfMTGn SIGrVIWrPNGoSVbyMLEnOEQ0UGY5WRDoMPLzZU2PLcKlHWRvEtk2QCLgHSAaNCVrkc5YEBAtZXT5BAL5 GYUdJPGgIUGtQNygMYGfAUHpUlNrCCJxAUShTP6GIw EdXJHcUFL5WdMfCWAcULGkwq9DZEKpNXA3HSP6LhCfQYUiTNYeBWwcYWUiOZWmSEWiGDOkKPVtQA1LRl OqFSEjUXY6TdJhAKZuITRylw6BTNKeBTF6HzV4GDFpEUUmCFBsVTm3ocKgkUMuYKa9FA4AP6OqjrFsFR GALw5Av446ZJSeOFCjWq2NH5bdJa3eTHIhJEUKCr3T PWa4XSB1QOZkWNY4OTIoAWO4HCT2ZRXbTXJjSYHhDhtvBXX+GUz1Mzg2DjSrWyyqXBV0PQT4GrT5P3Jl ZkX5AIT6QATbQx7qOSVQHw4+TYxmmSOvkHjySNLBEmXrDuI2LTcqQMZWFq7M ID Date Data Source [id number] 06/29/2019 07:33:55 AM EST [facility] Name Value Range Interpretation Code Description Data Chhaya rce(s) Supporting Document(s) Consultation [facility] WNJZVt2iXtCZXyNy56/SMFfjNRKwq6XlVTzsEPq3KDbeGRNmW8EuTDK6nS2gBFO7IXjLMcAqVaMvZNPw lbm [file] NeZ2RAgbETGNGf9V ID Date Data Source [id number] 06/28/2019 09:26:55 PM [facility] Name Value Range Interpretation Code Description Data Chhaya rce(s) Supporting Document(s) Folate [Mass/volume] in Serum or Plasma 7.88 ng/mL >4.77 [facility] ID Date Data Source [id number] 06/28/2019 08:51:36 PM [facility] Name Value Range Interpretation Code Description Data Chhaya rce(s) Supporting Document(s) Erythrocyte sedimentation rate 31 mm/hr <15 H [facility] ID Date Data Source [id number] 06/28/2019 09:28:10 PM [facility] Name Value Range Interpretation Code Description Data Chhaya rce(s) Supporting Document(s) Cobalamin (Vitamin B12) [Mass/volume] in Serum or Plasma 380 pg/ml 2 946 [facility] ID Date Data Source [id number] 06/28/2019 09:28:10 PM [facility] Name Value Range Interpretation Code Description Data Chhaya rce(s) Supporting Document(s) C reactive protein [Mass/volume] in Serum or Plasma 33.1 mg/L <8.0 H [facility] ID Date Data Source [id number] 06/28/2019 04:04:33 PM [facility] XR CHEST FRONTAL ONLY [id number] RESULTI nterpreted by:SUEJY CorreaROCEDURE INFORMATION: Exam: XR Chest, 1 View Exam date and time: 06/28/2019 2:42 PM Age: 39 years old Clinical indication: Fracture of unspecified part of body of right mandible, subsequent encounter for fracture with nonunion; Other: Eval aspiration, alcoholism TECHNIQUE: Imaging protocol: XR of the chest Views: 1 view. COMPARISON: No relevant prior studies available. FINDINGS: Lungs: Minimal bibasilar predominantly linear opacity, likely atelectasis or scar. No dense consolidation. Pleural space: Unremarkable. No pleural effusion. No pneumothorax. Heart/Mediastinum: Unremarkable. No cardiomegaly. Bones/joints: Unremarkable. IMPRESSION: Minimal bibasilar predominantly linear opacity, likely atelectasis or scar. No dense consolidation. THIS DOCUMENT HAS BEEN ELECTRONICALLY SIGNED BY DEBBI CANDELARIA MDThis document has been electronically signed by Debbi Candelaria MD on 06/28/2019 4:04 PM Name Value Range Interpretation Code Description Data Chhaya rce(s) Supporting Document(s) ID Date Data Source [id number] 06/28/2019 08:51:02 AM [facility] Name Value Range Interpretation Code Description Data Chhaya rce(s) Supporting Document(s) ED Provider Note [facility] XKSIAs1oUbVOJhMc60/EMBbyFPLdo3UdCKewXKg5BTpeCHXkT8EfILN9qB0sRVE0WEzTNlVhQcPjIBHv lbm [file] XSANCj4+WXevyOGnnWalCHCCRzu2TmAmHLiwXJXPTi3Q ID Date Data Source [id number] 08/22/2019 08:54:18 AM [facility] Service Cmnt XXX-Imp : ANTERIOR MANDIBLE Acid fast Stn XXX : No Acid fast bacilli seen on Fluorochrome stain.Microorganism XXX Cult : No growth (qualifier value) Name Value Range Interpretation Code Description Data Chhaya rce(s) Supporting Document(s) ID Date Data Source [id number] 07/25/2019 09:47:22 AM [facility] Service Cmnt XXX-Imp : ANTERIOR MANDIBLE Microorganism XXX Cult : No growth (qualifier value) Name Value Range Interpretation Code Description Data Chhaya rce(s) Supporting Document(s) ID Date Data Source [id number] 07/03/2019 11:22:13 AM [facility] Service Cmnt XXX-Imp : ANTERIOR MANDIBLE Microorganism XXX Cult : Three (3) colonies ofPropionibacterium acnes (organism) Name Value Range Interpretation Code Description Data Chhaya rce(s) Supporting Document(s) ID Date Data Source [id number] 07/02/2019 08:33:14 AM [facility] Service Cmnt XXX-Imp : ANTERIOR MANDIBLE Microorganism XXX Cult : 2Aggregatibacter aphrophilus (organism)Staphylococcus epidermidis (organism)No growth on solid media, growth from broth only.(NOTE)Called to and read back by Aaliyah Ray 06/29/19 at 10:35am by Name Value Range Interpretation Code Description Data Chhaya rce(s) Supporting Document(s) ID Date Data Source [id number] 08/22/2019 08:54:18 AM [facility] Service Cmnt XXX-Imp : R MANDIBLE SYMPHY SISAcid fast Stn XXX : No Acid fast bacilli seen on Fluorochrome stain.Microorganism XXX Cult : No growth (qualifier value) Name Value Range Interpretation Code Description Data Chhaya rce(s) Supporting Document(s) ID Date Data Source [id number] 07/25/2019 09:47:22 AM [facility] Service Cmnt XXX-Imp : R MANDIBLE SYMPHY SISMicroorganism XXX Cult : No growth (qualifier value) Name Value Range Interpretation Code Description Data [facility] rce(s) Supporting Document(s) ID Date Data Source [id number] 07/02/2019 11:51:26 AM [facility] Service Cmnt XXX-Imp : R MANDIBLE SYMPHY SISMicroorganism XXX Cult : No anaerobes isolated Name Value Range Interpretation Code Description Data [facility] rce(s) Supporting Document(s) ID Date Data Source [id number] 06/30/2019 11:17:18 AM [facility] Cmnt XXX-Imp : R MANDIBLE SYMPHY SISGram Stn XXX : No WBC's or organisms seen.Microorganism XXX Cult : One (1) colony ofAggregatibacter aphrophilus (organism) Name Value Range Interpretation Code [facility] ID Date Data Source [id number] 08/22/2019 08:54:18 AM [facility] Cmnt XXX-Imp : R MANDIBLE SYMPHY SISAcid fast Stn XXX : No Acid fast bacilli seen on Fluorochrome stain.Swabs are suboptimal specimens for the isolation of most microorganism due to the small amount of material that is absorbed onto and released from the swab. Tissue, fluids, and aspirates are the preferred specimens for detection of microorganisms.Microorganism XXX Cult : No growth (qualifier value) Name Value Range Interpretation Code Description Data [facility] rce(s) Supporting Document(s) ID Date Data Source [id number] 07/25/2019 09:47:22 AM [facility] Service Cmnt XXX-Imp : R MANDIBLE SYMPHY SISMicroorganism XXX Cult : No growth (qualifier value) Name Value Range Interpretation Code Description Data [facility] rce(s) Supporting Document(s) ID Date Data Source [id number] 07/01/2019 08:56:52 AM [facility] Service Cmnt XXX-Imp : R MANDIBLE SYMPHY SISGram Stn XXX : 3WBC'S Seen.No organisms seenMicroorganism XXX Cult : 2Aggregatibacter aphrophilus (organism)Two (2) colonies ofStaphylococcus epidermidis (organism) Name Value Range Interpretation Code Description Data Chhaya rce(s) Supporting Document(s) ID Date Data Source [id number] 07/02/2019 10:16:56 AM [facility] Service Cmnt XXX-Imp : R MANDIBLE SYMPHY SISMicroorganism XXX Cult : No anaerobes isolated Name Value Range Interpretation Code Description Data Chhaya rce(s) Supporting Document(s) ID Date Data Source [id number] 06/27/2019 02:18:05 PM [facility] Name Value Range Interpretation Code Description Data Chhaya rce(s) Supporting Document(s) [facility] XTZUKq3mOiMVZdBi81/UGRoiURZzw5NcVVcnTSr7DTwgYZChO8ClYOW7aB6uGII8DAzVVjOqZeSgONMk lbm [file] ICAgICAgICAgICAgICAgICAgICAgICAgICAgICAgICAgICAgICAgICAgICAgICAgICAgICAgICAgICAg ICAgICAgICAgICAgICAgICANCiAgICAgICAgICAgICAgICAgICAgICAgICAgICAgICAgICAgICAgICAg ICAgICAgICAgICAgICAgICAgICAgICAgICAgICAgIC AgICAgICAgICAgICAgICAgICAgICAgICAgICANCiAgICAgICAgICAgICAgICAgICAgICAgICAgICAgIC AgICAgICAgICAgICAgICAgICAgICAgICAgICAgICAgICAgICAgICAgICAgICAgICAgICAgICAgICAgIC AgICAgICAgICANCiAgICAgICAgICAgICAgICAgICAg ICAgICAgICAgICAgICAgICAgICAgICAgICAgICAgICAgICAgICAgICAgICAgICAgICAgICAgICAgICAg ICAgICAgICAgICAgICAgICAgICANCiAgICAgICAgICAgICAgICAgICAgICAgICAgICAgICAgICAgICAg ICAgICAgICAgICAgICAgICAgICAgICAgICAgICAgIC AgICAgICAgICAgICAgICAgICAgICAgICAgICAgICANCiAgICAgICAgICAgICAgICAgICAgICAgICAgIC AgICAgICAgICAgICAgICAgICAgICAgICAgICAgICAgICAgICAgICAgICAgICAgICAgICAgICAgICAgIC AgICAgICAgICAgICANCiAgICAgICAgICAgICAgICAg ICAgICAgICAgICAgICAgICAgICAgICAgICAgICAgICAgICAgICAgICAgICAgICAgICAgICAgICAgICAg ICAgICAgICAgICAgICAgICAgICAgICANCiAgICAgICAgICAgICAgICAgICAgICAgICAgICAgICAgICAg ICAgICAgICAgICAgICAgICAgICAgICAgICAgICAgIC AgICAgICAgICAgICAgICAgICAgICAgICAgICAgICAgICANCiAgICAgICAgICAgICAgICAgICAgICAgIC AgICAgICAgICAgICAgICAgICAgICAgICAgICAgICAgICAgICAgICAgICAgICAgICAgICAgICAgICAgIC AgICAgICAgICAgICAgICANCiAgICAgICAgICAgICAg ICAgICAgICAgICAgICAgICAgICAgICAgICAgICAgICAgICAgICAgICAgICAgICAgICAgICAgICAgICAg ICAgICAgICAgICAgICAgICAgICAgICAgICANCjw/wGMlP7qzzXXyicY8O2lrTl4TTf0POU1jm7CgVJIc FFhbtvNdYidJZpAaLLCtRbmCQlx8BEprGR6OgOLcP2 OjW3QjWJcyCA6EBVUbSBLyoKYvPFFdVDRoMwX1YINrPHvjHE2WdEBcAPxvMKDmQKLxLfQfWBGnZIJvEC WhLQQnUBCOUF2KNaMhD5VuaE34DPGTEr1+NXyomtTsYbmAWeZ3QMTxb4SaAXo6KP5AFPJeEaucj6BsZy oqRSRVZEbiBZ5IHZE6KOU3RKAwJf1BSJHkA493aqWy OR0YNy3HWgMoII1vui0QXvymMOKqGkrXMqh9NAnnYH5RkSVvJJnOj85bmVy5ywQerFYGyLUgOTZpE6Xr oWQbKSBuqpNgFD2RGAO4UDWfXQ9vSPKeUBC5MqE3AIVYBK0NYLRtJDLdzKQlCOQkFFTTRG5NSIyuXHG5 KSGmmaTjiZAcTTqeCR2DHXWgkcSyRbnxUVFACBi+Pg 3INH7rk8EeMZivCUIiGO0chk5BKLfALyUyL3T5oFFiN8O7SEfmTg2WWRDaOKUzYlXbYZBXWClaES9MEZ 9sluT0ZC6XgWEbYVHtUXPcvTTrGNr4O47fuNJpEVcdMX2MIMQ+Harry+Da0WFBMpSJUcIWKhWxOcSZZFAm KrS3IpG9SDs2UjT0PdXT60gJivgqNuWMbzYB0AKC6a NEPoKMDFHF8ByKPqoK3vaqDpMYPgMYYXPiMyH92bpVGkZNNsNJG3LYXeAz8LZCCdN4MdbiJgvUjddgTa FINzKXDVWM8OQYetdhMnpUUrpJhlDT84xLogUG0HJb7VRzWaPT6ere1ThATdVx3VWNWjKF2LERKdSMTg YPCqFUU4AJDoCeZrXWpgQVChEGNvSHD2WTBiANSbWW 9DMwBuSFLoScf6EBFpSUKiUDBxos9QBSKwJOHmGEHtFSBtZEIrGBOuCAcpBTFjTCCpCEE8BZGsXTAhON 7FGlGeRMNsUWU7LGOhVYDgTTVzuu2QESDpCZUxGvk4XVAjZURdOQXuTOriVBKlSRW9WYxmXIStGLVoTG 6KQnVjERLdUCGkKZOqRSNxHACbnr8VMLQxIPMcVFG2 WPKqFVCuEUVsCMngFAGvJVK8ZtmqZVBcCCHaVT6ZWyKbMOKaYGYgQkOmGKXnMSUpvy0ECQJzUCFbWtJ1 CvUkEMYiRKNhEHlcDORgZJCxAhV7TNPbJXCsTW8OViXjBJHrOMT0EtZvOHXpMXUfzi4NZKFoLGCnRdvp ZzOdMYAwBVQcVDhvMPHjKPU2Qux3EDLzQBSmSE6IXj ErBGLzNTS0VeenGCMlRRYgcl9HCRTnTLEbLBI8AqBbBMOnRVRuGXnfAAVpMNI9CHHcCEQqMNPxPK5PRu ZbEKOuOiL0FmvhKNLpWULckl1MPADxGZIpZwd6QKZaKPXwFYGgCJheFNRxLSB2KpG1FKUxVPYzOR7FZi SlRCNmLyyqZjUqFEZeHEEmsm7ZZYCxFTSzGKYqLoLb ZBAgISOaIGjdHUVyCKX0JQf1ZMAvOVXnBJ4NFiIjLMToDso8TfJyKPJnPZTsxx0ZHUPfFEHoOBI7PKBs ESUyGYPgRQprYJZyUJTnSYB0FNNtGAAeIN0RIyXbJXIiVvV4JDsnZQBwPWEoqg4HIEBnXHWtMJa4GEXe EULjRHKlJPk9ajVhoMDsJBf5WV2PM7YhgcTzIeISXt 3Lo859OACnECSxWw3KH9kuId1sJYEnNRULHs1ICVl5LSUgJkGgAKfbIyuuRmE2VJk8ApYuQCKgLDUpHm M5MzU+AHn0WqK4VnV3SYDxO0GdKWP2YGx0QdHlEuHzWWEaDinnSA1dAVPYQp1+DQpzdGFydHhyZWYNCj LhGAT6ISbuYKKQWt1D ID Date Data Source [id number] 06/27/2019 10:28:[address] [facility] Name Value Range Interpretation Code Description Data Chhaya rce(s) Supporting Document(s) Consultation [facility] XNVYQw8qMjZJMwEs17/GEXtoDDSsi9JmPIgnRIi0WIicBOIpJ2SqZLZ9yZ2nUSN4NQeFGcTqBpFuWIXs lbm ZnWrhGJgAvAZDdCbsKCfMcYExuIfouyGNxRE9OfYZ8ZRPnP82nLMJqMIOnT8CwDPS2UdU+Dc9QQCBfrK KrGF7FRivT3R8ww9vEGd7+sW3D5h19lDQyv2/13bxfosrVWsIbnXD8LfP2dvzJjhfyqveq7/a1I0a5ZF a9scGGBYiF7JO6PpMcja8sefuzjylB2q//BYdJFIZh WCeqKcLHLBk0iE//EtSnMVqdVn/GZfCL2PFHo/OMAR/ZFp0vu2CPOF71ECdm8IADcOh4H66iRHVnkOTMzm [file] [id number] ID Date Data Source [id number] 06/27/2019 07:02:18 AM EST [facility] Name Value Range Interpretation Code Description Data Chhaya rce(s) Supporting Document(s) Progress Note [facility] BCBGEw3kTpSUJtYq30/HNRkoSTJof2PtJJagUDg6TQhgYDCvH2WqOLX5bU0dXPY5QZyXJbOlAmAeIQXm lbm [file] MzU+CL3aQPj+Tf6An5OwctW3tkAdJJrqVQOaTi0EZQZTP4GYMq== ID Date Data Source [id number] 06/27/2019 05:47:[address] [facility] Name Value Range Interpretation Code Description Data Chhaya rce(s) Supporting Document(s) Progress Note [facility] XLKFVu1jFlPXVoEw59/EYQnrGNUba0CxTNbfCDx5BOtbMUNeQ6IsXMB3jY8kPTY7KKfOLpMiJyYdDOZk lbm VkWcfGYcZoDBZeWdeFNpZhFZjjAriqcKUcYE4VkIZ6NPAlP09zYKFmALCzS2DvBRV7JWR+Hc7ISHTclZ HgJF2VGctT3WraFomIEH5k7F2oLjCBNPfMnA+2TEJQwDdT18FCzMuIN3QxxKT8Hki/73o90kX7QQ9OHX PQJg/154ng36j8gSxLkpi/f7Sp2XBQ9ez/5mOcSnYz Yz//lRtycHll2408RzJBlPTvItcxLkQ+SqH8cGnuiNhtjDcqK8cziDZvzTuow0SX9D2z/sWEUnbFwqKE JqrQtERaV+wKYG0hGZAMqxpXRiz5DZKCgB77uBwPATweW7IpGzQgDbX5IcByDFXrhBhU1bfrbZicuyIu yy4tYgbJxgcaWEhGraWB8oBpQu5M3xFKT8MeHZeWUL seeLXINCrFfvdQPtZBq9opsPccO5TxUaRzhCIfYWfus8ZScUNhyujHnGYuk7yp85JyaZmIG7jH/xhDaR pRm+ZN5LRd0n9FF9ffKU/TXW1U3VObFoyK6Q1lpYfX52pFE7CyFrIah4TcpEaocQ4JwJ23VjpHqySsXu tDhlrJIdX/oC0ikTSuiV6zFQ0K/xLAT40659p4jveH O48pWMgBub4IxwWhtDitls5FAP+ixauZm3cJQX5J8rpnH+IuLX9QNwj2BiReWFYWGkXyHuJs+IENhsE5 eXGXcm9nDmWB73HfLcyV8PtlbSpvHb8A0TaLjoGR51M72vhbRdoPUGQQe91MRtpqlrosqeI6B2XjiYZp awWFpITlGe9P715R955LyRg6Kiy+wIo+fOV6vmuPbr ZAJ8hmXwVPOlSPJsVUIj8rgDqXvXXvYfXXW7+hzueofRt4TpZU57pZpp/utOqxqZtzbyIlq8TpGNjEp5 GsWOF0wCymOURGjl2fe/Howard+Kquha5skfcwkzH/SDW1+OmwwZX/fen/U/tBu9o9e8eaf+wsN1kOnoKfw [file] ICAgICAgICAgICAgICAgICAgICAgICAgICAgICAgIC AgICAgICAgICAgICAgICAgICAgICAgICAgICAgICAgICAgICAgICAgICAgICAgICAgICAgICAgICANCi AgICAgICAgICAgICAgICAgICAgICAgICAgICAgICAgICAgICAgICAgICAgICAgICAgICAgICAgICAgIC AgICAgICAgICAgICAgICAgICAgICAgICAgICAgICAg ICAgICAgICANCiAgICAgICAgICAgICAgICAgICAgICAgICAgICAgICAgICAgICAgICAgICAgICAgICAg ICAgICAgICAgICAgICAgICAgICAgICAgICAgICAgICAgICAgICAgICAgICAgICAgICANCiAgICAgICAg ICAgICAgICAgICAgICAgICAgICAgICAgICAgICAgIC AgICAgICAgICAgICAgICAgICAgICAgICAgICAgICAgICAgICAgICAgICAgICAgICAgICAgICAgICAgIC ANCiAgICAgICAgICAgICAgICAgICAgICAgICAgICAgICAgICAgICAgICAgICAgICAgICAgICAgICAgIC AgICAgICAgICAgICAgICAgICAgICAgICAgICAgICAg ICAgICAgICAgICANCiAgICAgICAgICAgICAgICAgICAgICAgICAgICAgICAgICAgICAgICAgICAgICAg ICAgICAgICAgICAgICAgICAgICAgICAgICAgICAgICAgICAgICAgICAgICAgICAgICAgICANCiAgICAg ICAgICAgICAgICAgICAgICAgICAgICAgICAgICAgIC AgICAgICAgICAgICAgICAgICAgICAgICAgICAgICAgICAgICAgICAgICAgICAgICAgICAgICAgICAgIC AgICANCiAgICAgICAgICAgICAgICAgICAgICAgICAgICAgICAgICAgICAgICAgICAgICAgICAgICAgIC AgICAgICAgICAgICAgICAgICAgICAgICAgICAgICAg ICAgICAgICAgICAgICANCiAgICAgICAgICAgICAgICAgICAgICAgICAgICAgICAgICAgICAgICAgICAg ICAgICAgICAgICAgICAgICAgICAgICAgICAgICAgICAgICAgICAgICAgICAgICAgICAgICAgICANCiAg ICAgICAgICAgICAgICAgICAgICAgICAgICAgICAgIC AgICAgICAgICAgICAgICAgICAgICAgICAgICAgICAgICAgICAgICAgICAgICAgICAgICAgICAgICAgIC AgICAgICANCjw/oWDtM2paoURpjtJ0D7jsGp3NBo8TMU6jk1NaVFBcLGhqgiZsUobCDqCbDCZoCwkLMs g9PJcdMB3DiGFpU3IbP0SxGQvmYA4UKEXzITThtRKs SEWzKOSrXjY4OSRyGYkoFX5FwVBxBQhzCZYnQKMpJH1RQINtJ075knOeFS3ZTj1KQpUxGC1mfj9ZDXWc TEKaXqiUDdl9AHtyMB0BoILkfJTiEBKjRQXZXlDcS7dyk0MpDLDzFZAUQUgpVQ3Do1DfpVMiEFl+Pg0K TZ1iq0BzEZojAGZkZE9rsc1CLGzTImVsZ3KjqExtBR Ykc5htNZFuVM9cfESfVEQ9ADRaxkStUFMXSK6lwBYmuxsnRg5tSKBiOI6wBY0cCRKcVTR3HfJjDUIESY 9LAKRvPKZdlXThIROpHVXDER3NRKibCLS6ASRaeqXrmIXkUPacRL0PPEAumxOjNXUbMDHNVVe+Pg0KZW 4vn8FmBUgeMnMyFF5jks7ZYJpADlZpM8W1mTIdB5A9 QPgbDv0KFJStOMXdPOUsCEQGNRblWD5ZOL9rdrJ1ZN0ZzANtHEExCWSpbFXrQSb7L53loIDlPFxgXU0N ICA+Harry+Cu7NXRJmCYCqZWIuAgWsUQVKTrSzJ7OsQ8AHf1IsM8GkZE66aRtacdGeNHccYO0CVE9uLBVu CBKOXO0OzNGccT6wfbImUDLtXKAYKoTzU16vmWNcDT WwKSMjEOLnZt7JBXXvX8WeveIefBpflqQsNXMgNYKVXX3MWLpwkxBxzPXbfUaxMD42zAevXM5XAy1ICy ZqLO7kwi2XxZXcFe6SSNNgKq0OTQHzQHYvSKAgVTQ9RCTdOgKhIOmzXEBvQOIzAAN4APKxQAHdJF7VIy LcJTJdLGH1KIIaYWYrQSEkug3XCPAlCNBdToAlCmFj BNLgTXPpVTzbXDBbYARyAXB6XPLpBMUbMP0RPtMeNSUcNCB7PNKsPODuBMHjiy4SGUWbLPEvSDi9AuGm YUQhZXVfUTonBTCpRUMeWHJ3PFAiTVVhFD1GEbShPXIfMXXgNXPyINPjICJrvx6RBDWiQFQoAjRiHTVc IXGnDXOpKVvuYACfAOT6JZd4YKJcOKPlRL4AIrPzZI JtOHOpYQHjEMNzVXOrci9ZYEPhXBThPPY2CSSsWYVoUQVkYIdyRGNaDKM0XAwnLHKlGVHlYT0TKlQtPK WgAMN9XrNyDTXtFVPxzb1ZTRZhPXScSaQ1GWLeIPVwNREcJDbkIPWkNNQ9WbNfZSBtHABiFH7ROpAyHT owYOGPWct4KWvtR3j2UMQrYd8YS1Hpt9KcBENmTEPT JZfnYO7ksnUmIOIqQa2ED4fWJojgHeIrJSXcMLD6VHOlCek7ZcG0NCEyZVozOaVuOnN6Ul8jHHSrHaA9 BNE2Lcv9NzV4NIEeXHZ5XvYsEJDzSCGnSqh0ZhAiGT5VNa2ZPlY0NEW7jZKqPy7IFoo1EM4LUGNVD4AM Cg== ID Date Data Source [id number] 06/27/2019 02:35:08 AM EST [facility] Name Value Range Interpretation Code Description Data Chhaya rce(s) Supporting Document(s) Progress Note [facility] ZCJJWv5sCtFABfLs63/PVZwfPYGih6VvTBxlHLf8MHbhQAEfL3FbOVF7oN9nUMA4DUiHEkJrAcSbKCLn lbm [file] REr2TAHDDmbLo/sports complex attendant/ibRjcDnMsWj6BDbMzxbTPFFfcC+8/pmYFGxHXqY4h9ZBH0suGWNobOJN4S42q8s [file] YzM+UX0mMUo+Vo6Gi9KxwnB1ygNcKYm1Tuj4PMnhAJCUVa8M ID Date Data Source [id number] 06/26/2019 01:15:07 PM [facility] Name Value Range Interpretation Code Description Data Chhaya rce(s) Supporting Document(s) Progress Note [facility] RZFIRm2kBiTDCwLf29/ONGsjFPRim2HrDBpkUJc4GDzuUJZvM6BjNYC5tR5lECT0PJwCCjJvTuUrPOS9 lbm [file] 2Wl4YzkiY4cqTwWDazQQW0ZJ8ZIIEML2LKSf== ID Date Data Source [id number] 06/26/2019 01:14:[address] [facility] Name Value Range Interpretation Code Description Data Chhaya rce(s) Supporting Document(s) Progress Note [facility] OJRUJf7gTiXLAjCg83/MAUruREFyq9FrXFkkEVh9MNhkBPDmR5RfWYH8uU1eTVS5HAbWLgHxNhPlBJA1 lbm [file] AgICAgICAgICAgICAgICAgICAgICAgICAgICAgICAgICAgICAgICAgICAgICAgICAgICAgICAgICAgIC AgICAgICAgICAgICAgICAgICAgICAgICAgICAgICAgICAgICAgDQogICAgICAgICAgICAgICAgICAgIC AgICAgICAgICAgICAgICAgICAgICAgICAgICAgICAg ICAgICAgICAgICAgICAgICAgICAgICAgICAgICAgICAgICAgICAgICAgICAgICAgDQogICAgICAgICAg ICAgICAgICAgICAgICAgICAgICAgICAgICAgICAgICAgICAgICAgICAgICAgICAgICAgICAgICAgICAg ICAgICAgICAgICAgICAgICAgICAgICAgICAgICAgDQ ogICAgICAgICAgICAgICAgICAgICAgICAgICAgICAgICAgICAgICAgICAgICAgICAgICAgICAgICAgIC AgICAgICAgICAgICAgICAgICAgICAgICAgICAgICAgICAgICAgICAgDQogICAgICAgICAgICAgICAgIC AgICAgICAgICAgICAgICAgICAgICAgICAgICAgICAg ICAgICAgICAgICAgICAgICAgICAgICAgICAgICAgICAgICAgICAgICAgICAgICAgICAgDQogICAgICAg ICAgICAgICAgICAgICAgICAgICAgICAgICAgICAgICAgICAgICAgICAgICAgICAgICAgICAgICAgICAg ICAgICAgICAgICAgICAgICAgICAgICAgICAgICAgIC AgDQogICAgICAgICAgICAgICAgICAgICAgICAgICAgICAgICAgICAgICAgICAgICAgICAgICAgICAgIC AgICAgICAgICAgICAgICAgICAgICAgICAgICAgICAgICAgICAgICAgICAgDQogICAgICAgICAgICAgIC AgICAgICAgICAgICAgICAgICAgICAgICAgICAgICAg ICAgICAgICAgICAgICAgICAgICAgICAgICAgICAgICAgICAgICAgICAgICAgICAgICAgICAgDQogICAg ICAgICAgICAgICAgICAgICAgICAgICAgICAgICAgICAgICAgICAgICAgICAgICAgICAgICAgICAgICAg ICAgICAgICAgICAgICAgICAgICAgICAgICAgICAgIC AgICAgDQogICAgICAgICAgICAgICAgICAgICAgICAgICAgICAgICAgICAgICAgICAgICAgICAgICAgIC SwODBqKHUpIAToDNKdOFSoTZCwMPMxSQJmKYSrQPYvXPYdVPNeWTNnQIJrXMFjNEd3E8xxNWMpKICyUA 8iMFg1Lw4+JWiRDvGvONY1dmLphE8BYT0hl9UlXIlf IBKbf6QgHRe1ZB9AZZAeAJdqYF9HSKrygt6QWSSuKMZgeARZm1nlFvCeIED4OZDjVoxtCN9TRFKhT6rn dvWpTVStLCYTVC2YZhUqD4SmyF91WFWWNp2+HGknejKxVihYNgU2KVBxe9KtQJh4WW8ZCKUaDkmdh1Dq StMrQEHDQMctSA7UMRZ2WXJiCNZdZp6XPFRbW604ti CgMQ0GGv0QYwScFC7aex3QBeUaOPZeFvxQHfq1AGanML3KdJZfCCzVqf9gxcHhglSBk3UiioJwnGLKzc jnLXTXbFY4y6VuzN78ANdaUoLOXBX7EZUvGY6lQTVrGEQpYgCuCHLTLJ5VKOHdKRRcsZXjCUUwKCWXNH 3FRHlvJLD0DTMpuqJuwHNhARpeCM2JOJSfxbDqJUan MCBSDQo+Bt6UVM4nu9GbMVilNUVpDI2reh3XJMjPFbDrC4G0sDWvL9K8KXfhNd1ZBVZsNBKlXYnySFKF XDzlVP7AZL4hzbY8WZ1TsMKgWPUoMIJqiYByZKz1O89rnNRqIYegDU9EPOD+Harry+Zj0SYWHqFLUfWBEn IuEbJECMKvUjG9GpJ2NJe5JnO4LtYN58vPqyczCfLI jePA0RUQ5fIJNzQWRXGQ5AwSOwfK0cweTdNUAtLRUIUwEzP28whCKaWMGePQJ4BNFgPh4HJIMkX7Gtns BbfQrjouWdRWHhMBDLTG2OPTyqlfOmjKAaxEdtJB76gEuvMJ8XRc2EUdRzTH4aqx4PsOJwHu3HDRRnHa 2MKZDtQEJtTOFbOVC0ZQApLyPrYPbdOKLxSIKnIUO6 ERGgSXUiAK0QKiDjUXJvMTdcQrjyTWOtUKXvyt4WGOSiCZLtRSw0QwPuEYGgAPWxHOtlSHUbNOMbDIN0 MMRnWAWrDS3XJjEuCDFjBQUhWiUzHRQySGAior2CEDYjVBBrAxC0HLInUHDxAFAfDLatPCWbZNZ7EwS0 IGQuQFLgSY0LVdUjKDRgUMD0AgLuNJJuZYYkyy1NSU VlFEXsRXJhJoCjMLJuBGBhPDwxBRKuBYA3ETyxHLHwPCHzUE5GDcKdHUMtZYV8KsRkIADzBYIvak7FTH RuNYIjAOq1BAPwCDScUNZcXHeaPZBjUHA2RwB9MYJxRQGnSF0PThBrUUAaNGe4BlQsZASjASSour7FAM UnJKUbLcg3DeYlCAVzILTqALniEINiXNC9YGFjFJWs HJCyUG6CHvJkZSQsJHhoNJhgYMVlTLGfbh8ECNQhBYEsKLP0FzUoRKBnIOOwIWxfORQcJWJvMQd2EENp AEUeHN2ZXnMoMVKqLpAjDfAwINJcINWnts7LGSCrXFCsINYhHYZxBZDuIIRmMMy1szTpwEQyLLq6GS5E F0FjswVuQmYLVt0Dz601SWHvRDCxLr7UE8uuQs8pRD SlHUCFGl7HICe7BoQ0LCDvZYI3VcLvHBJ0BpGwZWYrDeT9YojoORxjDVB+MAy7CMo4G0ZkApk2SIXcIK f7JZMxZSD3UkVqXZC9YHQ7Aa5nVXHBCz8+SSojcMAjpRlqIZBUSwImUKIeYZtmSKZDGc4B ID Date Data Source [id number] 06/26/2019 12:08:10 PM [facility] CT MAXILLOFACIAL WITH CONTRAST [id number] L RESULTInterpreted by:Pat Mathew MDCLINICAL INDICATION: 39-year-old male with open wound to mandible, history of mandibular fracture.TECHNIQUE: Axial CT images of the maxillofacial bones were obtained. Images were then reconstructed in the coronal plane using source data. There was no intravenous contrast administered. Automated dose lowering techniques and/or adjustment according to patient size were utilized for this examination.COMPARISON: CT Max face dated 05/27/2019FINDINGS:Redemonstration of a mildly displaced fracture of the right mandibular body extending towards the right mandibular angle, which is slightly more widened compared to prior examination.Multiple minimally displaced fractures involving the midline mandible. There is surrounding soft tissue edema. There is no mandibular subluxation or dislocation.No additional facial bone fractures identified. There is near complete opacification of the right maxillary sinus status post uncinectomy.IMPRESSION: Multiple minimally displaced fractures of the midline mandible that were not previously present. Redemonstration of fracture involving the right mandibular angle.This document has been electronically signed by Tom Mancia MD on 06/26/2019 12:05 PM Name Value Range Interpretation Code Description Data Chhaya rce(s) Supporting Document(s) ID Date Data Source [id number] 06/26/2019 11:55:22 AM [facility] Name Value Range Interpretation Code Description Data Chhaya rce(s) Supporting Document(s) [facility] ospital HZRNYo2hDnQAQeIwq9TiOeQaBVBbUZ1sxam0M9Z1mITvT1WauNZou9olL3UdN6FtGIPmBBNNBQ4RrILr jb2 [file] TlobF8ynJ31HCK2dtUKTVQ/c2enTXuW45SfbH359bZOUU2zTuanaySXvElYSyPQa+4n+vp human resources+op9k7hiAy e+CVe3JnA4q6j1LHu2edeDgFAa5wloFTwbtg3khHvK vTabgIZxIoEeHTYOBWHLzvMTChtcnM0KH0ugpg8JWbtqqqM5qoe37IA6P0kLoNYzazg2rJOOcp/4ysVl mztytQ1d1/G3rvxNALIqxD2/pEdkKZeQoucou7u/OI9h1B9G3zhUzg1+OfHMr7PBQ4Xokng/qEeKB4eG 7Lf431deDdXQt9UnSfeS+L+FTh+RrObzWNBpzmMX9a c50kI0Y348/XwjNgUye+lfQnBlX/nzrx/Vm+b6IxRl2YDcsq4wmwfJt8Vb54I9PGT/EPO8F7Cz2UA1Fh 6AzvISL5BS/yNCeaucp96/5OyEnNeFK4KE0UJxBXJrwYdEG7YWXJfQFc0DVQ87lWaFZGJz+HBgljMIVE OXFOSXlguGiOzo0M80IdhAErV+q1XmbVTZYqDYN9yS BtKAP7lQiO+3yvEBHhPW4dcCAExwGHiy83c/VAgZTZhdMpDW1SIXmv5BKnw7356ScgZkqb96J9GX+bBH ll33i+4PshoUYqnVgGNdKmRtpGgvdQ/UHRMCPR8F1TMDPJZdz0XuPeZBHqdAkD1Ln8nh7hBPvwxFCODR bO3ceklPIs3miotbGewKyrPL7dOiwlBNFhiKoXW1tA fPzWwjMnQJoBy7FklD+zjp5ceoR1oDUP2h3PCAgs28XJVhteuUVwit+UQda+11SQte+EAqpo55p6LJeR tSL35kgN49NxgfsuUg4UD4S4pSIrCrmxsP0dkf7WZys+Dz7wo16co5W386rmYQLAJGYtO2uZcXo9ibir gcDrZFnRNrycXoJMwvsp1lP1ckKhkOZu1rd7lKHl7t FTPG/M6ev12Yx+eZzjTLaACvAW0PyKJl3Iu6BKE0o8Cn61rwoaM1Q6ez8JhO8v3ntlcBMZOiUoAGvbN1 K5IjlNMEAJTIFWyA7B0po7u9icSNdx555pDlYLAlpjDY1T4g9ag7CKjZDMwUVJuRGSYIUuwCLMDQAFfj VHjWYdOXThoRsUTbRPotl4O+CMqATOlge6R+CMgTMG zhg4Y+HYdXZsFM7vgQnDQJbwj7IKmSKBsRGMFpPbIaPZJhUqNNTsADHrUSzMsBzLuQKyZ/NaFXgfKSJI GpyxYFO01juVA21RvEhmMs9TeGw4ZOBPpWPdXWw3ffYdx1UKosZfIP8Sv+wLpNnCRCumtbaoFjt9azwu 4YmUauLhpSX5GEK8rGlt1YfXr4slSY2Sq4a0WqOAhq dZZrRy17rbnpfANKQf1iIztEh9A5qCLzROK7vDAmnqPD0yuj1Od0ehGWNbbn2PuOHqwV24FKXZzQw42l qLWHVN7gsb6mc75S5XjOAawm07QEFe31D1MppJ3pPp42u4d5Mslm68eEI1mefGwUXc/ar1Ov7Kjk+ljE NO/mDW+4mWf/4c7x/MB/NNy08W5XwFbziiTEOocS3q riDPhdcgWSSLZJNsEHkeGiRCIiRKoiRGkjGQ/XLnIHDLagN98gj5bVwYAuysyYtica/imax9f/IDhFn7 GzpMtU7nKEPErbuxP515XZvStMhWldouVFicnI8AwE5/3brj7yJTnTr8ReINRIml3wvu0dEByhyq7S+7 XWnbpqe7gh6ig3//+r8g4eamUGyc0IvFP28iO+aRcq 0XZ3a1PHwgU5fk0fr1GBRE4zwE3aqakE4/pe+n/W9Wvt/39qvfqL9/wC/w6/GPbPttG/yG3w+sZ8Dv+P 1fx/+u1On/6/dtwz/hn/Av+Bf8G/59/Z9j/sji6h02q1Zkj7RxP01GL+E3+A3+Af+A3+F3+AP+gH/CP+ E//V2e7eM/VXt6+vu2r9+jP765ZM1FN+FX+A1+g3/A P+B3+B3+gD/gn/BP+Bf82d/Qu9e4KeUonJghxQ9/D7Nvug3P69+Tfhl5dcd//X3b8A/4B/wOv8N/+ptF tyT7T2rro+nv24Z/wX/8D4hgcU/u9vmisJ5/wC/wK/zor6O/th32sRqw2+6nn/5mhbKf/mbBtZ/+vm34 J/wT/oX1LKx/G6jrmrvL4cEV0g5GhtMvUED+ht3rQ+ S6Anp5DUNtK0+k/1vcMQ3v/q6sc/7o98jM+ylD/2un/2QiCizqu86wt02/P9dnT/+5Pr/t65/TUv548+ ejOk71+chcjt6MhL/tVD6xk4yk/Z8Gv+R805Qxf/j44R80Rz3sn7ew39ez/A04imlJ09iQa22eZ+N5Yj mu4z3PkE9zfv11gp+IbH/7yf3oyHPmL38+NDTk30dR 1YbI07cZ+Af8Dr/DH/AH1n/6+7bhX/Av+Df8+/r3c9e/T3+fU4D/UeN/l9GNqz7o97bX+BW/P/3N7yns 099qn/7Ko9UMP8V//j6L2iynf4l3vOtdv9MmW/6Gw1DUwCEc93iPle/EfDO0Zuzq6r71X/I6vrjbF4H7 3ywh/7FEXA91935/5tejSI1z79nz6QR7/3RWVmX/9X inOMq9N5+w7Ujm73/w2aIrH4qm0cWf8/2zHqm/oP5Z/5P+T38/O/tvlo3/9RRnUpawuCANulyWr8H9xf wt2HeI1cqCi+2P36tE/SS6gw6BK83yRNBzwgxQegml5PMg+gvdJ3U0DFHYvhs8VmEn+H8ZlhUN22/zRV MvzH82K/wT/gX/gn/Dv68/9dXbhl/gz/T69Bvyp2zw qm3wG/wD/gG/w4/+vm8DLKQ+qjb6m/ynwx4MG/qb+aqT9Ga5lr/e9o1/4gv9YmmcpiFr1eFlly/H13B8 VlpHuVaMneu7KwNCR8D/U1/VshPrWfAv+Zk70H7It2SuZKdxe9ws3HowK66GY/1NfZUxGVdvaOqrrBlN fVXtgD/gn/BP+Bf8C/4N/75+v/CEzh8jmxBb8Dg3Ft /CK3e9Vv4pZuy7/VS/+lnd4Q/47/yrqa/eNvwL/vXVP+pXP6tf/ywq80955DYNM+f9YPrv/kEu641cp1 GAizQnJzPr9Nkwkxht9MW76icy+nbOxl2jdlU4GJ3/U1/0z9o0jlRx5C51kfqf5dop+dbw5Lhtv/kt24 71Fmp//ZqisI0Q/tZs/60r/Z/+7qeKtB+0/c3p9NoD Od2stf1N48kxEg2hpDc9yH+u7wsBF99679huC/09+qriNu/8e4q03/v3ftKToT/bcuN/5MJc4CUi/R6j o6/y8S809H1Bk/XkKc1+e3TNBoX7um3wSTS8YF3g2Uy34nj6/4QB8rzmuyZ36BzqXi+9/4I940037/vB U439rv/kl8rj1SlhAiuK9erFLx238Wu8Df9WT+fvxv m70d+N83fj/N04f/c9f0/t9W1/91Nex97mevWf8Th0Nx4Z/5Cl8CoyT1gumzjw95glp40p5LMcR/Av+D s3H68c5oirL30OB+BX+BV+g9/gH/AP+B1+hz/gR3+MonCcsyc3M5e63KkD4IDfeb4gjhea4yh0CM7GEw diX5a5uiG+rt4u0l3x++wuUcx5lcVgygh6/f7mnr+m 6G/qq1r/dCVF3btKt/7mgkVsLRxId4M/z18zHF+7+mcQGp6y10NWgW88puB39Yya18KfN9EQoR75YfR3 hOv167pG/4T/rcpdYizl4rbkzb7lv6y1adPfCVytizCdIIETTSVjwwTHLf+5z6LGhXR+/l6/30ydxi65 6GNHm7n2+aj59wixl+3wO/xx93+au2piJjjSjlzXIx 2V1/9TGv3G+eirb/b5l01xgrA2/3yqom/0TytR1JQWO3/5SUP+ypC/sspfZdvhd/w+HrThn/BPrOfmr8 yvfja/9wvm9/4D8a6kFVk3tOPjM7s2x9cbmtpS21hz2Xf8G/aRakzg994DsM82Ad6913NmoegHsPvx8/ 731DxX/pEBBNb847z5/vYL52/qqxxLR1/u9U553/tZ pzvP/b0lujRbiy+zrp5y07qKHo/7/fpN3u/nbz73+lWE9rzbDJwdvvUupU+jngYR5k8EVy3G3v6+5gRO xpX67jwr/nvPvdUl0blm/kktcnmi7xnXs7sw0yiAvI4l30tc9Xc8E68qlD4R0b/yuGT+Pmwdrsb8R7a/ F+bf5fAH/AH/hB/P09Cx04V5eeL3lCV8Z20Z9Kw4h4 2b4k3047j3YP6aq8hrW6/3gB/29lLiR6H/Af+EH/3d6C/0laW+acggW14wcsc2BtjrUSN98gl2kml/jk fhV/gNfoN/AYclE6h8f8jKvsI0CiID8/e5tsThigaQdN/tBf+C/z4fHHg+IIS4wWVcprs1Kt707/Ar/D f/TKN7cOw/8s8KJzVB+P07L5+b4L425K/8fmI9E/4F /4J/w7+v/+irbxt+gV/g17s/R1/mawJpWb49jfC+fatG6Jjm/cNv2+F3+AP+gH/CP+Ff8C/4N/z7q09O 6ARB61eg+NsW+OLkY01L2C8/gxIMloD38K3fYCHAG88sPO4olHPCN822l/0cg8bg1LtbSxJA4r94/rvc Iemmw30Fm9akqebL0g/f0n/fj8LAfp44Jzzklql1eT +xmsd67Vk52h+yhvUY/AP+Ab/D7/AH/AH/hH9i/9ft10B/d90rMGq3AbF0+kuw7kaYg4uF09xntoB6P7 +QXmd19E+tgob5Tfzc9YM0EK0a10v68QKudRpqV32qWvwV+U5TudLwVF+F1vsXp96a4Bk/cWqH3/UHxn NgPGf+oqrXs8n/ikfr31iOn7B6n/cuGH3mj5Tmt+av 5tnQ51Kzex2he5G/4V/wL7/r3M/q5s4ngfLDDS3+Z2T+6m3Dr/Ar/Aa/wY/+JmzoMg1KE6rqjxzReNAs XN4Nt1sb+CJ/NZC/DkkwUqRhBfCWA8T/C/1d6G/mr/P5FhdibV7Rs4Q/5Mo2uei6z1Mqzh1p0Oyewko0 LbuoliBrHE57faNJC+AX+BV+hd/gx/YxPQ3ta2ce+G 12ofaFn681z5hm94G/wb/uOM/gwhkw4s6n59+t723DL/GXfv0xarm22Md12uQxCf+A3+F3rCe+++/PPb 7+6BfmIqgm54qjFh6al2dfhzjaK5OIZ8FJmNw8rX03Tm9qy5o8+mkZ50ga5vuxygu6lwapr/sp6K1r/q aacN62EH1WU3FfdZpvq815cxmxeYf0cQ6a4R+N/Ud/ U1+rSoT5Ju822JGSV+/780pOPl64hI4zQ389ZV539oedr/hv/xw42byoi/6L9z6EV4/leP/K8f6VZ/5q pj/fZzjtzF+9bfjv+chk783ZG2Zj6Sp8If3X/18yqZ11jtmUT/AH/BP+Cf+C/76f4/k93Bqe520z0/PB OpkJ8dmKBKxbjhbpniPo+P3Nb/v89zL47j+qVvaM56 yj/+ieih3OozsppgTpgraWTFe82YoK7/cq12sveetpeyflm05tr9Jznwjd6xm75JUp6/zFZ6EE4Xg1JW BQock5l/5jxqrSu39f6FpijBIjj1agesqmZR+i66tC61601Hof/go1BfXSdmy5/8qRv3K/97+e+uqp9j 0v/N4fud/7I/ebr3O/94Oe+edSU83Sdwbo7xfUg//r xU9foYzdAi1En1S/7/c97v2+v0Hv8Tr6Sn+Ef8K/1Qx4Gox++/it7PjfSisWk7Hx4Aa4Hz/Bj/5O9Hfe /IbPm9/weZ+n+UH4gb23qf4lE8/hc8G/4b/5HF83n+PrgV/gv/l2X/d5mS+F3+A3+Ui1Q64Q4+FHf/F8 0Bf6m/mrat/aYp4o8bNeU/4cz+f3G+Q63TN3q/7Z93 9x1jqnC6xl773n+uptwz/gH/A7/A5/3KCb2SF6k83R2074+026Qh756jnh9hlVQ9dh1ja6Cu/Ar1/9E8 /Vk/Hc+6A1ng2IK0Z/4Hf4/jrR80oCGdC9WrOf3+0WlSRvnicudkhc3HTK5mK+koIE3Zr7UhO/+uSUw5 JjOoSeyCfBMZhodBn4IXNu+sIExlwZ57/7pCX75j7W 4bduHGm9xmB2uu+byIV8XNh7uN7r4C/6aqb/6KtqL/gX/Bv+fcxp1XAy/+ge1o0W9D+dj8ygs66elwq0 lfmEU/Y75d1ue4nI2AwCh8AiZq3bhnDPcvI1thnhubXZ5gmN8VHzU416DkL+izRPIcOxU9N4ncLk0o+G 3fujsHt/FCbwK/hKB4qqfS6s/irHf+mo3ag8Pb/NT0 pnc716XkuA75cxw26g/gX/gn/Df5+UKW8rsQueE/xLx2Xo6Xb4Hv+Tj6Nu3Af6RZ/2H1Wlce4M2ZjSWn JQOoVRQ6UTS3b/Xy652VkHP3x/Ai345HbDN4e//n9qKO4j7jz/HJm/avwKm7V/4F/wb6z/1w5p9Z3Icl S8GwG10kdEaT8dopU4+Vs6N51W2+EP+AP+Cf/8zo8R b/3Rv1ma+t0k6ylycH+gaVxJK1R+8Av8Ar/Cr/Ab/Ab/gH/A7/CgkWA5qf9e7e4zU/wT/ns/GPPqyZhX W1n9uqSV1CJyRiiw+jxYyQVl9fqQncdX/QIgz4X4jrZI27/td2Ygj73pFm6xN/Pvuu+qFfas4lxl+auq rF61ph15ft6YtQ5ugcKE5W400oj+v099lpQsk0TbQ0 00m34tt9GPdF+dg5s30w8zis+ky8aefb25vQc8Dqqd1+++d04v01y57/Ep7Ct8FjtyBaliR665V0r4/2 pj66CW7kf+6Hzu+8Dzuc/942Zh893pgW/fB575/tXbhj/gv+8Dz3z/6m3Dv+Bf8G/47/3+lPs+8JQHfo Ff4M/5zbOsHfD0vb8+g/++7z3z/asq/ed5Kqm7pO9/ g3iHdid7jnO86u3cMB655Q4/icO338/v8898/7mNpvO5B975hjB3/YeJsU3dlRz8BHm0y9oRV/1CVnhm /UL+9yToRX7u5MyP3KFYaxUqXmArGiW/TJnsm08kMKwQhcLfWA132bzLW/xbQtl563cX/yi0MFPu//Nb FXkL5amUst7oKJ5yxl3J+FvH+M6H6CWmPAAA6fx1Fb sdELEofYHCAJGnzx4eQwto7IVKHlMAAjTbPqOZEEzNGGfFFkHOw9BQFXHpJNsKzOn9sEPssd7se4QAGU 2lxjddS7wQJWVDapXhNVLzC2Q/WNwzBmUESZBMkkmSMcg/DH8ZetC7vVdV57KRMeWMg1mDshlKr6UqIJ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
[2020-07-02] MEDS ORDERED: B-12100021 PO (13:44)
[2020-07-02] MEDS ORDERED: IBUP200C25 PO (13:44)
[2020-07-02] MEDS ORDERED: KETOROLAC 30 MG/ML 1ML VIAL IV ONE (14:30)
--- NOTE | 2020-07-02 15:11 | REP ---
INDICATION: fall injury COMPARISON: None. TECHNIQUE: Four views right wrist. FINDINGS: There is no evidence of acute fracture, dislocation, or intrinsic bone disease. IMPRESSION: No fracture or dislocation. <Electronically signed by Paul Roque > 07/02/20 [id number]
--- NOTE | 2020-07-02 15:13 | REP ---
INDICATION: fall injury. COMPARISON: None. TECHNIQUE: Five views lumbosacral spine. FINDINGS: There is no compression fracture. There is no malalignment. There is straightening of the normal lumbar lordosis. This could indicate muscle spasm. Tiny spurs are seen of L4 on L5. The disc spaces are relatively well preserved. The posterior elements are intact. IMPRESSION: No fracture or dislocation. Straightening of normal lumbar lordosis may indicate muscle spasm. <Electronically signed by Paul Roque > 07/02/20 [id number]
--- NOTE | 2020-07-02 15:23 | REP ---
INDICATION: fall. COMPARISON: None, prior frontal view of chest 01/26/2014 TECHNIQUE: Five views with frontal view of the chest FINDINGS: Multiple views of the right ribs show no acute fracture or osseous lesion. There is what appears to be a healed rib fracture involving the right 9th rib. The accompanying frontal view of the chest shows no cardiomegaly, infiltrates, effusions, pneumothoraces, or significant changes from the prior exam. IMPRESSION: Evidence of an old but age undetermined right 9th rib fracture. <Electronically signed by Jose D Cahpin > 07/02/20 [id number]
[2020-07-02] MEDS ORDERED: ISOVUE-370 76% 100ML VIAL As Ordered ONE (15:39)
[2020-07-02 15:43] LABS: BASO # 0.1 10^3/uL (0.0-0.2); BASO % 0.6 % (0.0-1.0); EOS # 0.2 10^3/uL (0.0-0.5); EOS % 1.9 % (0.0-3.0); HEMATOCRIT 44.1 % (42.0-52.0); HEMOGLOBIN 15.2 g/dl (13.5-17.5); LYMPH # 2.4 10^3/uL (1.5-5.0); MEAN CORPUSCULAR HEMOGLOBIN 34.4 pg (27.0-33.0); MEAN CORPUSCULAR HGB CONC 34.5 g/dl (32.0-36.5); MEAN CORPUSCULAR VOLUME 99.8 fl (80.0-96.0); MONO # 1.3 10^3/uL (0.0-0.8); MONO % 13.8 % (0.0-5.0); NEUTROPHILS # 5.6 10^3/uL (1.5-8.5); NEUTROPHILS % 58.3 % (36.0-66.0); PLATELET COUNT, AUTOMATED 163 10^3/uL (150-450); RED BLOOD COUNT 4.42 10^6/uL (4.30-6.10); WHITE BLOOD COUNT 9.6 10^3/uL (4.0-10.0)
--- OUTSIDE RECORDS SUMMARY | 2020-07-02 15:49 | CCD ---
Author Author [facility] Organization [facility] Address Unknown Phone Unavailable Care Team Providers Care Guest Services Name Role Phone Ella GUAMAN MD Unavailable [...] Unavailable Unavailable Ella GUAMAN MD Unavailable Unavailable Melo BYNUM . Unavailable Unavailable Melo BYNUM . Unavailable Unavailable Chelsie ECHAVARRIA MD Unavailable Unavailable Chelsie ECHAVARRIA MD Unavailable Unavailable Chelsie ECHAVARRIA MD Unavailable Unavailable Chelsie ECHAVARRIA MD Unavailable Unavailable Chelsie ECHAVARRIA MD Unavailable Unavailable Chelsie ECHAVARRIA MD Unavailable Unavailable Chelsie ECHAVARRIA MD Unavailable Unavailable Chelsie ECHAVARRIA MD Unavailable Unavailable Chelsie ECHAVARRIA MD Unavailable Unavailable JERICHO Chelsie CENTENO MD Unavailable Unavailable JERICHO, Chelsie CENTENO MD Unavailable Unavailable JERICHO, Chelsie CENTENO MD Unavailable Unavailable JERICHO, Chelsie CENTENO MD Unavailable Unavailable Richelle, L Cheri PRINCIPAL DATABASE DEVELOPER Unavailable Unavailable Richelle, L Cheri PRINCIPAL DATABASE DEVELOPER Unavailable Unavailable Richelle, L Cheri PRINCIPAL DATABASE DEVELOPER Unavailable Unavailable Richelle, L Cheri PRINCIPAL DATABASE DEVELOPER Unavailable Unavailable Richelle, L Cheri PRINCIPAL DATABASE DEVELOPER Unavailable Unavailable Richelle, L Cheri PRINCIPAL DATABASE DEVELOPER Unavailable Unavailable Richelle, L Cheri PRINCIPAL DATABASE DEVELOPER Unavailable Unavailable Richelle, L Cheri PRINCIPAL DATABASE DEVELOPER Unavailable Unavailable Richelle, L Cheri PRINCIPAL DATABASE DEVELOPER Unavailable Unavailable Richelle, L Cheri PRINCIPAL DATABASE DEVELOPER Unavailable Unavailable Richelle, L Cheri PRINCIPAL DATABASE DEVELOPER Unavailable Unavailable Richelle, L Cheri PRINCIPAL DATABASE DEVELOPER Unavailable Unavailable Richelle, L Cheri PRINCIPAL DATABASE DEVELOPER Unavailable Unavailable Richelle, L Cheri PRINCIPAL DATABASE DEVELOPER Unavailable Unavailable Richelle, L Cheri PRINCIPAL DATABASE DEVELOPER Unavailable Unavailable Richelle, L Cheri PRINCIPAL DATABASE DEVELOPER Unavailable Unavailable Richelle, L Cheri PRINCIPAL DATABASE DEVELOPER Unavailable Unavailable Richelle, L Cheri PRINCIPAL DATABASE DEVELOPER Unavailable Unavailable Richelle, L Cheri PRINCIPAL DATABASE DEVELOPER Unavailable Unavailable Richelle, L Cheri PRINCIPAL DATABASE DEVELOPER Unavailable Unavailable Richelle, L Cheri PRINCIPAL DATABASE DEVELOPER Unavailable Unavailable Richelle, L Cheri PRINCIPAL DATABASE DEVELOPER Unavailable Unavailable Richelle, L Cheri PRINCIPAL DATABASE DEVELOPER Unavailable Unavailable Richelle, L Cheri PRINCIPAL DATABASE DEVELOPER Unavailable Unavailable Richelle, L Cheri PRINCIPAL DATABASE DEVELOPER Unavailable Unavailable Richelle, L Cheri PRINCIPAL DATABASE DEVELOPER Unavailable Unavailable Richelle, L Cheri PRINCIPAL DATABASE DEVELOPER Unavailable Unavailable Richelle, L Cheri PRINCIPAL DATABASE DEVELOPER Unavailable Unavailable Richelle, L Cheri PRINCIPAL DATABASE DEVELOPER Unavailable Unavailable Richelle, L Cheri PRINCIPAL DATABASE DEVELOPER Unavailable Unavailable Richelle, L Cheri PRINCIPAL DATABASE DEVELOPER Unavailable Unavailable Richelle, L Cheri PRINCIPAL DATABASE DEVELOPER Unavailable Unavailable Richelle, L Cheri PRINCIPAL DATABASE DEVELOPER Unavailable Unavailable Richelle, L Cheri PRINCIPAL DATABASE DEVELOPER Unavailable Unavailable Richelle, L Cheri PRINCIPAL DATABASE DEVELOPER Unavailable Unavailable Richelle, L Cheri PRINCIPAL DATABASE DEVELOPER Unavailable Unavailable Richelle, L Cheri PRINCIPAL DATABASE DEVELOPER Unavailable Unavailable Santa Bolden MD Unavailable Unavailable Santa Bolden MD Unavailable Unavailable Santa Bolden MD Unavailable Unavailable Snata Bolden MD Unavailable Unavailable Santa Bolden MD [...] Unavailable Unavailable Rabbia, C Jessenia Unavailable Unavailable SuryaChelsie lo MD Unavailable Unavailable SuryaChelsie lo MD Unavailable Unavailable SuryadeChelsie robert MD Unavailable Unavailable SuryaChelsie lo MD Unavailable Unavailable SuryaChelsie lo MD Unavailable Unavailable SuryaChelsie lo MD Unavailable Unavailable SuryaChelsie lo MD Unavailable Unavailable SuryaChelsie lo MD Unavailable Unavailable SuryaChelsie lo MD Unavailable Unavailable SuryadeChelsie robert MD Unavailable Unavailable SuryadeChelsie robert MD Unavailable Unavailable SuryadeChelsie robert MD Unavailable Unavailable SuryadeChelsie robert MD Unavailable Unavailable SuryadeChelsie robert MD Unavailable Unavailable SuryadeChelsie robert MD Unavailable Unavailable SuryadeChelsie robert MD Unavailable Unavailable SuryaChelsie lo MD Unavailable Unavailable SuryaChelsie lo MD Unavailable Unavailable SurChelsie williamson MD Unavailable Unavailable SuryaChelsie lo MD Unavailable Unavailable SuryadeChelsie robert MD Unavailable Unavailable SuryadeChelsie robert MD Unavailable Unavailable SuryaChelsie lo MD Unavailable Unavailable SuryadeChelsie robert MD Unavailable Unavailable SuryaChelsie lo MD Unavailable Unavailable SuryaChelsie lo MD Unavailable Unavailable SuryaChelsie lo MD Unavailable Unavailable SuryaChelsie lo MD Unavailable Unavailable SuryaChelsie lo MD Unavailable Unavailable Chelsie Milan MD Unavailable Unavailable SurChelsie williamson MD Unavailable Unavailable Chelsie Milan MD Unavailable Unavailable SuryaChelsie lo MD Unavailable Unavailable Suryadevara, Chelsie Amcody SUAZO Unavailable Unavailable Suryadevara, Chelsie Amcody MD Unavailable Unavailable Suryadevara, Chelsie Amcody MD Unavailable Unavailable Suryadevara, Chelsie Amcody MD Unavailable Unavailable Suryadevara, Chelsie Amcody MD Unavailable Unavailable Suryadevara, Chelsie Amcody MD Unavailable Unavailable Suryadevara, C Amcody MD Unavailable Unavailable Suryadevara, Chelsie Amcody SUAZO Unavailable Unavailable Suryadevara, C Amcody MD Unavailable Unavailable Suryadevara, Chelsie Amcody MD Unavailable Unavailable Suryadevara, C Amcody MD Unavailable Unavailable Suryadevara, Chelsie Amcody SUAZO Unavailable Unavailable Suryadevara, C Amcody MD Unavailable Unavailable Suryadevara, Chelsie Amcody MD Unavailable Unavailable Suryadevara, C Amcody MD Unavailable Unavailable Suryadevara, C Amcody MD Unavailable Unavailable Suryadevara, C Amcody MD Unavailable Unavailable Suryadevara, Chelsie Amcody [...] Lisa MD Unavailable Unavailable Mcdermott, F Lisa SUAZO [...] Eranki, P Anabelle Unavailable Unavailable Eranki, P Anablele Unavailable Unavailable Eranki, P Anabelle Unavailable Unavailable [...] by Article 27-F of the [facility] Public Health law. If you continue you may have access to information: Regarding HIV / AIDS; Provided by facilities licensed or operated by the [facility] Office of Mental Health; or Provided by the [facility] Office for People With Developmental Disabilities. If such information is present, then the following [facility] mandated warning applies: This information [...] law may result in a fine or mcc sentence or both. A general authorization for the release of medical or other information is NOT sufficient authorization for further disc losure. Allergies and Adverse Reactions Type Description Substance Reaction Status Data Source(s ) DRUG INGREDI OLIVE OIL OLIVE OIL Rash [facility] ivory soap ivory soap [facility] Drug allergy bismuth subsalicylate bismuth subsalicylate [facility] Family History Family Member Name Family Member Gender Family Member Status Date o f Status Description Data Source(s) Unknown Condition [facility] Unknown Condition [facility] Unknown Condition [facility] Unknown Condition [facility] Encounters Encounter Providers Location Date Indications Data Source(s ) Outpatient Attender: Dale Milan MD 10/16/2019 12:00: [address] [facility] Emergency [id number] 08/26/2019 05:42 :00 PM EDT - 08/26/2019 09:38:00 PM EDT Emesis, Cough, r/o [place] Virus [facility] pital Emesis, Cough, r/o [place] Virus Patient discharged. Outpatient Attender: Dale Milan MD 08/21/2019 12:00: 00 AM [facility] Outpatient Attender: Anabelle ElliottReferrer: Dale guerra MD 08/13/2019 12:00:00 AM [facility] Outpatient Attender: JOCELIN Jamesonrer: Dale williamson MD 08/08/2019 12:00:00 AM [facility] Outpatient Attender: Dale Milan MD 07/31/2019 12:00: 00 AM [facility] Emergency [id number] 07/30/2019 08:13 :00 AM EST - 07/30/2019 11:31:00 AM EST Presence of other vascular implants and grafts [facility] Presence of other vascular implants and grafts Patient discharged. Outpatient Attender: JOCELIN Jamesonrer: Dale Milan MD [id number] 07/30/2019 12:00:00 AM EST - 07/30/2019 12:56:04 PM ES T Inflammatory conditions of jaws [facility] Inflammatory conditions of jaws Outpatient Attender: Cheri LAIeferrer: Dale stevenson MD 07/28/2019 12:00:00 AM [facility] Outpatient Attender: JOCELIN Jamesonrer: Dale williamson MD 07/25/2019 12:00:[address] [facility] Emergency 07/24/2019 07:57:00 AM EST - 07/24/2019 08:47:00 AM EST Pic Line issue [facility] Pic Line issue Patient discharged. Emergency Attender: JACOBO ECHAVARRIA MD [id number] 07/24/2019 04:36:00 AM EST - 07/24/2019 07:33:00 AM EST Encounter for other specified aftercare [facility] Encounter for other specified aftercare Patient discharged. Outpatient Referrer: Panfilo Morrow DO 07/22/2019 03:38:00 PM EST Inflammatory conditions of jaws [facility] Inflammatory conditions of jaws Outpatient Attender: Dale Milan MD [id number] 12:00:00 AM EST - 07/17/2019 04:07:01 PM EST Fracture of mandible of other specified site, subsequent encounter for fracture with nonunion [facility] Fracture of mandible of other specified site, subsequent encounter for fracture with nonunion Outpatient Attender: Dale Milan MD 07/17/2019 12:00: 00 AM [facility] Outpatient Attender: AILEEN ADAMS .Referrer: AILEEN ADAMS . 07/14/2019 12:00:00 AM EST Abscess of salivary gland [facility] Abscess of salivary gland Outpatient Attender: Dale Milan MDReferrer: Dale silva MD 07/08/2019 12:00:00 AM EST Abscess of [facility] gland [facility] Abscess of salivary gland Outpatient Attender: Dale Milan MD [id number] 12:00:00 AM EST - 07/03/2019 03:00:58 PM EST [facility] Outpatient Attender: Darren Sanchez MD 07/02/2019 12:00:00 AM EST Probation Manager [facility] Probation Manager Outpatient Attender: Dale Milan MDReferrer: Dale silva MD 06/28/2019 12:00:00 AM [facility] Inpatient Attender: Dale Bae DAttender: KARLY GUAMAN MDAdmitter: Dale Milan MDReferrer: Allan Luis [id number] 0 12:00:00 AM EST - 07/01/2019 12:00:00 AM EST Fracture of unspecified part of body of right mandible, subsequent encounter for fracture with nonunion [facility] Fracture of unspecified part of body of right mandible, subsequent encounter for fracture with nonunion Patient discharged. Emergency Attender: Mirna Hernandez MD 06/25 02:59:00 PM EST - 06/25/2019 03:35:00 PM EST [facility]mouth and jaw [facility]/mouth and jaw complaint Patient discharged. 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 [S02.601K] Patient discharged. Outpatient Attender: Jessenia MccrackenReferrer: Dale Milan MD 06/24/2019 12:00:00 AM [facility] pretest Outpatient Attender: Dale Milan MD [id number] 12:00:00 AM [facility] [place] - 06/19/2019 02:05:24 PM EST Fracture of unspecified part of body of right mandible, subsequent encounter for fracture with nonunion [facility] Fracture of unspecified part of body of right mandible, subsequent encounter for fracture with nonunion Emergency Attender: Lisa Mcdermott MD 06/08/20 03:45:00 PM EST - 06/08/2019 05:27:00 PM EST [facility]/Jaw injury Patient discharged. Outpatient Attender: Dale Milan MD 06/05/2019 12:00: 00 AM [facility] Outpatient Attender: Dale Milan MD 05/29/2019 12:00: 00 AM [facility] Emergency Attender: ROLANDO GARCIAAttender: Raffi kessler MD [id number] 05/27/2019 12:00:00 AM EST - 05/27/2019 05:14:00 PM EST Fracture of unspecified part of body of right mandible, initial encounter for closed fracture [facility] Fracture of unspecified part of body of right mandible, initial encounter for closed fracture Patient discharged. Medications Medication Brand Name Start Date Product Form Dose Route Admi nistrative Instructions Pharmacy Instructions Status Indications Reaction Description Data Source(s) Ibuprofen 200 MG Oral Capsule Ibuprofen 09/26/2019 12:00:00 AM EDT active [facility] ([facility]) Acetaminophen 325 MG Oral Tablet acetaminophen (TYLENO L) tablet 975 mg acetaminophen (TYLENOL) tablet 975 mg 07/30/2019 09:45:00 AM EST 97 5 mg Oral completed 975 mg, Oral, O nce, 07/30/19 at 0945, For 1 dose
Maximum daily dose of acetaminophen is 3,000 mg from all sources in [address]
[facility] Medication administered onsite Amoxicillin 875 MG / Clavulanate 125 MG Oral Tablet Amoxicillin-Pot Clavulanate 875-125 MG Oral Tablet Amoxicillin-Pot Clavulanate 875-125 MG Oral Tablet 07/30/2019 12:00:00 AM EST 1 {tbl} Oral active Take 1 tablet by mouth Two Times Daily for [address] [facility] Amoxicillin 875 MG / Clavulanate 125 MG Oral Tablet Amoxicillin-Pot Clavulanate 875-125 MG Oral Tablet Amoxicillin-Pot Clavulanate 875-125 MG Oral Tablet 07/30/2019 12:00:00 AM EST 1 {tbl} Oral active Take 1 tablet by mouth Two Times Daily [facility] chlorhexidine gluconate 1.2 MG/ML Mouthw venice chlorhexidine (PERIDEX) 0.12 % solution 15 mL chlorhexidine (PERIDEX) 0.12 % solution 15 mL 07/24/19 09:00:00 AM EST 15 mL Mouth/Throat aborted 15 mL, Mouth/Throat, 2 Times Daily, First dose on Yarelis 07/24/19 at 0900, For 30 days
Do not swallow.
[facility] Medication administered onsite Amoxicillin 875 MG / Clavulanate 125 MG Oral Tablet Amoxicillin-Pot Clavulanate 875-125 MG Oral Tablet Amoxicillin-Pot Clavulanate 875-125 MG Oral Tablet 07/24/2019 12:00:00 AM EST 1 {tbl} Oral active Take 1 tablet by mouth Two Times Daily 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 sodium chloride 0.9 % SOLN 50 mL with ertapenem 1 g SOLR 1,0 00 mg 07/02/2019 12:00:00 AM EST 1000 mg Intravenous active Inject 1,000 mg into the vein every 24 (twenty-four) hours [facility] 24 HR Nicotine 0.583 MG/HR Transdermal P atch Nicotine 14 MG/24HR Transdermal Patch 24 Hour (NICODERM CQ) Nicotine 14 MG/24HR Transdermal Patch 24 Hour (NICODERM CQ) 07/02/2019 12:00:00 AM EST 1 {patch} Transdermal active Place 1 patch onto the skin daily [facility] 1 ML heparin sodium, porcine 100 UNT/ML Injection Heparin Lock Flush 100 UNIT/ML Intravenous Solution Heparin Lock Flush 100 UNIT/ML Intravenous Solution 07/02/2019 12:00:00 AM EST 500 U Intracatheter aborted Encounter for long- term (current) use of antibioticsOsteomyelitis of mandible 5 mLs by Intracatheter route as needed (PRN for after IV infusion and as needed) [facility] Encounter for long-term (current) use of antibiotics Osteomyelitis of mandible Ertapenem Sodium 1 GM Intravenous Solution Reconstituted (IN VANZ) [id number] 07/02/2019 12:00:00 AM EST 1 g Intravenous a borted Encounter for long-term (current) use of antibioticsOsteomyelitis of mandible Inject 1 g into the vein every 24 (twenty-four) hours [facility] Encounter for long-term (current) use of antibiotics Osteomyelitis of mandible Sodium Chloride Flush 0.9 % Intravenous Solution [id number] 1 07/02/2019 12:00:00 AM EST 10 mL Intravenous aborted En counter for long-term (current) use of antibioticsOsteomyelitis of mandible Inject 10 mLs into the vein as needed (for before and after infusion and PRN) [facility] Encounter for long-term (current) use of antibiotics Osteomyelitis of mandible Vitamin B 12 0.1 MG Oral Tablet Cyanocobalamin 100 MCG Oral Tablet Cyanocobalamin 100 MCG Oral Tablet 07/02/2019 12:00:00 AM EST 100 ug Oral active Take 1 tablet by mouth daily [facility] Thiamine 100 MG Oral Tablet Thiamine HCl 100 MG Oral T ablet (B-1) Thiamine HCl 100 MG Oral Tablet (B-1) 07/02/2019 12:00:00 AM EST 100 mg Oral active Take 1 tablet by mouth daily [facility] ertapenem (INVANZ) 1,000 mg in sodium chloride 0.9 % 50 mL I VPB 07/01/2019 12:15:00 PM EST 1000 mg Intravenous completed 1,000 mg, Intravenous, Administer over 30 Minutes, Every 24 hours, First dose on Sun07/01/19 at 1215, For [address] [facility] Medication administered onsite Acetaminophen 500 MG Oral Tablet Acetaminophen 500 MG Oral Tablet (TYLENOL) Acetaminophen 500 MG Oral Tablet (TYLENOL) 07/01/2019 12:00:00 AM EST 500 mg Oral aborted Take 1 tablet by mouth every 4 (four) hours as needed for Pain [facility] chlorhexidine gluconate 1.2 MG/ML Mouthw venice Chlorhexidine Gluconate 0.12 % Mouth/Throat Solution (PERIDEX) Chlorhexidine Gluconate 0.12 % Mouth/Thr oat Solution (PERIDEX) 07/01/2019 12:00:00 AM EST 15 mL Mouth/Throat active Use as directed 15 mLs in the mouth or throat Three ti mes daily [facility] Folic Acid 1 MG Oral Tablet Folic Acid 1 MG Oral Table t (FOLVITE) Folic Acid 1 MG Oral Tablet (FOLVITE) 07/01/2019 12:00:00 AM EST 1 mg Oral active Take 1 tablet by mouth daily [facility] Tab-A-Florentino/Beta Carotene Oral Tablet [id number] 07/01/2019 12:00: 00 AM EST 1 {tbl} Oral active Take 1 tablet by mouth d aily [facility] Sodium Chloride (PF) 0.9 % Injection Solution [id number] 07/01/2019 12:00:00 AM EST 10 mL Intravenous aborted Inje ct 10 mLs into the vein every 12 (twelve) hours [facility] 1 ML heparin sodium, porcine 10 UNT/ML I njection Heparin Lock Flush 10 UNIT/ML Intravenous Solution Heparin Lock Flush 10 UNIT/ML Intravenous Solution 07/01/2019 12:00:00 AM EST 20 U Intravenous active Inject 2 mLs into the vein as needed [facility] Sodium Chloride (PF) 0.9 % Injection Solution [id number] 07/01/2019 12:00:00 AM EST 10 mL Intravenous aborted Inje ct 10 mLs into the vein as needed [facility] 1 ML heparin sodium, porcine 10 UNT/ML I njection Heparin Lock Flush 10 UNIT/ML Intravenous Solution Heparin Lock Flush 10 UNIT/ML Intravenous Solution 07/01/2019 12:00:00 AM EST 20 U Intravenous active Inject 2 mLs into the vein every 12 (twelve) hours [facility] vancomycin (VANCOCIN) 1750 mg in NaCl 0.9 % 500 mL (premix) [id number] 06/30/2019 03:00:00 PM EST 1750 mg Intravenous aborted 1,750 mg, Intravenous, Administer over 90 Minutes, Every 12 hours, First dose on Sun06/30/19 at 1500, For [address] [facility] Medication administered onsite vancomycin (VANCOCIN) infusion 1,500 mg/300 mL (premix) [id number] 4-043-06/29/2019 06:30:00 PM EST 1500 mg Intravenous aborted 1,500 mg, Intravenous, Administer over 90 Minutes, Every 12 hours, First dose (after last modification) on Sun06/29/19 at 1830, For [address] [facility] Medication administered onsite Ceftriaxone 2000 MG Injection cefTRIAXone (ROCEPHIN) I VPB (premix) 2 g cefTRIAXone (ROCEPHIN) IVPB (premix) 2 g 06/29/2019 02:30:00 PM EST 2 g Intravenous aborted 2 g, Intraven ous, at 100 mL/hr, Every 24 hours, First dose on Sun06/29/19 at 1430, For 5 days
Discouraged Uses: Empiric treatment of post-surgical meningitis (ceftazidime preferred)
[facility] Medication administered onsite Thiamine 100 MG Oral Tablet thiamine (B-1) tablet 100 mg thiamine (B-1) tablet 100 mg 06/29/2019 09:00:00 AM EST 100 mg Oral active 100 mg, Oral, Daily Standard, First dose on 06/29/19 at 0900, For [address] [facility] Medication administered onsite Folic Acid 1 MG Oral Tablet folic acid (FOLVITE) table t 1 mg folic acid (FOLVITE) tablet 1 mg 06/29/2019 09:00:00 AM EST 1 mg Oral active 1 mg, Oral, Daily Standard, First dose on 06/29/19 at 0900, For [address] [facility] Medication administered onsite 24 HR Nicotine 0.583 MG/HR Transdermal P atch nicotine (NICODERM CQ) 14 MG/24HR 1 patch nicotine (NICODERM CQ) 14 MG/24HR 1 patch 06/29/2019 09:00:00 AM EST 1 {patch} Transdermal active 1 patch, Transdermal, Administer over 24 Hours, Daily Standard, First dose on 06/29/19 at 0900, For [address] [facility] Medication administered onsite multivitamin tablet 1 tablet [id number] 06/29/2019 09:00:00 AM EST 1 {tbl} Oral active 1 tablet, Oral , Daily Standard, First dose on 06/29/19 at 0900, For [address] [facility] Medication administered onsite sodium chloride (preservative [...] C-34 Central Line Policy.
[Order 4 End] [facility] Medication administered onsite lidocaine (XYLOCAINE) 1 % injection 5 mL [id number] 06/29/2019 06:45:29 AM EST 5 mL Subcutaneous active 5 m L, Subcutaneous, Once PRN, for PICC insertion, Starting 06/29/19 at 0645, For [address] [facility] Medication administered onsite vancomycin (VANCOCIN) infusion 1,500 mg/300 mL (premix) [id number] 06/28/2019 04:00:00 PM EST 1500 mg Intravenous aborted 1,500 mg, Intravenous, Administer over 90 Minutes, Every 12 hours, First dose on 06/28/19 at 1615, For [address] [facility] Medication administered onsite Vitamin B 12 0.1 MG Oral Tablet vitamin B-12 (CYANOCOB ALAMIN) tablet 100 mcg vitamin B-12 (CYANOCOBALAMIN) tablet 100 mcg 06/28/2019 02:15:00 PM EST 100 ug Oral active 100 mcg, O ral, Daily Standard, First dose on 06/28/19 at 1415, For [address] [facility] Medication administered onsite Nicotine 4 MG/ACTUAT [...] to stimulant effectsDo not exceed 16 cartridges/day
[facility] Medication administered onsite Acetaminophen 325 MG [...] mg from all sources in [address]
[facility] Medication administered onsite Acetaminophen 10 MG/ML Injectable Soluti on acetaminophen (OFIRMEV) infusion 1,000 mg acetaminophen (OFIRMEV) infusion 1,000 mg 06/27/2019 07:30:00 PM EST 1000 mg Intravenous completed 1,000 mg , Intravenous, Once, 06/27/19 at 1930, For 1 dose
If NPO and has not yet received an acetaminophen product in prior 4 hours.
[facility] Medication administered onsite HYDROmorphone (DILAUDID) injection 0.52 mg [id number] 06/27/2019 07:19:39 PM EST 0.5 mg Intravenous aborted 0.52 mg (rounded from 0.5 mg), Intravenous, Every 5 min PRN, Severe Pain (Pain Scale Score > 6), Starting Sun06/27/19 at 1919, For 4 doses, [facility] Medication administered onsite fentaNYL (SUBLIMAZE) (PF) injection 12.5 mcg [id number] 06/27/2019 07:19:39 PM EST 12.5 ug Intravenous aborted 12.5 mcg, Intravenous, Every 5 min PRN, Moderate Pain (Pain Scale Score 4-6), Starting 06/27/19 at 1919, For 10 doses, [facility] Medication administered onsite Diazepam 5 MG Oral Tablet diazePAM (VALIUM) tablet 10 mg diazePAM (VALIUM) tablet 10 mg 06/27/2019 01:20:35 PM EST 10 mg Oral activ e 10 mg, Oral, Every 6 hours PRN, Anxiety, high CIWA, Starting Sun06/27/19 at 1320, For [address] [facility] Medication administered onsite Diazepam 5 MG Oral Tablet diazePAM (VALIUM) tablet 5 m g diazePAM (VALIUM) tablet 5 mg 06/27/2019 10:15:00 AM EST 5 mg Oral completed 5 mg, Oral, Once, Sun06/27/19 at 1015, For [address] [facility] Medication administered onsite Albuterol 0.833 MG/ML [...] this unless PELON is selected 'Yes' below.
[facility] Medication administered onsite Albuterol 0.833 MG/ML [...] this unless PELON is selected 'Yes' below.
[facility] Medication administered onsite Diazepam 5 MG Oral Tablet diazePAM (VALIUM) tablet 10 mg diazePAM (VALIUM) tablet 10 mg 06/26/2019 07:26:15 PM EST 10 mg Oral compl eted 10 mg, Oral, Every 1 hour PRN, Anxiety, per CIWA protocol, Starting [facility] 06/26/19 at 1926, For 4 doses
Maximum of 40 mg in 4 hour period. If patient is sleeping, do not wake them to administer Diazepam or to assess the CIWA score. Assess once patient awakens.
[facility] Medication administered onsite 24 HR Nicotine 0.292 MG/HR Transdermal P atch nicotine (NICODERM CQ) 7 MG/24HR 1 patch nicotine (NICODERM CQ) 7 MG/24HR 1 patch 06/26/2019 01:30:00 PM EST 1 {patch} Transdermal aborted 1 patch, Transdermal, Administer over 24 Hours, Daily Standard, First dose (after last modification) on [facility] 06/26/19 at 1330, For [address] [facility] Medication administered onsite Diazepam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 Dntn/Q8RRwBhJMDfGx+Vweg5SCZ+ozZWkEI7+CGqWR7ET5QwSKrJgzP2DblE4YP8jnAvU7ltjdopvyvH lZXly1HgeGCg2Xvr7bEQ6QYtXXYrasICPDxLPo6zehAAyY4ftS9ecbVTfi0X933i2xKQnryHJBuQ3lmq eEjHfl9wFUET3MgXB0uOrYY3u+3GGVHSkn4MoqZi+n A+SryDik5No7UUWxVKFB6YRF1jHeRVngqJIRP4CACLjqsxNk1wDlSwcXojOk0e0ds7MVNv5d2Os75aZS YVzIbRtR68VnUyknWt4i+PUEQTZoqNakNQO7DJTJmThQx8Ipk0UF7BWyPXXHQ+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 [file] AgICAgICAgICAgICAgICAgICAgICAgICAgICAgICAgICAgICAgICAgICAgICAgICAgICAgICAgICAgIC AgICAgICAgICAgICAgICAgICAgICAgICAgICAgICAgICANCiAgICAgICAgICAgICAgICAgICAgICAgIC AgICAgICAgICAgICAgICAgICAgICAgICAgICAgICAg ICAgICAgICAgICAgICAgICAgICAgICAgICAgICAgICAgICAgICAgICAgICANCiAgICAgICAgICAgICAg ICAgICAgICAgICAgICAgICAgICAgICAgICAgICAgICAgICAgICAgICAgICAgICAgICAgICAgICAgICAg ICAgICAgICAgICAgICAgICAgICAgICAgICANCiAgIC AgICAgICAgICAgICAgICAgICAgICAgICAgICAgICAgICAgICAgICAgICAgICAgICAgICAgICAgICAgIC AgICAgICAgICAgICAgICAgICAgICAgICAgICAgICAgICAgICANCiAgICAgICAgICAgICAgICAgICAgIC AgICAgICAgICAgICAgICAgICAgICAgICAgICAgICAg ICAgICAgICAgICAgICAgICAgICAgICAgICAgICAgICAgICAgICAgICAgICAgICANCiAgICAgICAgICAg ICAgICAgICAgICAgICAgICAgICAgICAgICAgICAgICAgICAgICAgICAgICAgICAgICAgICAgICAgICAg ICAgICAgICAgICAgICAgICAgICAgICAgICAgICANCi AgICAgICAgICAgICAgICAgICAgICAgICAgICAgICAgICAgICAgICAgICAgICAgICAgICAgICAgICAgIC AgICAgICAgICAgICAgICAgICAgICAgICAgICAgICAgICAgICAgICANCiAgICAgICAgICAgICAgICAgIC AgICAgICAgICAgICAgICAgICAgICAgICAgICAgICAg ICAgICAgICAgICAgICAgICAgICAgICAgICAgICAgICAgICAgICAgICAgICAgICAgICANCiAgICAgICAg ICAgICAgICAgICAgICAgICAgICAgICAgICAgICAgICAgICAgICAgICAgICAgICAgICAgICAgICAgICAg ICAgICAgICAgICAgICAgICAgICAgICAgICAgICAgIC ANCiAgICAgICAgICAgICAgICAgICAgICAgICAgICAgICAgICAgICAgICAgICAgICAgICAgICAgICAgIC AgICAgICAgICAgICAgICAgICAgICAgICAgICAgICAgICAgICAgICAgICANCjw/vBLeP0msqABiiaF5Q8 kdZy1UQa9GFM4cs0WzHNDmHDemifHdKddCAtOsPEWh GlqHMpx1XSlpOG1RbFJrJ3IjI7AuCVvwWH2UBCKpDFXbqIKgULLxRPWsXgE1NDPwVPmhXP3NhRFuVMzt GIOfPTAeCxSnPGQpKVBzKXMgZWRdDXTQMY5RHeUxR4LhpN29UDGABr1+ECuuijJwJfiTRpMoBNPaz1Gg PHp2HF6WMMFlWbhqe5WeTvDrTGKOZLheRL3EWFS6XW NqOPJrIm5EBKZdG355lqBdRX6NYx6PYfHsNR1wuc7NInDmVRYhWrgJPxy6IAntUL9CzUKlWSgNdq4ccj EgvcPOe1BwhgDlbRVLx01eaPnwfeJXAWPjjmwltwipIQJbOVIlAr5xOy4pXQAjXWSpMvTkKABPLB5YIZ OcYWXhfYMeQLWhTCDKZZ9PTAypMKG1BJCzsoRctPOl TQhiCR5JGRGavnMdFuBbFWWOFEj+Xr2QZH9ew9SmZOsbJjYfEE9xgq2VKKtIHoGdD4S3wAHdU5Q1OHbb Sw9MAGCqGGZgWncoFPPDKPatGA7JFD7jngE6IW6XjRZlPQEaJROdnPYgLZq0I89zzFAhNQhvCV4XFQB+ Harry+Ck5KBSFxEYZxODNgOiTrKBNQVsDcR1KuN4EAr8 ByW2CtQS01uNisztKiFPtlRT4ACS7uHQWeLYTLLW8FuOOiaP4srkYgTNPeCPGCNvAmK05eoTWmELMhYO F8CBPjWu1MVJWpF6GfrfPjdRwplyJaJQAcACMSRJ9UMUsqjzLbiMXviDmdTR81yJwoGV4XZm2WIhJwRJ 8ook6BtQJhEo0GRKOoIi3FNDSpKBKgTHHpJAX7YTKy LwHfCVtkCUGyORRvZMN1HWToXIDzRP8XVjFzLEFzTaB5IjEoOZPdKLNrkx8DMHRmWQJvXAFuTzTaTCGj HPEyHKclSLSxLJEwDDA9XDJjTZTtAC3NOcGnENNcHKO5CBfxMMXrXYLznt8QFSLbODMnUtb8JnWpMKSk KWWhBQaeTXJiDMM1EDm4POSgAWVcDH5TCaLtGSIsEE bjJjevVMFoUPDrfp6COWYeJBQzGBU2OYUcLAOkZZMiQEgfMYTfXSC8ZJR3BHOkYCNcTS5SKrTyVOHjWY I5JbohCBWhHBHaam7AHQJiRNObRhI5LLEaDLFuNSUdJSeqCUVcDYPyYTD8AFMyTEAbEV5TMsAmDXSeFZ MiKHQeAQSiEWUtrf1AVZGxMEHrLlY2JPXhWDClEKZx PVleNVUpLPK9XXCxADOwYRCxAJ0YUeLgRTUlFND8YCHyHJIrJVSnxg7JVAPfWSSpBEqlAzLjDBOqUDIr CXlwGJCaSES6CzFsCRHdFWWrZW7TAqTtWMXyJsK1ARbmQZVsTJDbso0VVCShNDCbQov8FfBhVJIbPSUo FFlxHDRsQFT1JWB9FCAkLAJcFW7MKwNdSARoXsuaSC WcYQWaJZMuum3TAIElKGCxTPSkEfXqVCTlWQLgEGcwZHJiWRT0CsH6QUDbKABjBT6DFhLaOORyTcr3MG AhLCUhQKOjsz0BLWGuELRzSAxeALIgTBCuBIZqGPzuZKRgIPQtHaIwOCOmKEFrUH4JWpSnSKLhOqBaXN cjRDKsGKAhtp8QWTMsPJFaGUL6JZGhSFPkRJQuQNpv UMUpNCG3KiX4SOGyZXYlRC0KLbUnKYHeLvY5KzeyUHYyQPCmss6UqEWkdQvbvk0MCEhKBi1VsOxlILLj IAjzSp2urSXdYpVtHUNCHj5MbzEkATXkNOJGRNypOALyIZJqLhAeXIYsRVY0PECbH3RlAlVrLJGaNNTi WEO5LwH6MzK9IVEgIFItTZQyYGF8BQP6UzW1MoBwRx Y1HpWrNIFmGbY+ON5eHFt+Lz3Jp3OyumR6brSlBIhyIRRrJG4GIXRMG3RCRy== ID Date Data Source [id number] 07/28/2019 08:29:42 PM EST [facility] Name Value Range Interpretation Code Description Data Chhaya rce(s) Supporting Document(s) ED Provider Note [facility] MJNRAg4xYoLHJwEc92/VPReoWSKzo5AnODtdHPo2BEfzJRMcY7VmZGL3yA4eBKI0TLwGQzHuNxGvWsBz lbm [file] OTRiMjRjYzBjZDUyNmE+WX6rDJn+He2Ts1QtdsI6uuMgDBl8THX4Nj0MMYYIM4ANBd== ID Date Data Source [id number] 07/24/2019 11:27:58 AM [facility] CT MAXILLOFACIAL WITHOUT CONTRAST [id number] INAL RESULTInterpreted by:Sonia Rob MDINDICATION: 39-year-old male [...] rce(s) Supporting Document(s) ID Date Data Source [id number] 07/24/2019 05:57:11 AM [facility] XR CHEST FRONTAL ONLY [id number] RESULTI nterpreted by:Lizbeth Hagen DOPROCEDURE INFORMATION: Exam: XR Chest, 1 View Exam date and time: 07/24/2019 5:49 AM Age: 39 years old Clinical indication: Other: Eval picc placment TECHNIQUE: Imaging protocol: XR of the chest Views: 1 view. COMPARISON: CR XR CHEST FRONTAL ONLY [id number] PORTABLE 06/28/2019 2:10 PM FINDINGS: Lungs: Unremarkable. [...] rce(s) Supporting Document(s) ID Date Data Source [id number] 07/17/2019 04:49:10 PM [facility] Name Value Range Interpretation Code Description Data Chhaya rce(s) Supporting Document(s) Progress Note [facility] GPYMDw9bToEJVaUz14/NFSxzEPQmb0HgQScvSGo1CLvhNUVhF1CrLWW4fA2iNBU5QLdMTjOjRgNhYHGf lbm [file] DQo+Dm0Me2UetoR8ovZeZGomWCe2Wn3HZQMUT3YGCj== ID Date Data Source [id number] 07/14/2019 08:18:40 PM [facility] Name Value Range Interpretation Code Description Data Chhaya e(s) Supporting Document(s) Leukocytes [#/volume] in Blood by Automated count 4.4 10*3/uL 4-10 [facility] Erythrocytes [#/volume] in Blood by Automated count 3.66 10*6/uL 4.6- 6.[address] [facility] Hemoglobin [Mass/volume] in Blood 13.0 g/dL 13.5-[address] [facility] Hematocrit [Volume Fraction] of Blood by Automated count 37.9 % 4 1-[address] [facility] Erythrocyte mean corpuscular volume [Entitic volume] b y Automated count 103.4 fL 80-[address] [facility] Erythrocyte mean corpuscular hemoglobin [Entitic mass] by Automated count 35.5 pg 27-[address] [facility] Erythrocyte mean corpuscular hemoglobin concentration [Mass/volume] by Automated count 34.3 g/dL 32.0-36.0 [facility] Erythrocyte distribution width [Ratio] by Automated count 13.9 % 11.5-14.5 [facility] Platelets [#/volume] in Blood by Automated count 257 10*3/uL 150-400 [facility] Differential cell count method - Blood [facility] Neutrophils/100 leukocytes in Blood by Automated count 48 % [facility] Lymphocytes/100 leukocytes in Blood by Automated count 37 % [facility] Monocytes/100 leukocytes in Blood by Automated count 11 % [facility] Eosinophils/100 leukocytes in Blood by Automated count 3 % [facility] Basophils/100 leukocytes in Blood by Automated count 1 % [facility] Neutrophils [#/volume] in Blood by Automated count 2.14 10*3/uL 1.8-[address] [facility] Lymphocytes [#/volume] in Blood by Automated count 1.62 10*3/uL 1.2-[address] [facility] Monocytes [#/volume] in Blood by Automated count 0.47 10*3/uL 0-0.8 [facility] Eosinophils [#/volume] in Blood by Automated count 0.12 10*3/uL 0-0.5 [facility] Basophils [#/volume] in Blood by Automated count 0.05 10*3/uL 0-0.2 [facility] Nucleated erythrocytes/100 leukocytes [Ratio] in Blood by Automated count 0 /100{WBCs} 0-0 [facility] ID Date Data Source [id number] 07/14/2019 08:26:26 PM [facility] Name Value Range Interpretation Code Description Data Chhaya rce(s) Supporting Document(s) C reactive protein [Mass/volume] in Serum or Plasma 1.2 mg/L <8.0 [facility] ID Date Data Source [id number] 07/14/2019 08:26:26 PM [facility] Name Value Range Interpretation Code Description Data Chhaya rce(s) Supporting Document(s) Albumin [Mass/volume] in Serum or Plasma by Bromocresol green (BCG) dye binding method 3.8 g/dL 3.5-5.2 [facility] Bilirubin.total [Mass/volume] in Serum or Plasma 0.3 mg/dL <1.2 [facility] Calcium [Mass/volume] in Serum or Plasma 9.1 mg/dL 8.6-10.0 [facility] Chloride [Moles/volume] in Serum or Plasma 102 mmol/L 98-107 [facility] Creatinine [Mass/volume] in Serum or Plasma 0.70 mg/dL 0.70-1.20 [facility] Glucose [Mass/volume] in Serum or Plasma 130 mg/dL 70-140 [facility] Alkaline phosphatase [Enzymatic activity/volume] in Serum or Plasma 85 U/L 40-129 [facility] Potassium [Moles/volume] in Serum or Plasma 4.4 mmol/L 3.4-5.1 [facility] Protein [Mass/volume] in Serum or Plasma 6.2 g/dL 6.4-8.3 [facility] Sodium [Moles/volume] in Serum or Plasma 139 mmol/L 136-145 [facility] Aspartate aminotransferase [Enzymatic activity/volume] in Serum or Plasma 20 U/L <40 [facility] Urea nitrogen [Mass/volume] in Serum or Plasma 4 mg/dL 6-[address] [facility] Osmolality of Serum or Plasma by calculation 287 mosm/kg 275-300 [facility] Creatinine/Urea nitrogen [Mass Ratio] in Serum or Plasma 6 [facility] Bicarbonate [Moles/volume] in Serum 22 mmol/L 22-29 [facility] Alanine aminotransferase [Enzymatic activity/volume] in Seru m or Plasma 23 U/L <41 [facility] Anion gap 3 in Serum or Plasma 15 mmol/L 8-15 [facility] Albumin/Globulin [Mass Ratio] in Serum or Plasma 2.0 [facility] Glomerular filtration rate/1.73 sq M pre dicted among non-blacks [Volume Rate/Area] in Serum or Plasma by Creatinine-based formula (MDRD) >[address] [facility] Glomerular filtration rate/1.73 sq M pre dicted among blacks [Volume Rate/Area] in Serum or Plasma by Creatinine-based formula (MDRD) >60 [facility] ID Date Data Source [id number] 07/14/2019 09:17:52 PM [facility] Name Value Range Interpretation Code Description Data Chhaya rce(s) Supporting Document(s) Erythrocyte sedimentation rate 9 mm/hr <15 [facility] ID Date Data Source [id number] 07/11/2019 12:47:37 PM [facility] Name Value Range Interpretation Code Description Data Chhaya rce(s) Supporting Document(s) Operative Note [facility] VTCJHz9qXzRJVxAm25/NJCsvBGGsr3SfEKrrMQc1MYjeTVEvQ8HkWOM9yY0hHGP8XGgBUpCjVlBtXQW8 lbm [file] 0gDQo+Pj4Zi7YzmuT5ivPyWGfeIBt5Se0RHRXFY8TRRo== ID Date Data Source [id number] 07/09/2019 05:57:17 PM EST [facility] Name Value Range Interpretation Code Description Data Chhaya rce(s) Supporting Document(s) Discharge Summary [facility] GXEJXs9xYsYOLzFv28/MDUgxIJZbh6OkMKgzVWv7VLzeGVOyC6RfPXA3qR2qPOF3XGqZGbGuCrUcAFYa lbm [file] ICAgICAgICAgICAgICAgICAgICAgICAgICAgICAgICAgICAgICAgICAgICAgICAgICAgICAgICAgICAg QYWtTGTsRRYhCNDtZM7UKTHjJNSzKMCiBFJaKBBaLOJmZOFcEZJtUYHqWAOuDHKiEQJmQPXfKYYiHYRa ICAgICAgICAgICAgICAgICAgICAgICAgICAgICAgIC WxLDBiJAHyPVIkKSBlUWQsSBIfBJLlEW1GAMAmHEGjRIYoKWUjSLEaYIHxIKOjOBZjFCGgMJTzYZYgAD AgICAgICAgICAgICAgICAgICAgICAgICAgICAgICAgICAgICAgICAgICAgICAgICAgICAgICAgICAgIC YyGFFpPZ5YYIRpNOSpEWVcZLLjMICmUSGgIGPmOIWn ICAgICAgICAgICAgICAgICAgICAgICAgICAgICAgICAgICAgICAgICAgICAgICAgICAgICAgICAgICAg JUFnMFTlFDIpIFVtWWYrRK4YKGWoDOOmJEFzBITtQRMeRMDyVAXeJFPgLVHtOQVlCNDhWSQuKCOlPHUv ICAgICAgICAgICAgICAgICAgICAgICAgICAgICAgIC OiZDNsPROkPDMgIOKmQVTkVNSnLABsBATbDQ4CCCOxORDjVWPzOBEtZKGgOZMzTDUrFLCwXCZqPPAtWG AgICAgICAgICAgICAgICAgICAgICAgICAgICAgICAgICAgICAgICAgICAgICAgICAgICAgICAgICAgIC IoZDJqUZMoHT5CYSEtHUClFEVtUMZeZCMbMTHiRNJf ICAgICAgICAgICAgICAgICAgICAgICAgICAgICAgICAgICAgICAgICAgICAgICAgICAgICAgICAgICAg ISVkSIEqKVNkSSTzKHIpXUVjLX1FWPUxGSWgVNRxWEKvKVBiIHKxPGBoTFYxZKQfQEQrXRJfWQTdNUDi ICAgICAgICAgICAgICAgICAgICAgICAgICAgICAgIC PwDBItHQXmDBHcFKMaVUUbWSPdOSZoGQUcBEUaUO6VALJbMQCeABMwLOWcSASrOLEhEQDwLVRtWIUcPW AgICAgICAgICAgICAgICAgICAgICAgICAgICAgICAgICAgICAgICAgICAgICAgICAgICAgICAgICAgIC HuNBHkWZLeZQKaDV3GZXIzSSAgTCKhBRNjPUDhRLUe ICAgICAgICAgICAgICAgICAgICAgICAgICAgICAgICAgICAgICAgICAgICAgICAgICAgICAgICAgICAg NVDcTHXpCRCvEOAiWBFjZBEiPALqUY3AOR24oZYyc6V3OTRtRO2njyh/Hy0JFFlclgVbfVAzVA0LWhZk EM7lpk7FIyCtRS1uhx1AFQzGIkKqH9I3oAKwSTZjIG LJWoZpM27iCOjkIz10DZksGEVbChJrHMl1Rq4LIrEuZ4tvGHDhVoF0QCToJvA8LPZuTmI4HGEdMhHcZL wqXR5Pu9GeoZEmYVp+Xl1UGK9pu3HyJDicJTIqCQ2gxr0WRAdIEpAzN5MwfeN6AFOdCGCnNs8XNFDgIH WcfUIoFuPcCKQBExQwD1DhvX34TMABRr3+DQplbmRv WwzWRgHwMPBjs7LoQIt5JS0DXRWgFAh3cYJfUIxmU0edpaodOHS3aE8ikthgPvvsM5EjH2OkWZQJkXql DHLcJKReDS0iTW0iYTGdIGVgRqU2PUXIRG6MNGSyWZLbkPEiOHBgUDYTUL6SEMcrNYT1YDMxpnEiyELq SChgID1UCZYoocJbZuUmNCRBOZz+Hd6DTQ4rq1JrWA exNnIkXZ2xsy2FDFwKYtWhZ2D3kYQpA6Q9YZvdFk3QJJEqPRYcVHbySUNCFSmiYB5DFO5unnR5IF5ZyZ ByPXRrDGUygUNqBUi0A15ouSPrZCmtPB7MYLH+Harry+Wj9POHOsJOSaPJZeShVnSCCADpPkX6AvH0IJe5 WeI6ZnGL77uXosrrBkFGfqGG2JJA3cRYNoRIASAT2E dXVuzS8gxaDcZFDyXMYNRgNxZ44vzFCvBLNcBEBtRDAfSj7MEEMdW7SyfiBrtXhhqzDpRSPdOWNZNR5R XKcrtvOuoHBhcLkpJS84gAzsXV0YLc5RIqYkFT3xee0NwWVsDt3NTVOpKL4ZVKKmGPJcCGQbFUQ2XJYr VyZyTOibEJWsKHPzLAW6JRLcRKAiSY8BTgYpEIAaAA XjKkAuEHMrJAHkyw0DLDFsOKVfSmn1RMVhMBHcLJNuUAboPAJfWVApLNK2TRFeSXKgSE9BYpQeEFKuHJ I9QmMqKQIaWUUhoy3YYEIgNWWkGgzoWoHqZFKyEGQfSLikHTNpMUM5PmA6ZYWkZFRmAA9YSxHnXVOpAI W0HuSlMQOuNDRlly8IPCHcJZJtMxz6MNBrFCLvPMYb OUlrSTJqFSM6RJT9XTCoNFBdHY1FGlNvITYjFDu8EALxIBNzOKEvtt1YPEFgGQKnCWZxQsHkUZFpLZJk BAvmNOCfSUE7Ufx1NKKuEOBdRU9DDtYsFHRfBNTdANYhXVUpMVCqqf4UIMWiWHUyOUP4SkQjJPGnJVZm FPyeQNTsNKHqSgL0TGLaUKSaDL0RJlTiJFAzKQA9JR OwYKJzJNVwmy0JXRNmMNOsQNgnYMKcUBVyEKGkLIfmDCBiVXDfEPy7NOZiIRBrYJ0EVrWvMSGwPOG3Wl QrBPEySSZpcg7QBQRiBMVhKux7QPVhBFKuMQFjDMjwWBIoCTEwGACnUDIvULTrUI0FTmRwVRAnNFWgJZ YfBBYoCNJfqd9DrPYnvSccar0EENyGSc7WiEovNLP1 OGfsTz1ppAXbAeAeIPJMHq1ImcRqGOPeHUTCTDbhOFUkWZU3GVJkSIStXcVnGJWjUPCsREHsTsT4EAH1 HzZgTwB5LcH5HGamHACmWZNzRjLnUzDsQ2KnIAUgXqKyPTNfKfU4FQM+IL5aNEu+Dw5Ar6MbtoS0vlTu XSprJBHvLU6XXHHXU5RRVq== ID Date Data Source [id number] 07/08/2019 07:33:19 PM [facility] Name Value Range Interpretation Code Description Data Chhaya rce(s) Supporting Document(s) Leukocytes [#/volume] in Blood by Automated count 6.4 10*3/uL 4-10 [facility] Erythrocytes [#/volume] in Blood by Automated count 3.84 10*6/uL 4.6- 6.1 [facility] Hemoglobin [Mass/volume] in Blood 13.6 g/dL 13.5-18 [facility] Hematocrit [Volume Fraction] of Blood by Automated count 39.6 % 4 1-[address] [facility] Erythrocyte mean corpuscular volume [Entitic volume] b y Automated count 103.2 fL 80-[address] [facility] Erythrocyte mean corpuscular hemoglobin [Entitic mass] by Automated count 35.3 pg 27-[address] [facility] Erythrocyte mean corpuscular hemoglobin concentration [Mass/volume] by Automated count 34.2 g/dL 32.0-36.0 [facility] Erythrocyte distribution width [Ratio] by Automated count 13.3 % 11.5-14.5 [facility] Platelets [#/volume] in Blood by Automated count 292 10*3/uL 150-400 [facility] Differential cell count method - Blood [facility] Neutrophils/100 leukocytes in Blood by Automated count 53 % [facility] Lymphocytes/100 leukocytes in Blood by Automated count 32 % [facility] Monocytes/100 leukocytes in Blood by Automated count 13 % [facility] Eosinophils/100 leukocytes in Blood by Automated count 1 % [facility] Basophils/100 leukocytes in Blood by Automated count 1 % [facility] Neutrophils [#/volume] in Blood by Automated count 3.37 10*3/uL 1.8-[address] [facility] Lymphocytes [#/volume] in Blood by Automated count 2.03 10*3/uL 1.2-[address] [facility] Monocytes [#/volume] in Blood by Automated count 0.83 10*3/uL 0-0.[address] [facility] Eosinophils [#/volume] in Blood by Automated count 0.04 10*3/uL 0-0.5 [facility] Basophils [#/volume] in Blood by Automated count 0.09 10*3/uL 0-0.2 [facility] Nucleated erythrocytes/100 leukocytes [Ratio] in Blood by Automated count 0 /100{WBCs} 0-0 [facility] ID Date Data Source 07/08/2019 07:40:13 PM [facility] Name Value Range Interpretation Code Description Data Chhaya rce(s) Supporting Document(s) C reactive protein [Mass/volume] in Serum or Plasma 5.2 mg/L <8.0 [facility] ID Date Data Source [id number] 07/08/2019 07:40:13 PM [facility] Name Value Range Interpretation Code Description Data Chhaya rce(s) Supporting Document(s) Albumin [Mass/volume] in Serum or Plasma by Bromocresol green (BCG) dye binding method 3.9 g/[facility] Bil[facility] [Mass/volume] in Serum or Plasma 0.3 mg/dL <1.2 [facility] Calcium [Mass/volume] in Serum or Plasma 9.3 mg/dL 8.6-10.0 [facility] Chloride [Moles/volume] in Serum or Plasma 99 mmol/L 98-107 [facility] Creatinine [Mass/volume] in Serum or Plasma 0.58 mg/dL 0.70-1.[address] [facility] Glucose [Mass/volume] in Serum or Plasma 84 mg/dL 70-140 [facility] Alkaline phosphatase [Enzymatic activity/volume] in Serum or Plasma 103 U/L 40-129 [facility] Potassium [Moles/volume] in Serum or Plasma 4.3 mmol/L 3.4-5.1 [facility] Protein [Mass/volume] in Serum or Plasma 6.8 g/dL 6.4-8.3 [facility] Sodium [Moles/volume] in Serum or Plasma 137 mmol/L 136-145 [facility] Aspartate aminotransferase [Enzymatic activity/volume] in Serum or Plasma 23 U/L <40 [facility] Urea nitrogen [Mass/volume] in Serum or Plasma 5 mg/dL 6-[address] [facility] Osmolality of Serum or Plasma by calculation 280 mosm/kg 275-300 [facility] Creatinine/Urea nitrogen [Mass Ratio] in Serum or Plasma 8 [facility] Bicarbonate [Moles/volume] in Serum 23 mmol/L 22-29 [facility] Alanine aminotransferase [Enzymatic activity/volume] in Seru m or Plasma 28 U/L <41 [facility] Anion gap 3 in Serum or Plasma 15 mmol/L 8-15 [facility] Albumin/Globulin [Mass Ratio] in Serum or Plasma 1.0 [facility] Glomerular filtration rate/1.73 sq M pre dicted among non-blacks [Volume Rate/Area] in Serum or Plasma by Creatinine-based formula (MDRD) >[address] [facility] Glomerular filtration rate/1.73 sq M pre dicted among blacks [Volume Rate/Area] in Serum or Plasma by Creatinine-based formula (MDRD) >60 [facility] ID Date Data Source [id number] 07/08/2019 08:38:19 PM [facility] Name Value Range Interpretation Code Description Data Chhaya rce(s) Supporting Document(s) Erythrocyte sedimentation rate 28 mm/hr <[address] [facility] ID Date Data Source [id number] 07/04/2019 04:25:36 PM [facility] Name Value Range Interpretation Code Description Data Chhaya rce(s) Supporting Document(s) Progress Note [facility] QEOPAc0zLrDAIhVz13/ITUdvGDBtm5MhLOdlEAc4MZjnPAQrR0RiRCY9mK0oRAW6ZWhNCzQyDbOnGXW9 [facility] [file] AgICAgICAgICAgICAgICAgICAgICAgICAgICAgICAgICAgICAgICAgICAgICAgICAgICANCiAgICAgIC AgICAgICAgICAgICAgICAgICAgICAgICAgICAgICAg ICAgICAgICAgICAgICAgICAgICAgICAgICAgICAgICAgICAgICAgICAgICAgICAgICAgICAgICAgICAg ICANCiAgICAgICAgICAgICAgICAgICAgICAgICAgICAgICAgICAgICAgICAgICAgICAgICAgICAgICAg ICAgICAgICAgICAgICAgICAgICAgICAgICAgICAgIC AgICAgICAgICAgICANCiAgICAgICAgICAgICAgICAgICAgICAgICAgICAgICAgICAgICAgICAgICAgIC AgICAgICAgICAgICAgICAgICAgICAgICAgICAgICAgICAgICAgICAgICAgICAgICAgICAgICANCiAgIC AgICAgICAgICAgICAgICAgICAgICAgICAgICAgICAg ICAgICAgICAgICAgICAgICAgICAgICAgICAgICAgICAgICAgICAgICAgICAgICAgICAgICAgICAgICAg ICAgICANCiAgICAgICAgICAgICAgICAgICAgICAgICAgICAgICAgICAgICAgICAgICAgICAgICAgICAg ICAgICAgICAgICAgICAgICAgICAgICAgICAgICAgIC AgICAgICAgICAgICAgICANCiAgICAgICAgICAgICAgICAgICAgICAgICAgICAgICAgICAgICAgICAgIC AgICAgICAgICAgICAgICAgICAgICAgICAgICAgICAgICAgICAgICAgICAgICAgICAgICAgICAgICANCi AgICAgICAgICAgICAgICAgICAgICAgICAgICAgICAg ICAgICAgICAgICAgICAgICAgICAgICAgICAgICAgICAgICAgICAgICAgICAgICAgICAgICAgICAgICAg ICAgICAgICANCiAgICAgICAgICAgICAgICAgICAgICAgICAgICAgICAgICAgICAgICAgICAgICAgICAg ICAgICAgICAgICAgICAgICAgICAgICAgICAgICAgIC AgICAgICAgICAgICAgICAgICANCiAgICAgICAgICAgICAgICAgICAgICAgICAgICAgICAgICAgICAgIC AgICAgICAgICAgICAgICAgICAgICAgICAgICAgICAgICAgICAgICAgICAgICAgICAgICAgICAgICAgIC ANCjw/uZPpB4wejNWihlK6A3npTc2MEf1OEX3lb9Rq BSYpJVdvdeXxNzeRRiSoPGCzNozCWbk8BDywDV6KrZAlZ3RmZ0KySZctQX0KQHDcHFTqjZQgPWFlYNOj VeY8EXIgSVvwWK3OkAQiZWkeVGExELLtJQ8KPYMeH945amAkPN7XXk2GLbYhSH3xbn8OVSbiRIYgGvnC Oyq5YVjcMB7QxYIhcXEbBUWrQYHBKaZbP1efk8ObGn BeJCPGQKfiKM1Gs9KvtZXaPKv+Ls3XAU9ov1MaFNciAPYtVU7wji8BAEqPZuBbU7JvgToqJIWot7ofER NyUA4bhULjOBY0WZRiPNAtLtNNwCC9NBPlkrVhXBjzCMBzDRDxXL8hTw7wIIXuBNCxJiNeATXBKF7OAG GpMWCjcCWsGGVlEMJMTU0NJBftTVV0ZSNrefLmrCYd WSyjWE5HDAFytaSpQYinUSABXWn+Rz5EWG5yc5UyKSmpMANjSS2sqk0MRTnWRvEaU3S8rBIwD0T6EXgi Fe3HUFXiGJTvWSopEHVWNBceMS3KBK6aywS3YK4IcEYtAWUkPMWemHCoOLc8S68npIBuFAigAX0DZVK+ Harry+Qx7YSFUsTQMhFUZlItIvUUQOHbOzX6HqK8ZOb2 ObS1HqEQ27kFldixOdZNrkZO0ERQ9xUSDsIOQOQT9GuFMwkX6qkjWyKRZhKPMMObAmJ35bqUCnVFKyNF Z5EZGkNu2DVTLfW5XbqnAaiBqzjnOfOINqICPVOH4OGByjxuBpsJPnxWwbZO17uWywNU3KAo3AXrSvQH 2fsc8RmGUnZi3ZOSPkEm5JNVItXYLdXMLdUWZ6WFTr JlYiNAfzRFHwPRNsPYW0PCSwJRLsFZ2KXxCePPOrPMuzTFXqBFSzEVNgpp4QSHDkKZHoNCAuNwRaVIIk XGElSBihLZRbUBCfWFX9XMEcABRzNW1JVjWbEIJdQZXxZVJuWKCnMOCvyp1ITSDvLXBhEqRpEWWsLAOx MWAgSWnuTOZwPXQdCwpyVIDeBHQwBX7SJvRnTMOaZM J4SzrwJXFmSQXnon5FTGXdGJOdEid5GBSeWQJzLUMmAHuxBFBpNJC5FxW6CCIjYXQuAZ5FQmKcKGGdYN D6NKneMMBnNFPuil1NZMFwKAElTSI2AlPmTKVlUATdZFohKFYcKLU3FXDpFNVmXLZpZA6HGiQwMRPsLO S6BlplTRTyFCYdqb2QAHCiNEXgJsi4ZjHsUSGgHPTr UNhnPLIlOIT8WsZ7CURxQPRuKK1FDqRdIEFcPPfbToYbTQOxMCKsqk2URTHhNNWfCqr8GmKnKVQxBWVx JVhkTMMfBQS6HwVuPEWtTDOqBB4VDrWvDZJeTAakEbPxWSZrLMVlnq4KXSPaOYKdEFZpDXOvHYKyRXLk LRd9hgBglXDqLFz6XI6WO2PhgjMsLiGJHn7Ln295HF GcBDNxMp1RC3lkWc2kSVNuTUZGAr2JIOr1Puo2SSmjGEBfSWWtQPfcXbNiBKFzPHRjCtTkTMQ7BmR+ID fuSOm5DQGhQCEeCeOeXfXnLkE7HdJdEaZzLYZwHtv8XQ8dAOZIJk4+HBwqzDXdmPfdWWRXOtW2PvG5BW xaHGFPRu1F ID Date Data Source [id number] 07/02/2019 05:47:00 PM [facility] [address] - NO FAX FAX TO [facility] [facility] [phone] AILEEN ADAMS - [address] - NO FAX FAX TO [facility] [phone] AILEEN ADAMS - [address] - NO FAX FAX TO [facility] [phone] AILEEN ADAMS [address] - NO FAX [facility]X TO [facility] [phone] Name Value Range Interpretation Code Description Data Chhaya rce(s) Supporting Document(s) SODIUM 139 MEQ/L 135-145 [facility] POTASSIUM 4.2 MEQ/L 3.5-5.3 [facility] CHLORIDE 104 MEQ/L 94-110 [facility] CARBON DIOXIDE 27 MEQ/L 22-33 [facility] ANION GAP 12 5-16 N [facility] BLOOD UREA NITRO 7 MG/DL 7-25 [facility] CREATININE 0.7 MG/DL 0.6-1.4 N [facility] GFR > 90.0 ML/MIN [facility] Stage G1 - Normal or high kidney functi on GFR normal is >=90 The MDRD GFR calculation is considered valid between the ages of 18 and 75 years only. The GFR is an estimate of the Glomerular Filtration Rate. It is considered accurate in evaluating patients with Chronic Kidney Disease,but may underestimate kidney function in Healthy Patients. BUN/CREAT RATIO 10 8-36 N [facility] GLUCOSE 109 MG/DL 70-100 H [facility] CA 9.3 MG/DL 8.7-10.5 [facility] BILIRUBIN,TOTAL 0.4 MG/DL 0.1-1.3 N [facility] AST 57 U/L 5-40 [facility] ALT 67 U/L 5-48 [facility] ALKALINE PHOSPHATASE 124 U/L 40-140 [facility] TOTAL PROTEIN 6.6 G/DL 5.9-8.3 [facility] ALBUMIN 4.1 G/DL 3.0-5.1 [facility] GLOBULIN 2.5 G/DL 1.5-3.5 N [facility] ALB/GLOB RATIO 1.6 G/DL 1.0-2.7 N [facility] ID Date Data Source [id number] 07/02/2019 05:57:00 PM EST [facility] DR AILEEN ADAMS - [address] - NO FAX FAX TO [facility] [phone]LEEN [address] - NO FAX FAX TO [facility] [phone]LEEN [address] - NO FAX FAX TO [facility] [phone] AILEEN ADAMS - [address] - NO FAX FAX TO [facility] [phone] Name Value Range Interpretation Code Description Data Chhaya rce(s) Supporting Document(s) WHITE BLOOD COUNT 7.22 10^3/uL 4.00-10.50 N [facility] ealth RED BLOOD COUNT 4.09 10^6/uL 4.30-5.80 L [facility] HEMOGLOBIN 14.0 G/DL 13.0-17.5 N [facility] HEMATOCRIT 42.3 % 41.0-53.0 N [facility] MCV 103.4 FL 80.0-100.0 H [facility] MCH 34.2 PG 27.0-34.0 [facility] MCHC 33.1 G/DL 32-36 N [facility] RDW 13.7 % 11.5-14.5 N [facility] PLATELET COUNT 233 10^3/uL 130-400 [facility] MPV 10.2 FL 8.7-13.2 N [facility] GRAN % (AUTO) 55.8 % 42.0-75.0 N [facility] LYMPH % (AUTO) 25.2 % 20.0-51.0 N [facility] MONO % (AUTO) 16.1 % 2.0-15.0 [facility] EOS % (AUTO) 1.9 % 0.0-11.0 [facility] BASO % (AUTO) 0.6 % 0.0-2.0 N [facility] IG % (AUTO) 0.4 % 1.00-5.00 [facility] IG # (AUTO) 0.0 10^3/uL <0.5 [facility] GRAN # (AUTO) 4.03 10^3/uL 1.50-6.50 [facility] LYMPH # (AUTO) 1.8 k/uL 1.0-5.0 [facility] MONO # (AUTO) 1.16 k/uL 0.20-1.50 [facility] EOS # (AUTO) 0.14 10^3/uL 0.00-1.10 [facility] BASO # (AUTO) 0.04 10^3/uL 0.00-0.20 [facility] ID Date Data Source [id number] 07/02/2019 05:47:00 PM [facility] [address] AILEEN Leo [address] - NO FAX FAX TO [facility] [phone] AILEEN ADAMS - [address] - NO FAX FAX TO [facility] [phone] AILEEN Leo [address] - NO FAX FAX TO [facility] [phone] AILEEN Leo [address] - NO FAX FAX TO [facility] [phone] Name Value Range Interpretation Code Description Data Chhaya rce(s) Supporting Document(s) C-REACTIVE PROTEIN 23 MG/L 0.00-5.00 [facility] ID Date Data Source [id number] 07/02/2019 05:57:00 PM [facility] [address] AILEEN Leo [address] - NO FAX FAX TO [facility] [phone] AILEEN Leo [address] - NO FAX FAX TO [facility] [phone]LE[address] - NO FAX FAX TO [facility] [phone] AILEEN Leo [address] - NO FAX FAX TO [facility] [phone] Name Value Range Interpretation Code Description Data Chhaya rce(s) Supporting Document(s) SED RATE 37 mm/hr 0-15 [facility] ID Date Data Source [id number] 07/01/2019 10:36:26 AM [facility] Name Value Range Interpretation Code Description Data Chhaya rce(s) Supporting Document(s) Creatinine [Mass/volume] in Serum or Plasma 0.70 mg/dL 0.70-1.20 [facility] Glomerular filtration rate/1.73 sq M pre dicted among non-blacks [Volume Rate/Area] in Serum or Plasma by Creatinine-based formula (MDRD) >[address] [facility] Glomerular filtration rate/1.73 sq M pre dicted among blacks [Volume Rate/Area] in Serum or Plasma by Creatinine-based formula (MDRD) >60 [facility] ID Date Data Source [id number] 06/30/2019 12:59:16 PM [facility] Name Value Range Interpretation Code Description Data Chhaya rce(s) Supporting Document(s) Consultation [facility] YOQDEs4gYgOHBtAg44/QSKvwWCPud0PdISakFMy2OAjqKBZmY8ZmUNA9iO5eRKX2INdTJqZgFqCgLMGh [facility] [file] VPRg0K ID Date Data Source [id number] 06/30/2019 09:32:37 AM [facility] XR MANDIBLE 4 OR MORE VIEWS [id number] R ESULTInterpreted by:GRAZYNA Shermanlinical indication: Status post [...] Date Data Source [id number] 06/30/2019 07:12:35 AM [facility] Name Value Range Interpretation Code Description Data Chhaya rce(s) Supporting Document(s) Vancomycin [Mass/volume] in Serum or Plasma --trough 10.1 ug/mL 10.0- 20.0 [facility] ID Date Data Source [id number] 06/29/2019 12:27:47 PM [facility] Name Value Range Interpretation Code Description Data Chhaya rce(s) Supporting Document(s) [facility] RNYVSw2hItEQDwLa21/UPQjfYDYpq0UpITejOEp6MBwaEKJrR0BwQUK3fU1nIYD1BFcLSyCySyUpRNDw m [file] +senior property manager+LW6dvrmSW4+LsOS4XEvVKk/Scro4C3sNxOxjJbKTJjvKgUXwU6UdC+BkHdh/1v24LmYYqoXZ6tx [file] piNKuEEpnKJbhW/6DR4Ma8k4LzuhVijlO0wDhWt [file] AgICAgICAgICAgICAgICAgICAgICAgICAgICAgICAgICAgICAgICAgICAgICAgICAgICAgICAgICAgIC AgICAgICAgICAgICAgICAgICAgICAgICAgICAgDQogICAgICAgICAgICAgICAgICAgICAgICAgICAgIC AgICAgICAgICAgICAgICAgICAgICAgICAgICAgICAg ICAgICAgICAgICAgICAgICAgICAgICAgICAgICAgICAgICAgICAgDQogICAgICAgICAgICAgICAgICAg ICAgICAgICAgICAgICAgICAgICAgICAgICAgICAgICAgICAgICAgICAgICAgICAgICAgICAgICAgICAg ICAgICAgICAgICAgICAgICAgICAgDQogICAgICAgIC AgICAgICAgICAgICAgICAgICAgICAgICAgICAgICAgICAgICAgICAgICAgICAgICAgICAgICAgICAgIC AgICAgICAgICAgICAgICAgICAgICAgICAgICAgICAgDQogICAgICAgICAgICAgICAgICAgICAgICAgIC AgICAgICAgICAgICAgICAgICAgICAgICAgICAgICAg ICAgICAgICAgICAgICAgICAgICAgICAgICAgICAgICAgICAgICAgICAgDQogICAgICAgICAgICAgICAg ICAgICAgICAgICAgICAgICAgICAgICAgICAgICAgICAgICAgICAgICAgICAgICAgICAgICAgICAgICAg ICAgICAgICAgICAgICAgICAgICAgICAgDQogICAgIC AgICAgICAgICAgICAgICAgICAgICAgICAgICAgICAgICAgICAgICAgICAgICAgICAgICAgICAgICAgIC AgICAgICAgICAgICAgICAgICAgICAgICAgICAgICAgICAgDQogICAgICAgICAgICAgICAgICAgICAgIC AgICAgICAgICAgICAgICAgICAgICAgICAgICAgICAg ICAgICAgICAgICAgICAgICAgICAgICAgICAgICAgICAgICAgICAgICAgICAgDQogICAgICAgICAgICAg ICAgICAgICAgICAgICAgICAgICAgICAgICAgICAgICAgICAgICAgICAgICAgICAgICAgICAgICAgICAg ICAgICAgICAgICAgICAgICAgICAgICAgICAgDQogIC AgICAgICAgICAgICAgICAgICAgICAgICAgICAgICAgICAgICAgICAgICAgICAgICAgICAgICAgICAgIC ZsLTXlAUGvAKRrKAXaWFKqFPTxRCAxKLOdOVMtRVRsGNJxOYNwWTv6E5hdNPHdZEXhVD5xOZb7Vk2+DQ aWLqVqIFW8hlHlbU1YLR0vp6AdXGyuNDPni8LuLOb0 JG0GXVVnFHudTS0DMNytct9NUERfXGZnpQZCf1byPsUnNJT2CLHfZwjfGY6YXAMwK8igjeYhDNJpQWKR FRgeZIWOPJotCNTGCDMcFUHuJaDkGcEwKADdMYLgOVJMBKI2MZWdIqKwRLmbUP4Sg6OdlKD2DTm+Pg0K KZ4wd2SrAEr3EFGoLT8zdm4VREaOTrNtP0PjxxH8GX BoBGPyXa8CNFYaIGTosES2XONtBIJHFdSnT9KaeL06FTIQIr4+KZgbrqNqXapPGrAaCFDri4KwZRg5UM 8PVNSjDOv4fCTvN76ql1VlvOVpBjiyAPKnwKotWBtvX1RrVCLuDKOROSKEgEYiUQDlWB2lHH2mYOBoLW RkSuDkCRIVSG3TSEJfXVRjrQXpLEEdZZBVDB1GDKcn QVZ5NPNyayOntPBmWGnzOO0MFUWmsvOqNCOaXQRUIFu+Bs4OLT8vu9YsOYt3ZjJxTB9atd2OCCcIUiDx D2H0pRGwS7E8YNbdKx5UAXWyZIMqNxloBSRFQTrdAJ5SZC0wazH2CK1KjLCdHCRlUXKfcHKoKLc3H67l tARlIXskRO4FVPP+Harry+Hr1OFOOcRCRkAKKsWlAoKA ZJPxCvX5OuY2WCb9CjC1DeCC97tPaxgvCdMCarXR6IWC6zPFKiLNKMTD2WaISzrV1didF3RKQhHEGCYb MoO94noSIkWGCbLWA3FFZyLt8LDCGmL2XasvWiaKklieWzAZHnGYFYXZ3RHIuqojWyoCKvfNqpOR74jT qgZL9ZVi8YRrSwPU0rrn2TfLUsIb6MRMD8My9XWRWj QIHoRXEtLOF2IRTpDoUdXCesUFAjERXsKLB3ZTMrVDPuMV1AWvHcLGIfUXH2NQTlPIBvDEPodc7NXZIs WCF7HrsbUjZfUFIlSNUbNGesZZVfIGLfGGB7GWLyQBFrRC2PBnFgRNNfBRR5HIEmBBTrYRCtri7VKPQb YEKdIrunUUXzNOAhJONiTByvKLXwTFB1ZCu6YQMgRE VwWO6WWtJpMIJfAXtbJTLwKSXfTGGjts9PMFKkZSAvYRw2VjOnIAJdZTLoYRnaDUOhGLHlVVu6JQTyXV MhWA0SOmFrDYIzMNV6QyUwNUVtXKBglf1GEGPmSVAmUyG4LZVpDMApYVVkNFjtOEVhQMT2LVF5VHMdSH RoCR5WVeEhSOWgKHP7FTRvQWWkZWRftm7KDPTeKRCb PKVsEaEcVQVxLOUpECuwJFGvBIZ5YlLjNJAiEUOaRM0ADiOrGCPcDfV5WxNbCVHfJVJdyn9PDNPxFHJe BIk3FHToSJAbDQWdYSlcGSKyCJPtKSW0JROyNZHuRE4NGjWeVYLrVwFqDqBhCMVaRLCuxp7SXSFtIWUx FjUrAMSrJYUqVSSyVDtxPFZcRKE4EgW0PGPjQXYzHT 3YMzMoZYZyLtB0CvEvKYEfGSHike2ZZLRjZTKpAJT3DHVfXOBaRBCrTEccAMNlIQS4QzM3GFPxDTMsJF 5HTsXvOQIdXcF1WIRsKAJgERDisa2XTLPqCNZuBUi2RPVeZJMcTTBsUFwzPNXxBAH9OohvIXPzQLXyIP 5BDhOeIIIhGxl6XPXaJTGaLRClpt2LIOOjOQKqJzim XFMlLALaYHIhIVsjQGNjOFZ2VLE6QKPhPYFtAK2ULyDzKJKzJohyXXAqMBWrXXLlmt0LZEWwAKGxHTSr KMVlJXXwLQItPSzqQOFwKKV1BKV1ZUJcLOOfAX9IIoDaTFNkFij3PIUjMWPwZRDgvj1XQBUbSBG6NKL3 DKGtQESiOOEqRVnzMIFgOLUbWxNbUAOmXXVmVZ7NRr GbZPUcWGC5UjPvEPPeDLZtkl8OMGJsVUZ0UAL8UpIhEKJoHLGqFIneHXGeYVJfJKKfFJEhKUSkGX3PEw GeANQxUPA4PmLkHXMnUSUkwb2HEJMdMNV1IgQ6JPPePEZzJOVeYUi0jaIlnPOlWWh1TB6RG4PcjwYeKI LRJy5Kv305CVCkGUCfZn4RA7anHs7zWMZjAQWILh4G CCt4CBY3ALOaHLM1ZNAzYLW5WVP9WQLfWMYjWKHkYchdWUF+NBk9Ncj2IuLsOdniTRQ7SQK8VfI3S0Ds WlE6TTG9GBKaLv9eBSUYHx1+KHjfbKLjtFfwACTNDrAhCcJ7TRwhKCMKDv1S ID Date Data Source [id number] 06/29/2019 07:33:[address] [facility] Name Value Range Interpretation Code Description Data Chhaya rce(s) Supporting Document(s) Consultation [facility] PSONCo3mMgPZYtPq68/XJAchBEDvb3SpBGyzNKq8HJpqRSEjZ3TpFMW2kU2vGHL1SStKJgWlZrAjTIVg lbm [file] ZiY8XWoiTNKJOi5Q ID Date Data Source [id number] 06/28/2019 09:26:55 PM [facility] Name Value Range Interpretation Code Description Data Chhaya rce(s) Supporting Document(s) Folate [Mass/volume] in Serum or Plasma 7.88 ng/mL >4.77 [facility] ID Date Data Source [id number] 06/28/2019 08:51:36 PM [facility] Name Value Range Interpretation Code Description Data Chhaya rce(s) Supporting Document(s) Erythrocyte sedimentation rate 31 mm/hr <[address] [facility] ID Date Data Source [id number] 06/28/2019 09:28:10 PM [facility] Name Value Range Interpretation Code Description Data Chhaya rce(s) Supporting Document(s) Cobalamin (Vitamin B12) [Mass/volume] in Serum or Plasma 380 pg/ml 2 -946 [facility] ID Date Data Source [id number] 06/28/2019 09:28:10 PM [facility] Name Value Range Interpretation Code Description Data Chhaya rce(s) Supporting Document(s) C reactive protein [Mass/volume] in Serum or Plasma 33.1 mg/L <8.[address] [facility] ID Date Data Source [id number] 06/28/2019 04:04:33 PM [facility] XR CHEST FRONTAL ONLY [id number] RESULTI nterpreted by:Debbi Candelaria [facility]: Exam: XR Chest, 1 View Exam [...] rce(s) Supporting Document(s) ID Date Data Source [id number] 06/28/2019 08:51:02 AM [facility] Name Value Range Interpretation Code Description Data Chhaya rce(s) Supporting Document(s) ED Provider Note [facility] HPAPLd1bQkFZUaZs16/PUCumRLWib1QeRFeoAFs5RBmlQNNlI4FwLAZ1hO3hLNE4RIaSLxFpFyDbCCCc lbm [file] XSANCj4+TWshiLPjzSijCWDCRjs7EeMvEUxqGFCFSu2H ID Date Data Source [id number] 08/22/2019 08:54:18 AM [facility] Service Cmnt XXX-Imp : ANTERIOR MANDIBLE Acid fast Stn XXX : No Acid fast bacilli seen on Fluorochrome stain.Microorganism XXX Cult : No growth (qualifier value) Name Value Range Interpretation Code Description Data Chhaya rce(s) Supporting Document(s) ID Date Data Source [id number] 07/25/2019 09:47:22 AM [facility] Service Cmnt XXX-Imp : ANTERIOR MANDIBLE Microorganism XXX Cult : No growth (qualifier value) Name Value Range Interpretation Code Description Data Chhaya rce(s) Supporting Document(s) ID Date Data Source [id number] 07/03/2019 11:22:13 AM [facility] Service Cmnt XXX-Imp : ANTERIOR MANDIBLE Microorganism XXX Cult : Three (3) colonies ofPropionibacterium acnes (organism) Name Value Range Interpretation Code Description Data Chhaya rce(s) Supporting Document(s) ID Date Data Source [id number] 07/02/2019 08:33:14 AM [facility] Service Cmnt XXX-Imp : ANTERIOR MANDIBLE Microorganism XXX Cult : 2Aggregatibacter aphrophilus (organism)Staphylococcus epidermidis (organism)No growth on solid media, growth from broth only.(NOTE)Called to and read back by Aaliyah Ray 06/29/19 at 10:35am by Name Value Range Interpretation Code Description Data Chhaya rce(s) Supporting Document(s) ID Date Data Source [id number] 08/22/2019 08:54:18 AM [facility] Service Cmnt XXX-Imp : R MANDIBLE SYMPHY SISAcid fast Stn XXX : No Acid fast bacilli seen on Fluorochrome stain.Microorganism XXX Cult : No growth (qualifier value) Name Value Range Interpretation Code Description Data Chhaya rce(s) Supporting Document(s) ID Date Data Source [id number] 07/25/2019 09:47:22 AM [facility] Cmnt XXX-Imp : R MANDIBLE SYMPHY SISMicroorganism XXX Cult : No growth (qualifier value) Name Value Range Interpretation Code Description Data Chhaya rce(s) Supporting Document(s) ID Date Data Source [id number] 07/02/2019 11:51:26 AM [facility] Cmnt XXX-Imp : R MANDIBLE SYMPHY SISMicroorganism XXX Cult : No anaerobes isolated Name Value Range Interpretation Code Description Data Chhaya rce(s) Supporting Document(s) ID Date Data Source [id number] 06/30/2019 11:17:18 AM [facility] Cmnt XXX-Imp : R MANDIBLE SYMPHY SISGram Stn XXX : No WBC's or organisms seen.Microorganism XXX Cult : One (1) colony ofAggregatibacter aphrophilus (organism) Name Value Range Interpretation Code Description Data Chhaya rce(s) Supporting Document(s) ID Date Data Source [id number] 08/22/2019 08:54:18 AM [facility] Service Cmnt XXX-Imp : R MANDIBLE SYMPHY [...] rce(s) Supporting Document(s) ID Date Data Source [id number] 07/25/2019 09:47:22 AM [facility] Service Cmnt XXX-Imp : R MANDIBLE SYMPHY SISMicroorganism XXX Cult : No growth (qualifier value) Name Value Range Interpretation Code Description Data Chhaya rce(s) Supporting Document(s) ID Date Data Source [id number] 07/01/2019 08:56:52 AM [facility] Service Cmnt XXX-Imp : R MANDIBLE SYMPHY SISGram Stn XXX : 3WBC'S Seen.No organisms seenMicroorganism XXX Cult : 2Aggregatibacter aphrophilus (organism)Two (2) colonies ofStaphylococcus epidermidis (organism) Name Value Range Interpretation Code Description Data Chhaya rce(s) Supporting Document(s) ID Date Data Source [id number] 07/02/2019 10:16:56 AM [facility] Service Cmnt XXX-Imp : R MANDIBLE SYMPHY SISMicroorganism XXX Cult : No anaerobes isolated Name Value Range Interpretation Code Description Data Chhaya rce(s) Supporting Document(s) ID Date Data Source [id number] 06/27/2019 02:18:05 PM [facility] Name Value Range Interpretation Code Description Data Chhaya rce(s) Supporting Document(s) [facility] YLNUVu9kCwMOOhCp16/KMYaxODAlj7ByDIqeDZk2IJiuMVGhY3TqVGG2tJ0mKOK1THxQUxOvIbBbAWNd [facility] [file] ICAgICAgICAgICAgICAgICAgICAgICAgICAgICAgICAgICAgICAgICAgICAgICAgICAgICAgICAgICAg ICAgICAgICAgICAgICAgICANCiAgICAgICAgICAgICAgICAgICAgICAgICAgICAgICAgICAgICAgICAg ICAgICAgICAgICAgICAgICAgICAgICAgICAgICAgIC AgICAgICAgICAgICAgICAgICAgICAgICAgICANCiAgICAgICAgICAgICAgICAgICAgICAgICAgICAgIC AgICAgICAgICAgICAgICAgICAgICAgICAgICAgICAgICAgICAgICAgICAgICAgICAgICAgICAgICAgIC AgICAgICAgICANCiAgICAgICAgICAgICAgICAgICAg ICAgICAgICAgICAgICAgICAgICAgICAgICAgICAgICAgICAgICAgICAgICAgICAgICAgICAgICAgICAg ICAgICAgICAgICAgICAgICAgICANCiAgICAgICAgICAgICAgICAgICAgICAgICAgICAgICAgICAgICAg ICAgICAgICAgICAgICAgICAgICAgICAgICAgICAgIC AgICAgICAgICAgICAgICAgICAgICAgICAgICAgICANCiAgICAgICAgICAgICAgICAgICAgICAgICAgIC AgICAgICAgICAgICAgICAgICAgICAgICAgICAgICAgICAgICAgICAgICAgICAgICAgICAgICAgICAgIC AgICAgICAgICAgICANCiAgICAgICAgICAgICAgICAg ICAgICAgICAgICAgICAgICAgICAgICAgICAgICAgICAgICAgICAgICAgICAgICAgICAgICAgICAgICAg ICAgICAgICAgICAgICAgICAgICAgICANCiAgICAgICAgICAgICAgICAgICAgICAgICAgICAgICAgICAg ICAgICAgICAgICAgICAgICAgICAgICAgICAgICAgIC AgICAgICAgICAgICAgICAgICAgICAgICAgICAgICAgICANCiAgICAgICAgICAgICAgICAgICAgICAgIC AgICAgICAgICAgICAgICAgICAgICAgICAgICAgICAgICAgICAgICAgICAgICAgICAgICAgICAgICAgIC AgICAgICAgICAgICAgICANCiAgICAgICAgICAgICAg ICAgICAgICAgICAgICAgICAgICAgICAgICAgICAgICAgICAgICAgICAgICAgICAgICAgICAgICAgICAg ICAgICAgICAgICAgICAgICAgICAgICAgICANCjw/zGGaG0sezDRhkzC6P4omTr1RNd2RSJ8cp5CpUMGg RLqlyzJlWyqQOaYiENEgJxwANxd1OEmjST3KvEPtA7 NpQ9InGRpsXV5GDHXzWGHhwNCdNCTaFULxCzL4WMHnDVzoPE1WuAMwZMzjMZUdPXMuFjRkNHFvYRVjRG VsWFIsYETXTX9NDpXlK2CrlW20NUVSUq8+CEeylyQcAdqGJyI2MVBfx6ReONw1MC7KOCMjPulrj6BsOo ufQDAHWKnqEM4UDQY6DWR1OHLcSj5BKYOeJ154ykIl IF4PXa0REbSvNY2gym3BRwjwFNXyDrzWBxl6MOayPF8JhGYjYTfJn51hrAd7npJeyNJKaVDtVBKwI9Nu hUXgWPNyhbGrCF3MMJL8XDKqQJ0nQRCqERY7JmO4SFBCUC2KPIDvIATjkRKdAIHhDILCIK6IWSqtGPE9 WHOeovSbyWEiYEitOI9MLPWzjaJpKtdyIVUBXMo+Pg 2CJH0dd7UhCAmqOYLgHU6clb6ZMQrRPhFoP5D0oXQxC6P4BLwbSb8VTXJkYTMeXlBiOETOHLglJQ4AZL 6eozO4LT7UiPQvYCGvHZXflNJkXAg4F76sgHXpZIdrZW2DVDK+Harry+Dx1OILGkKHNaEIGmJyShSBHJLn GyF1BvM9AXd6RiK5SrLK41gUkrrrKfNZcvEW6CWV1w DXIeKYENUJ5DnNAwkB2alwXxILJzEOGLWbQoP94cfFCxDGNiGYX1IAHeOd6CAWJuD3PflsYvwCalllZn CVSeARHDMU1IPHsbziJczPPreXicWW82bQobPK1TSl1RCjGoGK6wbg9UxUJdUp7PQAJnMG0VVUExHORc EBAeGIJ5VUPeIlEcPAnxBYIfOLGlOQJ7VUBkJWGgIQ 8VCsXgMFMgUic1MVSsWGLuLFFpxf2WXGQeOVLdNBAgGKDnOTBfVCHaVJgaCNAoTWJiLWZ9ROOnOKTlVS 2NXoOjTGUhFLG7CLYmRSZuJRTiki4UHCSeZOUgXpe5ZODmAFVjVDWsCCyrMCOqGWF0LRejUAZeWNWzAX 5DCuQbBDExRCVmPSSvDBBtAPRdic7HJLZvKPYtWXW5 QSRrZTBkSZAqUVejHCTsTDJ5QftjNHWzVKDnDF2RFwLjGYCuDDKyMuVvXYUuMOIinl9AJUFyLSEqKuB0 PaIwRKLbNUPwCAnoLRXrHEStEyM8LJAwQZYlAU2BYiFrPZKnEVL6WuDpGDFtKXMwhm8DMCWlWKGrWgpw MgQkOLFoGQCzEAinQPOzUSQ1Bdg3BQLbUCBpDE4KCy QoMQAsOLJ5JxejBPYyIZRyse5VLPFtYBPpCCE8BiVbIZPhWZZdFWuiZOUuBCZ7NGRjQDKqYZFuDR5RDn CvXEQqYlT1QfmtGMBbQAKwsf8WJQFeYHPuAym5UYRaPHMxSLZyQWecPTVjDSN6ClY5UIMyTIHiTA9JDq EhSPShRhklVeBoEXLzHGXese2UGYRzHRZkSAOcWwNk NIUxRHZfEHuhJNIlNMX0EFz5IHZqAHQnKC1TJcSyQTHvUoy7XdDiPAHgPCKqis3HMJBhFLHcROP2WSUk OONsMUAaMMyiWBCsYZUxYYW9PRNjULCyZS6JWmOkUJGqKlD3ZImyHITmBLAsuc1JDYYhALDyTRw7WQSt ACWzEGPrWJd7lwRlzUTnFWo0MU3PF6PafnNzXuRBDi 4Nu470YIKcPYVuWl1PX2lrNb4zEUZhETGNCe5BMNx6CCHaFmVqZBwvBktoQnS8MXu9KrJvEZUrRURvPo M5MzU+ACy4PzW7TjF4PZOcZ0JsZYG8LFc3RvIpAwDdICXkVsdkYH8oLRYHWk5+DQpzdGFydHhyZWYNCj CdZGP1SBsyYRGCJy4T ID Date Data Source [id number] 06/27/2019 10:28:[address] [facility] Name Value Range Interpretation Code Description Data Chhaya rce(s) Supporting Document(s) Consultation [facility] JUWYQr5jRpHJRmYp72/VQVjcSZAzi7VtYOnyCXg4ZLdfYIUsM2LtSJB8lV7gUNH1XWyRKrStQvXlLBVp lbm GzAeeQWqZxAFPyApcURqRgTYogYffaiMYhOF9FvBX1NCTpV23gIMHsMHMaF9PwWHE4FoJ+Pb5JEZYatB SySU7SYucY3Y7tc1oVNy6+jN9F9s63dOPua3/62xmafstKVrDjeCD6UkR3qsvZodigcflv4/u5Q8k6SB n7hoGVQEnM5ZV4ElEjep1tgdpstpoA3m//BYdJFIZh CZhvSnZJGSx4fC//EtSnMVqdVn/OOuJG6GLOs/OMAR/ODq1hn6AELE65DUmb2LLQvWg0F53dSDEquARXyv [file] K2JWwnCFSJEa4P ID Date Data Source [id number] 06/27/2019 07:02:18 AM EST [facility] Name Value Range Interpretation Code Description Data Chhaya rce(s) Supporting Document(s) Progress Note [facility] YXQRWf8tWhDKUqEn09/NKMvqSSCbd0NqCJkjEHa5SGnvTLQpO9GaUDL2xZ7fVQS4VTcMNjMnNyGgRTRr lbm [file] MzU+EY6wTJk+El4Me3QzyfE7vaRoAIssALXmEv0XVOGTE2IAHj== ID Date Data Source [id number] 06/27/2019 05:47:[address] [facility] Name Value Range Interpretation Code Description Data Chhaya rce(s) Supporting Document(s) Progress Note [facility] TYHABr2pYkLSSxJa11/DFKazATKjv7FsKBcoUXy3IHqqMDQaK7TrVXF0aC4iGRW2UBoICjRrHyGrSAFe lbm KlBodXPgHpRAEcVwtXNdRyUBalJwbugOInMI6StSS0VOEcP56tUEGiGBPcZ3MkOGW8WCQ+Cy5ITHKboS GoYR0GWmsP9JwwYbtXNS9r5W4yJtNVPWkNlF+9THIRyZjD39XRlBuSF4PzeVP2Byt/38m88vO4YP6OLQ PQJg/100fq36a0sIuZgei/q0Vf0XTF1iy/5mOcSnYz Yz//zWgrpUmy8512MeLClBCcWzdjGjB+IxH1kSavdKfmnNiuK1orlIBemAvho7IV1P9c/sWEUnbFwqKE JqrQtERaV+oONA1sBRYVskdKVmj8BSFDgY62jMpVPNwsC5EiQyCuBxA0SbVnQDZlmRfI8gybyMplfyYg je8fNlpRwkmiXWlRtaGB7bOxFh5N8hXMQ4FgTOwHQE vjcPXMKQoCdniUVgDHe1kauOmkG3QuLzKnwERpUVwfo1IOeYSogdgRyYNvg5lp34AqpOcHE3hG/xhDaR pRm+PT7PVz4y0VN9xfJQ/YQD6H2RNuMzyE6S1cwWmD93xAT9YkKdAvx9YrhPbceR8FnZ56YdsIbbFtDe tDhlrJIdX/lU1eqGJmlV2iYW4I/uXZF71584z3xnvW R50yBHnRwe6SqvOtxRsowd0EKG+dureOk6sBUX5W3ijlS+JqBW5VDfw6GlJfXWHBLhZlXsEr+IENhsE5 oAILqm9vWoNS55AxQwzP9SbqvVdlKc2S9UyMxhDY21D08dqpQieMWJNZg86WAmaaaafhwwR4J2KkpFDb rgRZgGLoDz8O840Z873FdEc4Lgo+wIo+kIK0dupXwa OPT8kmGkUCXdKXSxRISa5dtWvBfSNeMyROS0+sxrxgeMd0EuYE40tEjw/pyFsnmDtqxhUti1YrNVwXl2 HlUIG5vJvlMMRLiq3bl/Howard+Goekm9vttwxctY/SDW1+OmwwZX/fen/U/fEy0w1g8ytc+gdE9aSvqHrb [file] ICAgICAgICAgICAgICAgICAgICAgICAgICAgICAgIC AgICAgICAgICAgICAgICAgICAgICAgICAgICAgICAgICAgICAgICAgICAgICAgICAgICAgICAgICANCi AgICAgICAgICAgICAgICAgICAgICAgICAgICAgICAgICAgICAgICAgICAgICAgICAgICAgICAgICAgIC AgICAgICAgICAgICAgICAgICAgICAgICAgICAgICAg ICAgICAgICANCiAgICAgICAgICAgICAgICAgICAgICAgICAgICAgICAgICAgICAgICAgICAgICAgICAg ICAgICAgICAgICAgICAgICAgICAgICAgICAgICAgICAgICAgICAgICAgICAgICAgICANCiAgICAgICAg ICAgICAgICAgICAgICAgICAgICAgICAgICAgICAgIC AgICAgICAgICAgICAgICAgICAgICAgICAgICAgICAgICAgICAgICAgICAgICAgICAgICAgICAgICAgIC ANCiAgICAgICAgICAgICAgICAgICAgICAgICAgICAgICAgICAgICAgICAgICAgICAgICAgICAgICAgIC AgICAgICAgICAgICAgICAgICAgICAgICAgICAgICAg ICAgICAgICAgICANCiAgICAgICAgICAgICAgICAgICAgICAgICAgICAgICAgICAgICAgICAgICAgICAg ICAgICAgICAgICAgICAgICAgICAgICAgICAgICAgICAgICAgICAgICAgICAgICAgICAgICANCiAgICAg ICAgICAgICAgICAgICAgICAgICAgICAgICAgICAgIC AgICAgICAgICAgICAgICAgICAgICAgICAgICAgICAgICAgICAgICAgICAgICAgICAgICAgICAgICAgIC AgICANCiAgICAgICAgICAgICAgICAgICAgICAgICAgICAgICAgICAgICAgICAgICAgICAgICAgICAgIC AgICAgICAgICAgICAgICAgICAgICAgICAgICAgICAg ICAgICAgICAgICAgICANCiAgICAgICAgICAgICAgICAgICAgICAgICAgICAgICAgICAgICAgICAgICAg ICAgICAgICAgICAgICAgICAgICAgICAgICAgICAgICAgICAgICAgICAgICAgICAgICAgICAgICANCiAg ICAgICAgICAgICAgICAgICAgICAgICAgICAgICAgIC AgICAgICAgICAgICAgICAgICAgICAgICAgICAgICAgICAgICAgICAgICAgICAgICAgICAgICAgICAgIC AgICAgICANCjw/qNZwP9htzAXufoZ0O8ijIz0SOt2JEX7ct8KbGBSfCXybufJqEjnLXuHpYUNfFaaGDd m9LLeqQU2IlRZeX5UfL9DlTQsxDC2KOYCbSPFvlZXu OEPoXEGgEtX8KGFhELwtAE4HeYRuJCskLYAsGIKdJR3GNZGfQ905dwBiTY5HGa7AGlFrMX2bxj9KMXUm SZThXqlLYlr4CLcfBH1LrAPzmRCsFJUaKGECUrMtL2tsf4EnJXTuJYJMHZmdFQ6Rl3BcsHDoLHe+Pg0K FQ7vv5EwUGviAAZqCI0ntf1ETUdIPhJeO9YyuEphYL Oho2kbVXVlXJ8osFXeCAG1ZFAhdaStGCXZJB0sxXSfkejlYn9gWUOnOX0qNY4eEBNhZSY4LlIuWRNUSE 3UXSOaLGEntFUsUIGcFFUCTV5ZREgcJUS3MIGzvhRylFYqIOzcQR6CEWWwfxDlQWAeEFYGKZj+Pg0KZW 6dd4YzYEvsMdRaIG4jyp9UOSySCvFaJ3I7uTNhE4I9 ZLisYg6AYJAwEBQuFFUkIJQAFBfvJL9RCQ1dmaH2EV7RpKIiDREeTGDupGJdPOz9O56rxVVfQTiaRM0M ICA+Harry+Sx7WNCZdPXSbAORdJyRyMIAMEeAqO6PdM4JLr5AoG8SuTJ77wGultmFiZBjbIY4VSE1hBTWl UGQVJG1HhNYtrT1cezRbWBBjCQOAZwEpB91cwWSiFF NkYSHlLWUxJm7JCWBjJ5ZkocJywIbmytUnNLCtECQUAE9XEHeombZkkYRybDoqFI03wDtmQG2OVy8TEp JrIW1bxs8UvQFzLn9ONEGdRl0WRIMaIAFhCKRrCKD1BZHwVoToSLwjBNDdCZCvBUG9UQOdXPTmDY2YSd RsQQDxDVI5MNBtSUKuVYQhea1VNXXfEPWaWgEdZnGw KFRyATZwGJhcKHUcUPYqEXS0NSTjINTpCE3LNzWzSMIiELQ2BNPjHPXxAQQiyb6AXDZuAAIkFTc9SmDy SVRoJNJbCGmeCDJiNCLlQWC4CUNnXRHgKY8YPuVdGBWeZOMdCSHiTECrPACkxd4XVUOwSLEsNpIuBPYj UUDbDKVsAOskCMDcSCZ0CPl5FPErFSFfZT5CAwXrVI AcIHUvKVHpXIRiZTVmwy1UTTZbQLZjQIG3TCEqUUBxALXdSUdlXIUxLGB2IIxiRCTcMQNpTW1VBfHlSX SsPLS1LdXqXSUrMSNnkt9SZEVxZVZlNeD3AMVpVCWgGMGpQIetUNNjNLE9YgPqUAOcWIStCR4USfHgDQ njTPTKSxo9NWkxA6f9WNJpYy0YA7Ckn4QzUXZeSMGW DJjkXB8tweJeKCMyIj4FR7wOBfuyCoSaORIqSCT6RKYdQzj4UvV4MUZsQWghRhOlGiZ4Xx2fIBAsZfA6 WBF1Vhu7CfP9KVMiVBA3EdErAYMmIFJxHsu6HqAgOY8CZz1EAqE1APZ9cGKwIs0QLte1GJ8GGESOM5KF Cg== ID Date Data Source [id number] 06/27/2019 02:35:08 AM [facility] Name Value Range Interpretation Code Description Data Chhaya rce(s) Supporting Document(s) Progress Note [facility] FZHEPs2hKdNLOgKp74/KDQyjOYPsf7OgUWyzARe0PQxsANXnZ1ZlHPJ3mH3rPAP2FQnGCdSrLsImHESs lbm [file] JEf3EXNOZktKk/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/ptDtuZnRiZm2GRrQqfpBMUPccF+8/dbXGRgYApE9y3UDN0xvKJJfqWMZ7R15r7h [file] YzM+NS7gINm+Cq2Nr7OcfoP0tvBsHXn7Cpo3XJeaDKGZRo6M ID Date Data Source [id number] 06/26/2019 01:15:07 PM [facility] Name Value Range Interpretation Code Description Data Chhaya rce(s) Supporting Document(s) Progress Note [facility] CBYTIk3qFcRDAmKk66/MWKakTQDox6GuKPieWNc8VZcjPBKvH4MxZQP6sF6pPTE5HSoEAtOzMiOzPLK0 lbm [file] 6Mv6DdjnF9dwLaSXlzVHW8VJ9XUXQQP6VEVk== ID Date Data Source [id number] 06/26/2019 01:14:27 PM [facility] Name Value Range Interpretation Code Description Data Chhaya rce(s) Supporting Document(s) Progress Note [facility] DFNRQm9lTtRPJwRv86/VHWbnCUVgj3NuNUujJSq6FDzlPAKoS9KeGSE2lW3kCAL4EQrXZjLdBoVjRSX8 lbm [file] AgICAgICAgICAgICAgICAgICAgICAgICAgICAgICAgICAgICAgICAgICAgICAgICAgICAgICAgICAgIC AgICAgICAgICAgICAgICAgICAgICAgICAgICAgICAgICAgICAgDQogICAgICAgICAgICAgICAgICAgIC AgICAgICAgICAgICAgICAgICAgICAgICAgICAgICAg ICAgICAgICAgICAgICAgICAgICAgICAgICAgICAgICAgICAgICAgICAgICAgICAgDQogICAgICAgICAg ICAgICAgICAgICAgICAgICAgICAgICAgICAgICAgICAgICAgICAgICAgICAgICAgICAgICAgICAgICAg ICAgICAgICAgICAgICAgICAgICAgICAgICAgICAgDQ ogICAgICAgICAgICAgICAgICAgICAgICAgICAgICAgICAgICAgICAgICAgICAgICAgICAgICAgICAgIC AgICAgICAgICAgICAgICAgICAgICAgICAgICAgICAgICAgICAgICAgDQogICAgICAgICAgICAgICAgIC AgICAgICAgICAgICAgICAgICAgICAgICAgICAgICAg ICAgICAgICAgICAgICAgICAgICAgICAgICAgICAgICAgICAgICAgICAgICAgICAgICAgDQogICAgICAg ICAgICAgICAgICAgICAgICAgICAgICAgICAgICAgICAgICAgICAgICAgICAgICAgICAgICAgICAgICAg ICAgICAgICAgICAgICAgICAgICAgICAgICAgICAgIC AgDQogICAgICAgICAgICAgICAgICAgICAgICAgICAgICAgICAgICAgICAgICAgICAgICAgICAgICAgIC AgICAgICAgICAgICAgICAgICAgICAgICAgICAgICAgICAgICAgICAgICAgDQogICAgICAgICAgICAgIC AgICAgICAgICAgICAgICAgICAgICAgICAgICAgICAg ICAgICAgICAgICAgICAgICAgICAgICAgICAgICAgICAgICAgICAgICAgICAgICAgICAgICAgDQogICAg ICAgICAgICAgICAgICAgICAgICAgICAgICAgICAgICAgICAgICAgICAgICAgICAgICAgICAgICAgICAg ICAgICAgICAgICAgICAgICAgICAgICAgICAgICAgIC AgICAgDQogICAgICAgICAgICAgICAgICAgICAgICAgICAgICAgICAgICAgICAgICAgICAgICAgICAgIC SoJKBnVMKmPRCjYWMlWQWjYQEbTWHgDCIaRLSgDZCmNZGjWSItYWCbBEKvIJBhVEd4I9enPMDoTGHrBO 8tVNx2Ah4+PSvJTaDjUDF8tgJjiS8APS1ah7AeXCba BVXxu6WbHZy2TZ0BRJXlMIfeVN2CRDmsmo0XNODiDSVqgHKOs0euTnAzHUX6EDTnWnuuGX3RSSIoB5yx cbHxEDVbFLUPPP6XCxGoK1KnrO75QLHGSy6+BLyzzpMrDskIEqQ6ZFOai1TqTZv3AA1EQJRbLxblj2Jr VrLkLLKEMPquWV6YJPX5BYFfVRVbKu9KWORkL737te PiGK3ACx2YHnJhOH3nua0ZCrIdZWZeSlrZYsi1LOwfQE9OnWTyGQrLqk4ijmCorzSYe3HcugTjiJIObx ncKDMJoUN5v4NcnY37MDocEyKYYBA9FGUoHO5xSKNlXTVpWuEnSZIVQG9IRTRjJBYayBHsHSYlVCCYOW 9OXYqgWOU6QCPwkxHdtNXxYIapNB9TXHBawbEiXOsk MCBSDQo+Io9PWJ4ep4EjDLqkCMWcFF3ohm0JNNtEOnHtX6B8wEJdJ9J1LRpzKz0TVJQtZAKgFPhuJZRN FMbkMA8GNH5uncG1QJ6WgIDjKZSvFAEcmVShTCx8C45pnKGcRKcqMZ8NGMW+Harry+Ul9JLPXmHZFwANVk UgNzETTGKbRfD8GoT9GBj3GjT2LoYE62qMzintKwOO iyMH8LBL2jZODcNFIUIK7WpALwjW2hdyNsIUJuXYLOVgSvR26paHZkQJNtHIK1CZHhPv4ZRAWtM0Ddad YrgArugeFkDCRtWCQGDH3HIJgkabYirKIbkNgkLW67yDhlHH7HOs1EKoJfDV9eah8HcJHrLz7KFRSxAb 2VFVPlYWKxSHQmUNP5KGBmRmIcQJghWSIzITEbYIU7 HRDhRNXtDN1FKxEkGIQmWLjdDhmiAUYbFTWuoj4FZHEvKAGuUYh8MzVtPHPoGWBwNVyqRGGdIUUmIXJ7 UIRdBFJaOW7TQaFcQOWhVYTzCjLpXOGuRXSmde4VUUFyQCIjOuV3ZRYsOMCcPHMkKJkrGZOdTRR8TbA3 JQNqICEeNE2HMoPzVDQuJLH0MdWxBOSxABSxlo7FUE RyDHDnMJTfKhYvGCZhIGLoKTdcYJCsBAH1MXrcVRJeDNKpVU1VQiEzPWXmJNM9ByVeHRGdXGAbai4OHI QkRNBfWRl7XQUkTGYkRIPdHVayVLEdHRI5GmK0HSYuIXViNJ1QWbNeTNMtSGk0QnNmFVKnUPCqlb5GIN DqDPYxQof3RsHmVITtBPNaLJplQPIbFEQ5FHSfMULl ONAoWZ2LPvVkEKCrOVkeULqyGNVjPRMclg3XUDEaLNKsNBD2KvHaAXClHQDxFSrnJINgJYAmWEx6WRBh VCEoHA6FKaHmNGHaNlSqTsMsZIXuKLZrcv2VTXObGVDnDRRlCILmLHPiQDDcGFg9cfVsdTFhYTp7KC1V K3ZmgkSzZiJDFv8Bw162TWTeHSZbBb1TZ8uzCc6sKV LmHOUCQz8ZXAs9ZdZ9YYCqFHW6YpInGNG3DmClAVGvOvF0QfnbMKshYPD+AMi1IYb6C6DmUwl2DYMvSP n8YEIpGBF0QkJhMXJ0WUQ2Mu6sOHTUFf7+SUxebWHaqPqiBYCJAaPdGBUuUFacMCMMAj8S ID Date Data Source [id number] 06/26/2019 12:08:10 PM [facility] CT MAXILLOFACIAL WITH CONTRAST [id number] L RESULTInterpreted by:Pat Mathew MDCLINICAL INDICATION: 39-year-old [...] rce(s) Supporting Document(s) ID Date Data Source [id number] 06/26/2019 11:55:22 AM [facility] Name Value Range Interpretation Code Description Data Chhaya rce(s) Supporting Document(s) [facility] MPOJXh4gEsWEWkUcs0YdWcZoUHTiRR8rcfb3G5C0hSQpL5JrmYQod3nlC4AdD3TpDYLaDOHEFO2YgQFf jb2 [file] YgtcI7wdY36BLE7ewZTXTB/t8ejHGvF56GubK728cGPSV0iKkinjkKJyBjHLdPDc+4n+vp analysis+jh0o6tfGo e+UJj2WiJ3s8y8UWg0tnoJoXYn2queHHxyzp0uqXrI pEbsnCAdDuHrXJTYNZOStxJUUvmneC2NL0mbam4AWyphxeQ0avq03KW7G9aVkIIrjfy7hPBXwi/4ysVl krvzwX6d2/D6ovzOIRDlrD9/jSegXLpFrgprc9i/JO8j9D3K9biFai9+UySQh0WZN0Rtgsw/mBsGZ8pY 3Sv600miDmZHb0JdNbqP+L+FTh+MzHmvVODvntNX8s t32xB1S800/XwjNgUye+lfQnBlX/nzrx/Vm+q8QoSh4CCbuw1ignmKo4Xm80J0BVA/VGP0X5Do8JR2Xp 2XdcJAW3ZP/gPEqmyzd79/6RdJzXzWU0TD6FBoYUNqdIyEX3OLLHwJVp5GMO28aIxDMPDy+HBgljMIVE ZXZUJQzfoXhJvx5O47RkhESvA+c5FelFAUBzCPE7oD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
[2020-07-02 16:15] LABS: ALBUMIN 3.8 GM/DL (3.2-5.2); ALT/SGPT 104 U/L (12-78); BILIRUBIN,DIRECT < 0.1 MG/DL (0.0-0.2); BILIRUBIN,TOTAL 0.2 MG/DL (0.2-1.0); LIPASE 276 U/L (73-393)
--- NOTE | 2020-07-02 16:30 | REP ---
INDICATION: fall, acute tenderness right side. COMPARISON: None TECHNIQUE: 100 cc Isovue 370 FINDINGS: The lung bases are clear. The liver, gallbladder, spleen, pancreas, adrenal glands, and left kidney are unremarkable. Seen arising from the anterior aspect of the inferior pole of the right kidney there is a 2.6 by 2 by 2 cm sized low-density structure which is smoothly marginated and has slightly higher than water density Hounsfield unit readings. Shows no evidence of contrast enhancement. The right kidney is otherwise unremarkable. The abdominal aorta and para-aortic regions are within normal limits. The bowel loops and the mesenteries are within normal limits. There is no free fluid or free air. There is no mass or adenopathy. Bone window technique throughout the examination shows the osseous structures to be within normal limits. IMPRESSION: 1. There is a simple Bosniak class 1 right renal cyst as described above. 2. There is no evidence of acute intra-abdominal or intrapelvic disease. Findings as described above. <Electronically signed by Jose D Chapin > 07/02/20 [id number]
[2020-07-02 16:42] LABS: MONO REFLEX EBV COMP NEGATIVE (NEGATIVE)
[2020-07-02 17:02] LABS: HEPATITIS B CORE ANTIBODY IGM NEGATIVE (NEGATIVE); HEPATITIS C VIRUS ABY INDEX < 0.0 INDEX (<0.8)
[2020-07-02 17:05] LABS: HEPATITIS A ANTIBODY IGM NEGATIVE (NEGATIVE)
[2020-07-02 17:28] LABS: HEPATITIS B SURFACE ANTIGEN NEGATIVE (NEGATIVE)
[2020-07-02] MEDS ORDERED: CYCL5TAB PO (17:31)
[2020-07-02 17:53] VITALS: BP 114/60
[2020-07-05 17:07] LABS: EBV AB TO NUCLEAR ANTIGEN 97.6 U/mL (0.0-17.9); EBV VIRAL CAPSID AG IgG >600.0 U/mL (0.0-17.9); EBV VIRAL CAPSID AG IgM <36.0 U/mL (0.0-35.9)
== END 2020-07-02 17:40 | disposition home or self-care (01) ==
LOC: M ED 13:32
DX: S63.91XA Sprain of unspecified part of right wrist and hand, initial encounter (principal); S60.211A Contusion of right wrist, initial encounter; S39.012A Strain of muscle, fascia and tendon of lower back, initial encounter; S20.211A Contusion of right front wall of thorax, initial encounter; W10.8XXA Fall (on) (from) other stairs and steps, initial encounter; Y92.9 Unspecified place or not applicable; Y93.9 Activity, unspecified; Y99.9 Unspecified external cause status; R06.02 Shortness of breath; R05 Cough; R11.2 Nausea with vomiting, unspecified; N28.1 Cyst of kidney, acquired; I10 Essential (primary) hypertension; J45.909 Unspecified asthma, uncomplicated; F17.200 Nicotine dependence, unspecified, uncomplicated; Z88.8 Allergy status to other drugs, medicaments and biological substances; Z79.899 Other long term (current) drug therapy
CPT/HCPCS: 36415; 71101; 72110; 73110; 74177; 80047; 80076; 83690; 85025; 86308; 86664; 86665; 86705; 86709; 86803; 87340; 96374; 99284; J1885; Q9967

== ENCOUNTER 2020-07-16 14:00 | Outpatient (RCR) | payer MEDICAID ==
[~2020-07-16 14:00] MED LIST: B-12100021 PO; CYCL5TAB PO; IBUP200C25 PO
== END 2020-07-18 ==
LOC: M OUTALCOH 14:00
PROVIDERS: ATTEND Psychiatry & Neurology Addiction Medicine
DX: F10.20 Alcohol dependence, uncomplicated (principal); F17.200 Nicotine dependence, unspecified, uncomplicated

== ENCOUNTER 2020-08-09 14:00 | Outpatient (RCR) | payer MEDICAID, OTHER | END 2020-08-15 | LOC: M OUTALCOH 14:00 | PROVIDERS: ATTEND Psychiatry & Neurology Addiction Medicine | DX: F10.20 Alcohol dependence, uncomplicated (principal); F17.200 Nicotine dependence, unspecified, uncomplicated ==

== ENCOUNTER 2020-08-22 00:31 | Emergency (ER) | payer MEDICAID, OTHER ==
[~2020-08-22] VITALS: Ht 182.9 cm; Wt 77.3 kg
[2020-08-22] MEDS ORDERED: ONDANSETRON 4MG/2ML VIAL IV ONE (01:20)
[2020-08-22] MEDS ORDERED: MORPHINE 4 MG/ML 1ML VIAL/SYRINGE (J2270) IV PRN (01:20)
[2020-08-22 01:39] LABS: BASO % 0.4 % (0.0-1.0); EOS # 0.2 10^3/uL (0.0-0.5); EOS % 2.6 % (0.0-3.0); HEMATOCRIT 42.9 % (42.0-52.0); HEMOGLOBIN 14.6 g/dl (13.5-17.5); LYMPH # 2.5 10^3/uL (1.5-5.0); LYMPH % 35.2 % (24.0-44.0); MONO # 1.1 10^3/uL (0.0-0.8); MONO % 15.2 % (2.0-8.0); NEUTROPHILS # 3.3 10^3/uL (1.5-8.5); NEUTROPHILS % 46.3 % (36.0-66.0); PLATELET COUNT, AUTOMATED 185 10^3/uL (150-450); RED BLOOD COUNT 4.29 10^6/uL (4.30-6.10)
[2020-08-22] MEDS: GASTROGRAFIN SOLUTION 30ML PO SCH ×2 (01:43→02:19)
[2020-08-22 02:35] LABS: ALBUMIN 3.6 GM/DL (3.2-5.2); ALT/SGPT 72 U/L (12-78); BILIRUBIN,DIRECT 0.1 MG/DL (0.0-0.2); BILIRUBIN,TOTAL 0.3 MG/DL (0.2-1.0); BLOOD UREA NITROGEN 8 MG/DL (7-18); CALCIUM LEVEL 8.5 MG/DL (8.5-10.1); CARBON DIOXIDE LEVEL 28 MEQ/L (21-32); CHLORIDE LEVEL 106 MEQ/L (98-107); CREATININE FOR GFR 0.66 MG/DL (0.70-1.30); GLOMERULAR FILTRATION RATE > 60.0 (>60); GLUCOSE, FASTING 89 MG/DL (70-100); LIPASE 177 U/L (73-393); POTASSIUM SERUM 3.4 MEQ/L (3.5-5.1); SODIUM LEVEL 141 MEQ/L (136-145); TOTAL PROTEIN 6.9 GM/DL (6.4-8.2)
[2020-08-22 02:36] LABS: ETHYL ALCOHOL (ETHANOL) 0.336 % (0.000-0.010)
[2020-08-22] MEDS ORDERED: ISOVUE-370 76% 100ML VIAL As Ordered ONE (02:58)
[2020-08-22] MEDS ORDERED: NAPR-837 PO (06:05)
[2020-08-22 06:10] VITALS: BP 102/63
--- NOTE | 2020-08-23 10:17 | REP ---
INDICATION: RLQ ABD PAIN. Repeat dictation: Preliminary report is provided at the time of the exam by hanh LARES. COMPARISON: Comparison CT study 02 July 2020.. TECHNIQUE: 100 mL of intravenous Isovue 370 is administered. Helical scanning is acquired and 3 mm axial images are generated. Coronal and sagittal MPR images are generated. Oral contrast was also administered. FINDINGS: Preliminary digital master ship radiograph is noncontributory. Axial CT images demonstrate that the lung bases are clear. There is mild diffuse fatty infiltration of the liver. Liver size is borderline with a midclavicular line vertical span of 16 0.2 cm. Spleen is normal in size homogeneous in texture. No focal hepatic lesion is seen. The gallbladder is unremarkable. Pancreas shows a normal appearance. The kidneys enhance symmetrically and are morphologically intact except for the presence of a cyst in the right kidney measuring 2.0 cm in greatest diameter. No adrenal lesion is observed. No retroperitoneal mass or adenopathy is seen. The urinary bladder is moderately distended at the time of scanning. No bladder calculus is seen. Seminal vesicles and prostate are unremarkable. No abdominal wall defect is seen. A normal appendix is seen in the right lower quadrant adjacent to the cecum. There are multiple air-filled loops of large and small bowel the central abdomen. No evidence of obstruction. Question mild ileus. There is no evidence of free air or abnormal fluid collection. No bony destructive lesion is seen. IMPRESSION: Mild diffuse fatty infiltration of the liver. Borderline liver size. Question mild ileus. No evidence of obstruction. Urinary bladder distension. Normal appendix. Otherwise negative. <Electronically signed by Js Ceballos > 08/23/20 [id number]
== END 2020-08-22 06:15 | disposition home or self-care (01) ==
LOC: M ED 00:31
DX: R10.9 Unspecified abdominal pain (principal); F10.129 Alcohol abuse with intoxication, unspecified; K76.0 Fatty (change of) liver, not elsewhere classified; R11.2 Nausea with vomiting, unspecified; R19.7 Diarrhea, unspecified; F17.200 Nicotine dependence, unspecified, uncomplicated; Z88.8 Allergy status to other drugs, medicaments and biological substances; Z79.899 Other long term (current) drug therapy
CPT/HCPCS: 74177; 80048; 80076; 82077; 83690; 85025; 93041; 96374; 96375; 99285; J2270; J2405; Q9963; Q9967

== ENCOUNTER 2020-09-06 14:00 | Outpatient (RCR) | payer MEDICAID ==
[~2020-09-06 14:00] MED LIST changes: +NAPR-837 PO
== END 2020-09-15 ==
LOC: M OUTALCOH 14:00
PROVIDERS: ATTEND Psychiatry & Neurology Psychiatry
DX: F10.20 Alcohol dependence, uncomplicated (principal); F17.200 Nicotine dependence, unspecified, uncomplicated

== ENCOUNTER 2021-06-01 14:04 | Outpatient (RCR) | payer OTHER | END 2021-06-17 | LOC: M OUTALCOH 14:04 | PROVIDERS: ATTEND Psychiatry & Neurology Psychiatry | DX: F10.20 Alcohol dependence, uncomplicated (principal); F17.200 Nicotine dependence, unspecified, uncomplicated ==

== ENCOUNTER → 2021-08-01 | Outpatient (CLI) | payer OTHER | LOC: M OUTALCOH 09:58 | PROVIDERS: ATTEND Psychiatry & Neurology Psychiatry | DX: Z02.89 Encounter for other administrative examinations (principal) ==

== ENCOUNTER → 2021-09-15 | Outpatient (RCR) | payer OTHER | LOC: M OUTALCOH 08-19 13:32 | PROVIDERS: ATTEND Psychiatry & Neurology Psychiatry | DX: F10.20 Alcohol dependence, uncomplicated (principal); F17.200 Nicotine dependence, unspecified, uncomplicated; F12.20 Cannabis dependence, uncomplicated ==

== ENCOUNTER → 2021-10-03 | Outpatient (CLI) | payer OTHER | LOC: M OUTALCOH 08:22 | PROVIDERS: ATTEND Psychiatry & Neurology Psychiatry | DX: Z02.2 Encounter for examination for admission to residential institution (principal) ==

== ENCOUNTER 2021-10-14 12:33 | Outpatient (RCR) | payer OTHER | END 2021-10-15 | LOC: M OUTALCOH 12:33 | PROVIDERS: ATTEND Psychiatry & Neurology Psychiatry | DX: F10.20 Alcohol dependence, uncomplicated (principal); F12.20 Cannabis dependence, uncomplicated ==

== ENCOUNTER 2021-10-21 16:00 | Outpatient (RCR) | payer OTHER | END 2021-11-15 | LOC: M OUTALCOH 16:00 | PROVIDERS: ATTEND Psychiatry & Neurology Psychiatry | DX: F10.20 Alcohol dependence, uncomplicated (principal); F12.20 Cannabis dependence, uncomplicated ==

== ENCOUNTER 2022-01-07 11:59 | Emergency (ER) | payer OTHER ==
[~2022-01-07] VITALS: Ht 182.9 cm; Wt 77.3 kg
[2022-01-07] MEDS ORDERED: CLON-412 (12:15)
[2022-01-07] MEDS ORDERED: ALBU8.5H (12:15)
[2022-01-07] MEDS ORDERED: FAMO1TAB11 (12:15)
[2022-01-07] MEDS ORDERED: FLUT1BLS2 (12:15)
[2022-01-07 12:26] LABS: BASO # 0.1 10^3/uL (0.0-0.2); BASO % 0.7 % (0.0-1.0); EOS # 0.2 10^3/uL (0.0-0.5); EOS % 1.6 % (0.0-3.0); HEMATOCRIT 41.9 % (42.0-52.0); HEMOGLOBIN 14.7 g/dl (13.5-17.5); LYMPH # 1.9 10^3/uL (1.5-5.0); LYMPH % 18.6 % (24.0-44.0); MEAN CORPUSCULAR HEMOGLOBIN 35.2 pg (27.0-33.0); MEAN CORPUSCULAR HGB CONC 35.1 g/dl (32.0-36.5); MEAN CORPUSCULAR VOLUME 100.2 fl (80.0-96.0); MONO % 9.8 % (2.0-8.0); NEUTROPHILS # 7.1 10^3/uL (1.5-8.5); PLATELET COUNT, AUTOMATED 262 10^3/uL (150-450); RED BLOOD COUNT 4.18 10^6/uL (4.30-6.10); WHITE BLOOD COUNT 10.3 10^3/uL (4.0-10.0)
[2022-01-07 12:58] LABS: CK-MB VALUE MASS 2.7 NG/ML (<3.6); MB/CK RELATIVE INDEX 0.95 (< OR =4)
[2022-01-07 13:02] LABS: ETHYL ALCOHOL (ETHANOL) 0.181 % (0.000-0.010)
[2022-01-07 13:05] LABS: ALBUMIN 3.9 GM/DL (3.2-5.2); ALT/SGPT 26 U/L (12-78); BILIRUBIN,DIRECT < 0.1 MG/DL (0.0-0.2); BILIRUBIN,TOTAL 0.3 MG/DL (0.2-1.0); BLOOD UREA NITROGEN 13 MG/DL (7-18); CALCIUM LEVEL 8.8 MG/DL (8.5-10.1); CARBON DIOXIDE LEVEL 22 MEQ/L (21-32); CHLORIDE LEVEL 114 MEQ/L (98-107); CREATININE FOR GFR 0.81 MG/DL (0.70-1.30); GLOMERULAR FILTRATION RATE > 60.0 (>60); GLUCOSE, FASTING 99 MG/DL (70-100); LIPASE 126 U/L (73-393); SODIUM LEVEL 145 MEQ/L (136-145); THYROID STIMULATING HORMONE 0.802 uIU/ML (0.358-3.740); TOTAL PROTEIN 7.3 GM/DL (6.4-8.2)
[2022-01-07 13:08] LABS: CK-MB VALUE MASS 2.7 NG/ML (<3.6); MB/CK RELATIVE INDEX 0.96 (< OR =4)
[2022-01-07] MEDS ORDERED: NS 1,000 ML IV ONE (13:20)
[2022-01-07] MEDS ORDERED: ISOVUE-370 76% 100ML VIAL As Ordered ONE (13:24)
[2022-01-07 14:34] VITALS: BP 127/78
== END 2022-01-07 14:40 | disposition home or self-care (01) ==
LOC: M ED 11:59 → EDBD 11:59 → M ED 14:40
DX: R07.9 Chest pain, unspecified (principal); F10.20 Alcohol dependence, uncomplicated; F17.200 Nicotine dependence, unspecified, uncomplicated; Z88.3 Allergy status to other anti-infective agents
CPT/HCPCS: 71045; 71275; 80048; 80076; 82077; 82550; 82553; 83690; 83735; 84443; 85025; 93005; 93041; 94760; 96360; 99285; Q9967

== ENCOUNTER → 2022-01-25 | Outpatient (REF) ==
[~2022-01-25] MED LIST changes: +ALBU8.5H; +CLON-412; +FAMO1TAB11; +FLUT1BLS2
== END ==
LOC: M PLAIMG 14:02
PROVIDERS: ATTEND Internal Medicine
DX: M25.562 Pain in left knee (principal); M54.50 Low back pain, unspecified; M51.36 Other intervertebral disc degeneration, lumbar region

== ENCOUNTER 2022-01-27 16:54 | Emergency (ER) | payer OTHER ==
[~2022-01-27] VITALS: Ht 182.9 cm; Wt 77.3 kg
[2022-01-27 18:40] LABS: BASO % 0.5 % (0.0-1.0); EOS # 0.1 10^3/uL (0.0-0.5); EOS % 1.6 % (0.0-3.0); HEMATOCRIT 42.4 % (42.0-52.0); HEMOGLOBIN 14.7 g/dl (13.5-17.5); LYMPH # 2.6 10^3/uL (1.5-5.0); MEAN CORPUSCULAR HEMOGLOBIN 35.1 pg (27.0-33.0); MEAN CORPUSCULAR HGB CONC 34.7 g/dl (32.0-36.5); MEAN CORPUSCULAR VOLUME 101.2 fl (80.0-96.0); MONO # 0.6 10^3/uL (0.0-0.8); MONO % 7.5 % (2.0-8.0); NEUTROPHILS # 5.2 10^3/uL (1.5-8.5); NEUTROPHILS % 60.3 % (36.0-66.0); PLATELET COUNT, AUTOMATED 209 10^3/uL (150-450); RED BLOOD COUNT 4.19 10^6/uL (4.30-6.10); WHITE BLOOD COUNT 8.6 10^3/uL (4.0-10.0)
[2022-01-27] MEDS ORDERED: ISOVUE-370 76% 100ML VIAL As Ordered ONE (18:42)
[2022-01-27 19:10] LABS: ALBUMIN 3.9 GM/DL (3.2-5.2); ALT/SGPT 36 U/L (12-78); BILIRUBIN,DIRECT < 0.1 MG/DL (0.0-0.2); BILIRUBIN,TOTAL 0.3 MG/DL (0.2-1.0); LIPASE 179 U/L (73-393); TOTAL PROTEIN 7.6 GM/DL (6.4-8.2)
[2022-01-27 19:11] LABS: ETHYL ALCOHOL (ETHANOL) 0.342 % (0.000-0.010)
[2022-01-27 20:30] VITALS: BP 119/71
== END 2022-01-27 22:43 | disposition home or self-care (01) ==
LOC: M ED 16:54
DX: F10.129 Alcohol abuse with intoxication, unspecified (principal); M54.50 Low back pain, unspecified; W10.9XXA Fall (on) (from) unspecified stairs and steps, initial encounter; F17.200 Nicotine dependence, unspecified, uncomplicated; Z88.3 Allergy status to other anti-infective agents; Z91.048 Other nonmedicinal substance allergy status; Z79.51 Long term (current) use of inhaled steroids; Z79.899 Other long term (current) drug therapy; Y99.9 Unspecified external cause status
CPT/HCPCS: 36415; 70450; 71260; 72125; 72128; 72131; 74177; 80047; 80076; 82077; 83690; 85025; 93005; 93041; 94760; 99285; Q9967

== ENCOUNTER 2022-09-08 10:48 | Inpatient (IN) | payer OTHER ==
[~2022-09-08] VITALS: Ht 182.9 cm; Wt 71.0 kg
[~2022-09-08 10:48] MED LIST changes: -ALBU8.5H; +ALBU8.5H INH; -CLON-412; +CLON-412 PO; -FAMO1TAB11; +FAMO1TAB11 PO; -FLUT1BLS2; +FLUT1BLS2 INH
[2022-09-08] MEDS ORDERED: NALT50TA4 PO (11:00)
[2022-09-08 12:49] LABS: BASO # 0.1 10^3/uL (0.0-0.2); BASO % 0.7 % (0.0-1.0); EOS % 0.3 % (0.0-3.0); HEMATOCRIT 46.1 % (42.0-52.0); HEMOGLOBIN 16.3 g/dl (13.5-17.5); LYMPH # 1.4 10^3/uL (1.5-5.0); LYMPH % 19.2 % (24.0-44.0); MEAN CORPUSCULAR HEMOGLOBIN 33.8 pg (27.0-33.0); MEAN CORPUSCULAR HGB CONC 35.4 g/dl (32.0-36.5); MEAN CORPUSCULAR VOLUME 95.6 fl (80.0-96.0); MONO # 0.8 10^3/uL (0.0-0.8); MONO % 10.6 % (2.0-8.0); NEUTROPHILS # 4.9 10^3/uL (1.5-8.5); NEUTROPHILS % 68.9 % (36.0-66.0); PLATELET COUNT, AUTOMATED 203 10^3/uL (150-450); RED BLOOD COUNT 4.82 10^6/uL (4.30-6.10); WHITE BLOOD COUNT 7.1 10^3/uL (4.0-10.0)
[2022-09-08] MEDS ORDERED: LORazepam 2 MG TAB PO PRN ×2 (12:50→23:10)
[2022-09-08 13:13] LABS: ACETAMINOPHEN LEVEL < 2.0 UG/ML (10.0-20.0); SALICYLATE LEVEL < 3.0 MG/DL (<30)
[2022-09-08 13:18] LABS: ALBUMIN 3.7 G/DL (3.2-5.2); ALKALINE PHOSPHATASE 121 U/L (46-116); ALT/SGPT 42 U/L (7.0-40); AST/SGOT 44 U/L (<34); BILIRUBIN,DIRECT 0.1 MG/DL (<0.4); BILIRUBIN,TOTAL 0.4 MG/DL (0.3-1.2); BLOOD UREA NITROGEN 12 MG/DL (9-23); CALCIUM LEVEL 8.7 MG/DL (8.5-10.1); CARBON DIOXIDE LEVEL 24 MMOL/L (20-31); CHLORIDE LEVEL 99 MMOL/L (98-107); CREATININE FOR GFR 0.71 MG/DL (0.70-1.30); GLOMERULAR FILTRATION RATE > 60.0 (>60); GLUCOSE, FASTING 160 MG/DL (60-100); SODIUM LEVEL 135 MMOL/L (136-145); THYROID STIMULATING HORMONE 0.761 uIU/ML (0.55-4.78); TOTAL PROTEIN 6.9 G/DL (5.7-8.2)
[2022-09-08] MEDS ORDERED: THIAMINE 100 MG TAB PO SCH (13:30)
[2022-09-08] MEDS ORDERED: MULTIVITAMINS/MINERALS THERAP 1 TAB PO SCH (13:30)
[2022-09-08] MEDS ORDERED: FOLIC ACID 1MG TAB PO SCH (13:30)
[2022-09-08 14:41] LABS: AMPHETAMINES LEVEL URINE NEGATIVE (NEGATIVE); BARBITURATES URINE NEGATIVE (NEGATIVE); BENZODIAZEPINES URINE NEGATIVE (NEGATIVE); COCAINE METABOLITE URINE NEGATIVE (NEGATIVE); METHADONE URINE NEGATIVE (NEGATIVE); OPIATES URINE NEGATIVE (NEGATIVE); PHENCYCLIDINE URINE NEGATIVE (NEGATIVE)
[2022-09-08 14:54] LABS: RSV AMPLIFICATION NEGATIVE (NEGATIVE)
[2022-09-08 14:55] LABS: CANNABINOIDS URINE POSITIVE (NEGATIVE)
[2022-09-08] MEDS ORDERED: NAPR500T6 PO (17:35)
[2022-09-08] MEDS ORDERED: MED REC COMMENT (17:35)
[2022-09-08] MEDS ORDERED: MIRT-11 PO (17:35)
[2022-09-08] MEDS: LORazepam 2 MG TAB PO SCH ×2 (18:57→23:07)
[2022-09-08] MEDS ORDERED: HOME MED LIST COMPLETE! XX SCH (19:15)
[2022-09-08 21:00] VITALS: BP_SYST 130; BP_SYST 131; BP_DIAS 81
[2022-09-08 23:31] VITALS: BP 131/84
[2022-09-08] MEDS: THIAMINE 100 MG TAB PO SCH (23:40)
[2022-09-08] MEDS: IPRATROPIUM 0.5MG/ALBUTEROL 2.5MG INH SOL UD 3ML (DUONEB) NEB SCH (23:41)
[2022-09-09 03:25] VITALS: BP 123/65
[2022-09-09] MEDS: LORazepam 2 MG TAB PO SCH ×2 (05:35→12:00)
[2022-09-09 06:10] LABS: HEMATOCRIT 45.1 % (42.0-52.0); HEMOGLOBIN 15.8 g/dl (13.5-17.5); MEAN CORPUSCULAR HEMOGLOBIN 33.6 pg (27.0-33.0); PLATELET COUNT, AUTOMATED 186 10^3/uL (150-450); WHITE BLOOD COUNT 10.6 10^3/uL (4.0-10.0)
[2022-09-09 06:47] LABS: ALBUMIN 3.4 G/DL (3.2-5.2); ALKALINE PHOSPHATASE 115 U/L (46-116); ALT/SGPT 44 U/L (7.0-40); AST/SGOT 54 U/L (<34); BILIRUBIN,TOTAL 0.8 MG/DL (0.3-1.2); BLOOD UREA NITROGEN 12 MG/DL (9-23); CALCIUM LEVEL 8.7 MG/DL (8.5-10.1); CARBON DIOXIDE LEVEL 30 MMOL/L (20-31); CHLORIDE LEVEL 103 MMOL/L (98-107); CREATININE FOR GFR 0.72 MG/DL (0.70-1.30); GLOMERULAR FILTRATION RATE > 60.0 (>60); GLUCOSE, FASTING 88 MG/DL (60-100); POTASSIUM SERUM 4.4 MMOL/L (3.5-5.1); SODIUM LEVEL 138 MMOL/L (136-145); TOTAL PROTEIN 6.4 G/DL (5.7-8.2)
[2022-09-09] MEDS: IPRATROPIUM 0.5MG/ALBUTEROL 2.5MG INH SOL UD 3ML (DUONEB) NEB SCH ×2 (07:38→13:05)
[2022-09-09 08:09] VITALS: BP 129/78
[2022-09-09] MEDS ORDERED: MULTIVITAMINS/MINERALS THERAP 1 TAB PO SCH (09:00)
[2022-09-09] MEDS ORDERED: FOLIC ACID 1MG TAB PO SCH (09:00)
[2022-09-09] MEDS: THIAMINE 100 MG TAB PO SCH (09:33)
[2022-09-09 12:02] VITALS: BP 132/91
[2022-09-09] MEDS ORDERED: ISOVUE-370 76% 100ML VIAL As Ordered ONE (13:45)
[2022-09-09 16:13] VITALS: BP 123/78
[2022-09-09] MEDS ORDERED: LORazepam 2 MG TAB PO SCH (22:00)
== END 2022-09-09 19:40 | disposition left against medical advice (07) | DRG 770 ==
LOC: M ED 10:48 → M ED INP 16:59 → ENRESERV 19:52 → M PCU 21:12
PROVIDERS: ADMIT Internal Medicine; ATTEND Internal Medicine
DX: F10.939 Alcohol use, unspecified with withdrawal, unspecified (principal); F17.200 Nicotine dependence, unspecified, uncomplicated; Z79.899 Other long term (current) drug therapy; Z88.8 Allergy status to other drugs, medicaments and biological substances

== ENCOUNTER → 2022-10-24 | Outpatient (REF) | payer OTHER ==
[~2022-10-24] MED LIST changes: +MED REC COMMENT; +MIRT-11 PO; +NALT50TA4 PO; +NAPR500T6 PO
[2022-10-24 17:48] LABS: BASO % 0.3 % (0.0-1.0); EOS # 0.1 10^3/uL (0.0-0.5); EOS % 1.6 % (0.0-3.0); HEMATOCRIT 42.5 % (42.0-52.0); HEMOGLOBIN 15.1 g/dl (13.5-17.5); LYMPH # 1.9 10^3/uL (1.5-5.0); LYMPH % 28.3 % (24.0-44.0); MEAN CORPUSCULAR HEMOGLOBIN 35.7 pg (27.0-33.0); MEAN CORPUSCULAR HGB CONC 35.5 g/dl (32.0-36.5); MEAN CORPUSCULAR VOLUME 100.5 fl (80.0-96.0); MONO # 0.7 10^3/uL (0.0-0.8); MONO % 10.3 % (2.0-8.0); NEUTROPHILS # 3.9 10^3/uL (1.5-8.5); NEUTROPHILS % 59.2 % (36.0-66.0); PLATELET COUNT, AUTOMATED 219 10^3/uL (150-450); RED BLOOD COUNT 4.23 10^6/uL (4.30-6.10); WHITE BLOOD COUNT 6.7 10^3/uL (4.0-10.0)
[2022-10-24 17:55] LABS: HEMOGLOBIN A1c 5.1 % (4.0-6.0)
[2022-10-24 18:02] LABS: ERYTHROCYTE SEDIMENTATION RATE 9 mm/hr (0-15)
[2022-10-24 18:04] LABS: APPEARANCE, URINE CLEAR (CLEAR); BACTERIA, URINE AUTO NEGATIVE (NEGATIVE); BILIRUBIN, URINE AUTO NEGATIVE (NEGATIVE); BLOOD, URINE BLOOD NEGATIVE (NEGATIVE); COLOR, URINE YELLOW (YELLOW); GLUCOSE, URINE (UA) AUTO NEGATIVE (NEGATIVE); KETONE, URINE AUTO NEGATIVE (NEGATIVE); LEUKOCYTE ESTERASE, URINE AUTO TRACE (NEGATIVE); NITRITE, URINE AUTO NEGATIVE (NEGATIVE); PROTEIN, URINE AUTO NEGATIVE (NEGATIVE); RBC, URINE AUTO 1 /HPF (0-3); SPECIFIC GRAVITY URINE AUTO 1.009 (1.002-1.035); SQUAMOUS EPITHELIAL CELL UR AU 0 /HPF (0-6); WBC, URINE AUTO 6 /HPF (0-3)
[2022-10-24 18:14] LABS: ALBUMIN 3.9 G/DL (3.2-5.2); ALKALINE PHOSPHATASE 138 U/L (46-116); ALT/SGPT 58 U/L (7.0-40); AST/SGOT 58 U/L (<34); BILIRUBIN,TOTAL 0.4 MG/DL (0.3-1.2); BLOOD UREA NITROGEN 6 MG/DL (9-23); CALCIUM LEVEL 8.8 MG/DL (8.5-10.1); CARBON DIOXIDE LEVEL 29 MMOL/L (20-31); CHLORIDE LEVEL 103 MMOL/L (98-107); CHOLESTEROL LEVEL 167 MG/DL (<200); CHOLESTEROL RISK RATIO 2.01 (<5); CREATININE FOR GFR 0.74 MG/DL (0.70-1.30); FOLATE 15.9 NG/ML (>5.4); FREE T4 1.07 NG/DL (0.89-1.76); GLOMERULAR FILTRATION RATE > 60.0 (>60); GLUCOSE, FASTING 77 MG/DL (60-100); POTASSIUM SERUM 3.5 MMOL/L (3.5-5.1); SODIUM LEVEL 137 MMOL/L (136-145); THYROID STIMULATING HORMONE 1.486 uIU/ML (0.55-4.78); TRIGLYCERIDES LEVEL 135 MG/DL (<150); VITAMIN B12 LEVEL 306 PG/ML (211-911)
[2022-10-24 18:44] LABS: HIV 1&2 SCREEN CENTAUR NEGATIVE (NEGATIVE)
[2022-10-24 18:52] LABS: HEPATITIS C VIRUS ABY INDEX < 0.0 INDEX (<0.8)
== END ==
LOC: M SFHCPLAZ 17:01
PROVIDERS: ATTEND Family Medicine
DX: R00.2 Palpitations (principal); R63.4 Abnormal weight loss; Z13.6 Encounter for screening for cardiovascular disorders; Z11.9 Encounter for screening for infectious and parasitic diseases, unspecified; K70.0 Alcoholic fatty liver

== ENCOUNTER 2023-11-23 11:02 | Emergency (ER) | payer OTHER ==
[~2023-11-23] VITALS: Ht 182.9 cm; Wt 83.2 kg
[2023-11-23 11:02] VITALS: BP 141/91; TEMP 98.1; O2SAT 96
[2023-11-23] MEDS: BOOSTRIX VACCINE (TETANUS/DIPHTH/ACEL. PERTUSSIS) 0.5ML SYR IM ONE (11:49)
[2023-11-23] MEDS: LIDOCAINE W/EPINEPHRINE 1% 20ML VIAL SC ONE (13:10)
[2023-11-23] MEDS: NEOSPORIN OINT 0.9 GM PKT TOP ONE (13:13)
[2023-11-23] MEDS: BACITRACIN OINTMENT 30GM TUBE TOP ONE (13:40)
== END 2023-11-23 13:42 | disposition home or self-care (01) ==
LOC: M ED 11:02
DX: S81.811A Laceration without foreign body, right lower leg, initial encounter (principal); W26.8XXA Contact with other sharp object(s), not elsewhere classified, initial encounter; F17.200 Nicotine dependence, unspecified, uncomplicated; F10.10 Alcohol abuse, uncomplicated; R51.9 Headache, unspecified; R25.1 Tremor, unspecified; K21.9 Gastro-esophageal reflux disease without esophagitis; I10 Essential (primary) hypertension; Y92.019 Unspecified place in single-family (private) house as the place of occurrence of the external cause; Y93.89 Activity, other specified; Y99.9 Unspecified external cause status; Z79.52 Long term (current) use of systemic steroids; Z79.899 Other long term (current) drug therapy; Z23 Encounter for immunization

== ENCOUNTER 2024-01-18 10:21 | Emergency (ER) | payer OTHER ==
[~2024-01-18] VITALS: Ht 182.9 cm; Wt 76.4 kg
[2024-01-18] MEDS: IPRATROPIUM 0.5MG/ALBUTEROL 2.5MG INH SOL UD 3ML (DUONEB) NEB ONE (16:03)
[2024-01-18] MEDS: ONDANSETRON 4MG 2ML VIAL IV ONE (16:09)
[2024-01-18] MEDS: MORPHINE 4 MG/ML 1ML VIAL IV ONE (16:10)
[2024-01-18] MEDS: NS 1,000 ML IV ONE (16:10)
[2024-01-18] MEDS ORDERED: ISOVUE-370 76% 100ML VIAL As Ordered ONE (16:15)
[2024-01-18 16:26] LABS: BASO % 0.6 % (0.0-1.0); EOS # 0.1 10^3/uL (0.0-0.5); EOS % 0.8 % (0.0-3.0); HEMATOCRIT 42.8 % (42.0-52.0); HEMOGLOBIN 15.1 g/dl (13.5-17.5); LYMPH # 1.4 10^3/uL (1.5-5.0); LYMPH % 22.3 % (24.0-44.0); MEAN CORPUSCULAR HEMOGLOBIN 35.5 pg (27.0-33.0); MEAN CORPUSCULAR HGB CONC 35.3 g/dl (32.0-36.5); MEAN CORPUSCULAR VOLUME 100.7 fl (80.0-96.0); MONO # 0.9 10^3/uL (0.0-0.8); MONO % 13.2 % (2.0-8.0); NEUTROPHILS % 62.5 % (36.0-66.0); PLATELET COUNT, AUTOMATED 199 10^3/uL (150-450); RED BLOOD COUNT 4.25 10^6/uL (4.30-6.10); WHITE BLOOD COUNT 6.4 10^3/uL (4.0-10.0)
[2024-01-18 16:38] LABS: INR 0.94; PARTIAL THROMBOPLASTIN TIME 34.6 SECONDS (24.8-34.2); PROTHROMBIN TIME 12.3 SECONDS (12.5-14.5)
[2024-01-18 16:43] LABS: ALBUMIN 3.3 G/DL (3.2-5.2); ALKALINE PHOSPHATASE 148 U/L (46-116); ALT/SGPT 56 U/L (7.0-40); AST/SGOT 42 U/L (<34); BILIRUBIN,TOTAL 0.3 MG/DL (0.3-1.2); BLOOD UREA NITROGEN 7 MG/DL (9-23); CALCIUM LEVEL 8.3 MG/DL (8.5-10.1); CARBON DIOXIDE LEVEL 27 MMOL/L (20-31); CHLORIDE LEVEL 105 MMOL/L (98-107); CREATININE FOR GFR 0.65 MG/DL (0.70-1.30); GLOMERULAR FILTRATION RATE > 60.0 (>60); GLUCOSE, FASTING 87 MG/DL (60-100); POTASSIUM SERUM 3.9 MMOL/L (3.5-5.1); SODIUM LEVEL 139 MMOL/L (136-145); TOTAL PROTEIN 6.7 G/DL (5.7-8.2)
[2024-01-18 18:53] LABS: APPEARANCE, URINE CLEAR (CLEAR); BACTERIA, URINE AUTO NEGATIVE (NEGATIVE); BILIRUBIN, URINE AUTO NEGATIVE (NEGATIVE); BLOOD, URINE BLOOD NEGATIVE (NEGATIVE); COLOR, URINE YELLOW (YELLOW); GLUCOSE, URINE (UA) AUTO NEGATIVE (NEGATIVE); KETONE, URINE AUTO NEGATIVE (NEGATIVE); LEUKOCYTE ESTERASE, URINE AUTO NEGATIVE (NEGATIVE); NITRITE, URINE AUTO NEGATIVE (NEGATIVE); PROTEIN, URINE AUTO NEGATIVE (NEGATIVE); RBC, URINE AUTO 0 /HPF (0-3); SPECIFIC GRAVITY URINE AUTO 1.038 (1.002-1.035); SQUAMOUS EPITHELIAL CELL UR AU 0 /HPF (0-6); UROBILINOGEN, URINE AUTO 0.2 mg/dL (0.0-2.0); WBC, URINE AUTO 1 /HPF (0-3)
[2024-01-18] MEDS ORDERED: NAPR-837 PO (19:31)
[2024-01-18] MEDS ORDERED: METH-1164 PO (19:31)
[2024-01-18 19:41] VITALS: BP 112/70; TEMP 98.1; O2SAT 93
== END 2024-01-18 19:55 | disposition home or self-care (01) ==
LOC: M ED 10:21
DX: S22.060A Wedge compression fracture of T7-T8 vertebra, initial encounter for closed fracture (principal); M54.50 Low back pain, unspecified; R31.9 Hematuria, unspecified; W10.8XXA Fall (on) (from) other stairs and steps, initial encounter; M48.02 Spinal stenosis, cervical region; M50.323 Other cervical disc degeneration at C6-C7 level; M25.78 Osteophyte, vertebrae; N40.1 Benign prostatic hyperplasia with lower urinary tract symptoms; N28.1 Cyst of kidney, acquired; J43.2 Centrilobular emphysema; I10 Essential (primary) hypertension; K21.9 Gastro-esophageal reflux disease without esophagitis; F17.200 Nicotine dependence, unspecified, uncomplicated; F10.10 Alcohol abuse, uncomplicated; Z91.018 Allergy to other foods; Z91.09 Other allergy status, other than to drugs and biological substances; Z79.52 Long term (current) use of systemic steroids; Z79.899 Other long term (current) drug therapy
CPT/HCPCS: 70450; 71101; 71260; 72072; 72125; 74177; 76775; 80047; 80053; 81001; 85025; 85610; 85730; 86850; 86900; 86901; 94640; 96361; 96374; 96375; 99284; J2405; Q9967